=== PATIENT | female | born 1985 | race Caucasian/White ===

== ENCOUNTER 2023-10-01 08:24 | Outpatient (REF) | payer OTHER, SELFPAY ==
[2023-10-07 12:08] LABS: Age Gdln ACOG Testing Note (.); HPV Aptima Negative (Negative); IGP, Aptima HPV, rfx 16/18,45 Note (.)
== END 2023-10-02 07:58 | disposition home or self-care (01) ==
LOC: LAB 08:24
PROVIDERS: Visit Provider Physician Assistant
DX: Z01.419 Encounter for gynecological examination (general) (routine) without abnormal findings (principal)
CPT/HCPCS: 87624; G0145

== ENCOUNTER 2024-10-06 20:49 | Outpatient (REF) | payer OTHER, SELFPAY ==
--- OUTSIDE RECORDS SUMMARY | 2024-10-06 20:52 | XMS_ITS | CCD ---
Author Organization [facility] Care Team Providers Care Induction Coordination Engineer Name Role Phone Tavon Rangel Unavailable Souleymane Bolton Unavailable DR VANDANA LEONARD Admitting Unavailable AISHA, DR ROSS Attending Unavailable AISHA, DR ROSS Primary Care Unavailable AISHA, DR ROSS Consulting Unavailable Unavailable Primary Care Provider UnavailJESSICA Wei Attending Unavailable Unavailable Primary Care Provider UnavailTavon Villarreal Primary Care Unavailable Tavon Rangel Attending Unavailable Tavon Rangel Admitting Unavailable Tavon Rangel Attending Unavailable Kuns, Tavon Admitting Unavailable Kuns, Tavon Primary Care Unavailable KunsTavon Attending Unavailable Kuns, Tavon Admitting Unavailable Kuns, Tavon Primary Care Unavailable Kuns, Tavon Attending Unavailable Kuns, Tavon Admitting Unavailable Kuns, Tavon Primary Care Unavailable Allergies Allergy Classification Reported Allergen(s) Allergy Type Date of Onset Reaction(s) Facility (20 sources) Acetaminophen / HYDROcodone; Translations: [Vicodin] Drug Allergy 02-04-20 15 hives and vomiting [facility] Repository (20 sources) Morphine; Translations: [MORPHINE] Drug Allergy 03-28-20 07 Hives [facility] Work Phone: (20 sources) Penicillin Drug Allergy [employer] Other (20 sources) rosuvastatin Drug Allergy 12-13-19 22 Headache/nause a [facility] Other (20 sources) Sulfacetamide Drug Allergy [facility] [employer] [facility] [employer] Other (1 source) Morphine Drug Allergy 02-04-20 15 [facility] Repository (2 sources) Penicillins; Translations: [PENICILLINS] Drug allergy (disorder) 05-02-20 06 [facility] Repository (1 source) Sulfonamides (Antibiotic) Drug allergy (disorder) 02-04-20 15 [facility] Repository (1 source) Morphine Drug Allergy hives and can't breathe [facility] Other (2 sources) Penicillins Propensity to adverse reactions 05-02-20 06 Rash [facility] (3 sources) Sulfonamides (Antibiotic); Translations: [SULFA (SULFONAMIDE ANTIBIOTICS)] Propensity to adverse reactions 08-31-20 03 Rash, Hives [facility] Work Phone: (1 source) Acetaminophen Drug Allergy 04-08-20 [facility] Repository (1 source) HYDROcodone Drug Allergy 04-08-20 [facility] Repository (1 source) Morphine Drug Allergy 04-08-20 24 [facility] Repository (1 source) Penicillins Drug allergy (disorder) 04-08-20 24 [facility] Repository (1 source) rosuvastatin Drug Allergy 04-08-20 24 [facility] Repository (1 source) Sulfacetamide Drug Allergy 04-08-20 [facility] Repository Medications Current Medications Medication Drug Class(es) Dates Sig (Normalized) Sig (Original) 0.5 ML semaglutide 0.5 MG/ML Auto-Injector [Wegovy] (1 source) Start: 07-17-2022 inject 0.5 mL by subcutaneous injection every week Wegovy 0.25 MG/0.5ML 0.5 ml Subcutaneous Weekly for 30 days Jul, Active 3 ML semaglutide 1.34 MG/ML Pen Injector [Ozempic] (10 sources) inject 1 mg by subcutaneous injection every week Ozempic (1 MG/DOSE) 4 MG/3ML DIAL AND INJECT UNDER THE SKIN 1 MG WEEKLY Subcutaneous weekly Active inject 1 mg by subcu taneous injection every week Ozempic (1 MG/DOSE) 4 MG/3ML DIAL AND INJECT UNDER THE SKIN 1 MG WEEKLY Subcutaneous weekly for 28 days Active inject 1 mg by subcu taneous injection every week Ozempic (1 MG/DOSE) 4 MG/3ML DIAL AND INJECT UNDER THE SKIN 1 MG WEEKLY for 28 Active acetaminophen 500 mg oral tablet (2 sources) Start: 11-11-2009 acetaminophen(TYLENOL EXTRA STRENGTH 500 MG TAB) Take two(2) tablets every four(4) to six(6) hours as needed. 0 11/11/2009 Active Comment on above: Take two(2) tablets every four(4) to six(6) hours as needed. acetaminophen 325 mg / oxyCODONE hydrochloride 5 mg oral tablet (2 sources) Opioid Agonist Start: 04-18-2007 oxycodone-acetaminophen (PERCOCET) 5-325 mg ORAL Tab as needed/ not every day 0 04/18/2007 Active Comment on above: as needed/ not every day ALPRAZolam 1 mg oral tablet (2 sources) Benzodiazepine Start: 12-10-2023 ALPRAZolam 1 MG 1 or 2 tablets Orally every 8 hours as needed for flying Dec, Active atorvastatin 10 mg oral tablet (20 sources) HMG-CoA Reductase Inhibitor Start: 12-13-2021 take 1 tablet by mouth every twenty-fou r hours Atorvastatin Calcium 10 MG 1 tablet Orally Once a day Dec, Active take 1 tablet by mouth once sierra y atorvastatin (LIPITOR) 40 mg tablet Take 40 mg by mouth once daily. 0 Active azithromycin 250 mg oral tablet (6 sources) Macrolide Antimicrobial Start: 11-27-2023 Zithro max Z-Austin 250 MG as directed Orally as directed Nov, Active Start: 02-08-2022 take 2 tablets by [facility] once daily, then take 1 tablet by mouth once daily Azithromycin 250 MG 2 tablet on the first day, then 1 tablet daily for 4 days Orally as directed Jan, Active cefuroxime 500 mg oral tablet (3 sources) Cephalosporin Antibacterial Start: 04-08-2019 take 1 tablet by mouth every twelve hours Cefuroxime Axetil 500 MG 1 tablet Orally Twice a day for 7 days April, Active Chantix Starting Month Austin 0.5 MG X 11 & 1 MG X 42 (3 sources) Chantix Starting Month Austin 0.5 MG X 11 & 1 MG X 42 as directed Orally As directed Active Chantix Starting Month [place] 0.5 MG X 11 & 1 MG X 42 as directed Orally As directed for 30 days Active clarithromycin 500 mg oral tablet (1 source) Macrolide Antimicrobial Start: 03-13-2024 End: 03-20-2024 take 1 tablet by mouth twice daily clarithromycin (BIAXIN) 500 mg Take 1 tablet by mouth two times a day for 7 days. 14 tablet 0 03/13/2024 03/20/2024 Active Comment on above: Take 1 tablet by anton th two times a day for 7 days. cyclobenzaprine hydrochloride 10 mg oral tablet (20 sources) Muscle Relaxant Start: 02-06-2021 take 1 tablet by mouth three times daily as needed Cyclobenzaprine HCl 10 MG 1 tablet Orally tid prn for 30 days Jan, Active 21 day ethinyl estradiol 0.760058 mg/hr / etonogestrel 0.005 mg/hr vaginal system (20 sources) Progestin, Estrogen Start: 03-21-2007 Etonogestrel-Ethinyl Estradiol (NUVARING) 0.12-0.015 mg/24 hr VAGINAL Ring as directed 0 03/21/2007 Active NuvaRing 0.12-0. 015 MG/24HR 1 ring Vaginal Active Comment on above: as directed 1 ml galcanezumab-gnlm 120 mg/ml auto-injector (20 sources) Start: 02-15-2020 inject 1 mL by subcutaneous injection every month Emgality 120 MG/ML 1 ml Subcutaneous monthly Jan, Active inject 120 mg by sub cutaneous injection every month galcanezumab-gnlm (EMGALITY SYRINGE) 120 mg/mL syringe Inject 120 mg subcutaneously once every month. Do not shake. 0 Active ibuprofen 800 mg oral tablet (20 sources) Nonsteroidal Anti-inflammatory Drug Start: 03-17-2020 take 1 tablet by mouth three times daily at mealtime as needed Ibuprofen 800 MG 1 tablet with food or milk as needed Orally Three times a day PRN Mar, Active methylPREDNISolone (1 source) Corticosteroid Start: 03-23-2024 methylPREDNISolone (MEDROL DOSE-PACK) 4 mg Dose-Pack As Instructed per package 21 tablet 0 03/23/2024 Active ozempic (1 mg/dose) 4 mg/3ml solution pen-injector (4 sources) inject 1 mg by subcutaneous injection every week Ozempic (1 MG/DOSE) 4 MG/3ML DIAL AND INJECT UNDER THE SKIN 1 MG WEEKLY Subcutaneous weekly Active 0.25 mg, 0.5 mg dose 1.5 ml semaglutide 1.34 mg/ml pen injector (4 sources) Start: 07-30-2022 Ozempic (0.25 or 0.5 MG/DOSE) 2 MG/1.5ML 0.25 mg for 4 weeks then increase to 0.5 mg Subcutaneous Weekly for 30 day(s) Jul, Active Ozempic (0.25 or 0.5 MG/DOSE) 2 MG/1.5ML 0.5 mg p.o. weekly for 30 Active SUMAtriptan 100 mg oral tablet (20 sources) Serotonin-1b and Serotonin-1d Receptor Agonist Start: 11-20-2017 take 1 tablet by mouth once daily as needed SUMAtriptan Succinate 100 mg 1 tablet Orally once a day as needed PRN Nov, Active varenicline 1 mg oral tablet (5 sources) Partial Cholinergic Nicotinic Agonist Start: 11-05-2023 take 1 tablet by mouth every twelve hours Varenicline Tartrate(Continue ) 1 MG 1 tablet Orally bid for 30 days Chantix Nov, Active zolpidem tartrate 10 mg oral tablet (20 sources) gamma-Aminobutyric Acid-ergic Agonist Start: 02-26-2023 take 1 tablet by mouth at bedtime as needed Zolpidem Tartrate 10 mg 1 tablet at bedtime as needed Orally at bedtime PRN Jan, Active Start: 05-17-2022 take 1 tablet by anton th at bedtime as needed Zolpidem Tartrate 10 mg 1 tablet at bedtime as needed Orally at bedtime PRN May, Active Start: 10-25-2021 take 1 tablet by anton th once daily at bedtime as needed Zolpidem Tartrate 10 mg 1 tablet at bedtime as needed Orally QHS PRN Oct, Active Completed/Discontinued Medications Medication Drug Class(es) Dates Sig (Normalized) Sig (Original) famotidine 26.6 mg / ibuprofen 800 mg oral tablet (9 sources) Nonsteroidal Anti-inflammatory Drug, Histamine-2 Receptor Antagonist Start: 12-27-2020 take 1 tablet by mouth every eight hours Duexis 800-26.6 MG 1 tablet Orally Three times a day PRN Dec, Not-Taking Ketorolac (20 sources) Nonsteroidal Anti-inflammatory Drug, Cyclooxygenase Inhibitor Start: 03-04-2017 Toradol per 15 mg Mar, 2.0 cc metFORMIN hydrochloride 500 mg oral tablet (4 sources) Biguanide Start: 05-17-2022 take 1 tablet by mouth every twelve hours metFORMIN HCl 500 MG 1 tablet with a meal Orally Twice a day for 30 day(s) May, Not-Taking Nalbuphine (20 sources) Opioid Agonist/Antagonist Start: 03-10-2013 Nubain per 10 mg Mar, 1 mL tiZANidine 4 mg oral tablet (11 sources) Central alpha-2 Adrenergic Agonist Start: 01-18-2020 take 1 tablet by mouth twice daily as needed tiZANidine HCl 4 MG 1 tablet as needed Orally BID prn for 30 days Jan, Not-Taking Start: 11-11-2009 tizanidine hcl (ZANAFLEX 4 MG TAB) Take one(1) tablet daily at bedtime 0 11/11/2009 Active Comment on above: Take one(1) tablet d aily at bedtime Problems Active Problems Problem Classification Problem Date Documented Da te Episodic/Chronic Anxiety disorders (20 sources) Fear of flying; 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 Diabetes mellitus without complication (20 sources) Hyperglycemia; Translations: [Hyperglycemia, unspecified] Onset: 2 Resolved: 2 Episodic Diseases of white blood cells (20 sources) Leukocytosis; Translations: [Elevated white blood cell count, unspecified] Onset: 2 Resolved: 2 Chronic Disorders of lipid metabolism (20 sources) Hyperlipidemia; Translations: [Hyperlipidemia, unspecified] Onset: 2 Resolved: 2 Chronic Esophageal disorders (20 sources) Gastroesophageal reflux disease; Translations: [Gastro-esophageal reflux disease without esophagitis] Chronic Headache; including migraine (20 sources) Migraine; Translations: [Migraine, unspecified, not intractable, without status migrainosus] Onset: 2 Resolved: 2 Chronic Headache; including migraine (20 sources) Headache; Translations: [Headache] Episodic Immunizations and screening for infectious disease (2 sources) Encounter for screening for human papillomavirus (HPV); Translations: [Encounter for immunization] Onset: 2 Episodic Malaise and fatigue (8 sources) Fatigue; Translations: [Chronic fatigue, unspecified] Chronic Nausea and vomiting (2 sources) Nausea Episodic Other aftercare (5 sources) Encounter for therapeutic drug level monitoring Episodic Other circulatory disease (1 source) Hypotension, unspecified Episodic Other connective tissue disease (20 sources) Polymyalgia; Translations: [Polymyalgia rheumatica] Chronic Other connective tissue disease (20 sources) Pain in right hand; Translations: [Pain in right hand] Episodic Other connective tissue disease (20 sources) Weakness of right hand; Translations: [Other symptoms and signs involving the musculoskeletal system] Episodic Other gastrointestinal disorders (19 sources) Constipation; Translations: [Constipation, unspecified] Episodic Other gastrointestinal disorders (2 sources) Constipation, unspecified Episodic Other nervous system disorders (20 sources) Carpal tunnel syndrome; Translations: [Carpal tunnel syndrome, unspecified upper limb] Chronic Other non-traumatic joint disorders (20 sources) Shoulder joint pain; Translations: [Pain in right shoulder] Episodic Other non-traumatic joint disorders (20 sources) Knee pain; Translations: [Pain in left knee] Episodic Other nutritional; endocrine; and metabolic disorders (20 sources) Body mass index 30+ - obesity; Translations: [Obesity, unspecified] Chronic Other nutritional; endocrine; and metabolic disorders (20 sources) Obese class I; Translations: [Body mass index (BMI) 34.0-34.9, adult] Chronic Other nutritional; endocrine; and metabolic disorders (20 sources) Obesity; Translations: [Obesity, unspecified] Chronic Other nutritional; endocrine; and metabolic disorders (1 source) Body mass index (BMI) 34.0-34.9, adult Onset: 2 Resolved: 2 Chronic Other nutritional; endocrine; and metabolic disorders (19 sources) Metabolic syndrome X; Translations: [Metabolic syndrome] Chronic Other nutritional; endocrine; and metabolic disorders (4 sources) Obesity, unspecified Chronic Other nutritional; endocrine; and metabolic disorders (5 sources) Metabolic syndrome Chronic Other nutritional; endocrine; and metabolic disorders (2 sources) Overweight Episodic Other upper respiratory infections (20 sources) Sinusitis; Translations: [Chronic sinusitis, unspecified] Onset: 2 Resolved: 2 Chronic Otitis media and related conditions (2 sources) Otitis media, unspecified, bilateral; Translations: [Dysfunction of bilateral eustachian tubes] Episodic Residual codes; unclassified (20 sources) Insomnia; Translations: [Insomnia, unspecified] Episodic Residual codes; unclassified (20 sources) FH: Autoimmune disease; Translations: [Family history of diseases of the blood and blood-forming organs and certain disorders involving the immune mechanism] Episodic Residual codes; unclassified (6 sources) Insomnia, unspecified Onset: 2 Resolved: 2 Episodic Residual codes; unclassified (5 sources) Tobacco use Episodic Spondylosis; intervertebral disc disorders; other back problems (2 sources) Cervicalgia Onset: 2 Resolved: 2 Episodic Substance-related disorders (20 sources) Tobacco user; Translations: [Nicotine dependence, cigarettes, uncomplicated] Chronic Unclassified (1 source) Chronic fatigue, unspecified; Translations: [Chronic fatigue, unspecified] Onset: 3 Past or Other Problems Problem Classification Problem Date Documented Da te Episodic/Chronic Abdominal hernia (2 sources) Inguinal hernia; Translations: [Unilateral inguinal hernia, without obstruction or gangrene, not specified as recurrent] Onset: 04-22-2007 04-22-2007 Episodic Administrative/social admission (20 sources) Dietary management surveillance; Translations: [Dietary counseling and surveillance] Onset: 12-04-2023 Episodic Allergic reactions (2 sources) Contact dermatitis; Translations: [Unspecified contact dermatitis due to other agents] Onset: 05-21-2006 05-21-2006 Episodic Malaise and fatigue (3 sources) Other fatigue; Translations: [Other fatigue] Onset: 02-08-2022 Resolved: 02-08-2022 Episodic Other ear and sense organ disorders (1 source) Otalgia, left ear Onset: 02-08-2022 Resolved: 02-08-2022 Episodic Other screening for suspected conditions (not mental disorders or infectious disease) (4 sources) Encounter for screening for malignant neoplasm of cervix; Translations: [ENC SCREENING MALIG NEOPLASM CERV] Onset: 02-06-2022 Episodic Results Test Name Value Interpretation Reference Range Facil ity A1C with Estimated Average G [place] 04-07-2024 Glucose [Mass/Vol] 108 mg/dL Normal [facility] Comment on above: Order Comment: Reaso n for Exam Prediabetes Result Comment: PERF ORMED BY: [place] [address] [place] [address] PATHOLOGIST BOBBIN INSPECTOR TRU DUNCAN M.D. Performed By: #### A 1C WT eA #### [facility] [address] HbA1c (Bld) [Mass fraction] 5.4 % Normal 4.3-5.6 [facility] Comment on above: Order Comment: Reaso n for Exam Prediabetes Result Comment: Incr eased risk for diabetes: 5.7 - 6.4 diabetes: >6.4 glycemic control for adults with diabetes: <7.0 Performed By: #### A 1C WT eA #### [facility] [address] Comprehensive Metabolic Pane tomi 04-07-2024 Albumin [Mass/Vol] 4.4 g/dL Normal 3.5-5.7 [facility] Comment on above: Order Comment: Reaso n for Exam Hyperlipidemia Performed By: #### C MP, LIPID #### [address] Albumin/Globulin [Mass ratio] 1.8 {ratio} Normal [facility] Comment on above: Order Comment: Reaso n for Exam Hyperlipidemia Performed By: #### C MP, LIPID #### [address] ALP [Catalytic activity/Vol] 38 U/L Normal 34-104 [facility] Comment on above: Order Comment: Reaso n for Exam Hyperlipidemia Performed By: #### C MP, LIPID #### [address] ALT [Catalytic activity/Vol] 11 U/L Normal 7-52 [facility] Comment on above: Order Comment: Reaso n for Exam Hyperlipidemia Performed By: #### C MP, LIPID #### [address] Anion gap [Moles/Vol] 12.0 mmol/L Normal 6.0-15.0 [facility] Comment on above: Order Comment: Reaso n for Exam Hyperlipidemia Performed By: #### C MP, LIPID #### [address] AST [Catalytic activity/Vol] 13 U/L Normal 13-39 [facility] Comment on above: Order Comment: Reaso n for Exam Hyperlipidemia Performed By: #### C MP, LIPID #### [facility] [address] Bilirubin [Mass/Vol] 0.4 mg/dL Normal 0.3-1.0 [facility] Comment on above: Order Comment: Reaso n for Exam Hyperlipidemia Performed By: #### C MP, LIPID #### [facility] [address] Calcium [Mass/Vol] 9.3 mg/dL Normal 8.6-10.3 [facility] Comment on above: Order Comment: Reaso n for Exam Hyperlipidemia Performed By: #### C MP, LIPID #### [facility] [address] [place] [address] Chloride [Moles/Vol] 108 mmol/L High 98-107 [facility] Comment on above: Order Comment: Reaso n for Exam Hyperlipidemia Performed By: #### C MP, LIPID #### [facility] [address] [place] [address] CO2 [Moles/Vol] 25.3 mmol/L Normal 21.0-31.0 [facility] Comment on above: Order Comment: Reaso n for Exam Hyperlipidemia Performed By: #### C MP, LIPID #### [facility] [address] [place] [address] Creatinine [Mass/Vol] 0.66 mg/dL Normal 0.60-1.20 [facility] Comment on above: Order Comment: Reaso n for Exam Hyperlipidemia Performed By: #### C MP, LIPID #### [facility] [address] [place] [address] [place] GFR/1.73 sq M.predicted MDRD (S/P/Bld) [Vol rate/Area] mL/min/{1.73_m2} Normal [facility] Comment on above: Order Comment: Reaso n for Exam Hyperlipidemia Performed By: #### C MP, LIPID #### [facility] [address] [place] [address] [place] Globulin (S) [Mass/Vol] 2.5 g/dL Normal [facility] Comment on above: Order Comment: Reaso n for Exam Hyperlipidemia Performed By: #### C MP, LIPID #### [address] Glucose [Mass/Vol] 97 mg/dL Normal 70-100 [facility] Comment on above: Order Comment: Reaso n for Exam Hyperlipidemia Result Comment: [facility] Glucose Reference Range is dependent on time and content of last meal. Glucose of more than 200 mg/dL in a nonstressed, ambulatory subject supports the diagnosis of Diabetes Mellitus. ADA recommended reference range Performed By: #### C MP, LIPID #### [address] Potassium [Moles/Vol] 4.3 mmol/L Normal 3.5-5.1 [facility] Comment on above: Order Comment: Reaso n for Exam Hyperlipidemia Performed By: #### C MP, LIPID #### [address] Protein [Mass/Vol] 6.9 g/dL Normal 6.4-8.9 [facility] Comment on above: Order Comment: Reaso n for Exam Hyperlipidemia Performed By: #### C MP, LIPID #### [address] Sodium [Moles/Vol] 141 mmol/L Normal 136-145 [facility] Comment on above: Order Comment: Reaso n for Exam Hyperlipidemia Performed By: #### C MP, LIPID #### [address] Urea nitrogen [Mass/Vol] 16 mg/dL Normal 7-25 [facility] Comment on above: Order Comment: Reaso n for Exam Hyperlipidemia Performed By: #### C MP, LIPID #### [address] Lipid Panelon 04-07-2024 Cholesterol [Mass/Vol] 166 mg/dL Normal 140-200 [facility] Comment on above: Order Comment: Reaso n for Exam Hyperlipidemia Result Comment: Chol less than 200 mg/dl low risk Chol 201-239 mg/dl borderline risk Chol 240 mg/dl and greater high risk Performed By: #### C MP, LIPID #### [facility] [address] [place] [id number] [place] Cholesterol in HDL [Mass/Vol] 59 mg/dL Normal 23-92 [facility] Comment on above: Order Comment: Reaso n for Exam Hyperlipidemia Result Comment: HDL CHOL ATP-III CLASSIFICATION Cardiovascular Risk HDL > or equal to 60 mg/dL LOW HDL < 40 mg/dL HIGH Performed By: #### C MP, LIPID #### [facility] [address] [place] [address] [place] Cholesterol.total/C holesterol in HDL [Mass ratio] 2.8 {ratio} Normal <5.0 [facility] Comment on above: Order Comment: Reaso n for Exam Hyperlipidemia Result Comment: PERF ORMED BY: [place] [address] PATHOLOGIST BOBBIN INSPECTOR TRU DUNCAN M.D. Performed By: #### C MP, LIPID #### [facility] [address] LDL Cholesterol,Calcula abdirashid 95 mg/dL Normal 0-100 [facility] Comment on above: Order Comment: Reaso n for Exam Hyperlipidemia Result Comment: LDL ATP III CLASSIFICATION LDL less than 100 mg/dL Optimal LDL 100-129 mg/dL Near or above optimal LDL 130-159 mg/dL Borderline high LDL 160-189 mg/dL High LDL greater than 189 mg/dL Very high Performed By: #### C MP, LIPID #### [facility] [address] [place] [id number] [place] Triglyceride w/Reflex 59 mg/dL Normal 0-149 [facility] Comment on above: Order Comment: Reaso n for Exam Hyperlipidemia Result Comment: TRIG ATP III CLASSIFICATION TRIG less than 150 mg/dL Normal TRIG 150-199 mg/dL Borderline high TRIG 200-500 mg/dL High TRIG greater than 500 mg/dL Very high Standard traceable to the Center for Disease Conrtrol and Prevention (CDC) test method. Performed By: #### C MP, LIPID #### [facility] [address] [place] [id number] [place] VLDL CHOLESTEROL 11 mg/dL Normal [facility] Comment on above: Order Comment: Kaleb benoit for Exam Hyperlipidemia Performed By: #### C MP, LIPID #### [facility] [address] [place] [id number] [facility] CNOVon 03-23-2024 CNOV Office Visit (OTOLCR ) JUSTINO KELLER ([id number]) 1985 F Date Time Provider Department 03/23/24 9:45 AM JESSICA CEDILLO OTOLCR During your visit today, we recorded the following information about you: Jessica Cedillo PA-C 03/23/2024 10:05 AM Signed History of Present Illness Ms. JUSTINO KELLER is a 38 year old year old female presenting for: referred by No referring provider defined for this encounter. And is a patient of No primary care provider on file. To use this Smartlink, specify the provider ID whose address you want to display, e.g., .[email or web address][1 (where 1 is the provider ID). Communication will be via the electronic record and letter. States that both ears have reduced hearing for around one month, sudden onset after an upper respiratory infection. She will experience a throbbing sensation in both ears at night, and some ringing during the day. She states that she has felt this sensation of muffled hearing and pressure gradually improving in both ears, and this morning she was able to pop her ears with valsalva for the first itme with further improvement. This has happened before in the past, but has never lasted this long. She was evaluated by PCP and Dr. Skinner in the past month, both noted bilateral middle ear effusion per patient. Otalgia: denies Otorrhea: denies Dizziness/Imbalance: denies Facial Numbness, Weakness or Tingling: denies Ear Surgery or Tube Placement: Reports a tube in the Left ear ~4-5 years ago from an outside ENT. Also two rounds in childhood. Medical History: ACTIVE PROBLEM LIST DERMATITIS , CONTACT Inguinal Hernia Without Mention of Obstruction Or Gangrene, Unilateral Or Unspecified, (Not Specified As Recurrent) Surgical History: No past surgical history on file. Allergies: ALLERGIES Allergen Reactions Morphine Hives Penicillins Rash Sulfa (Sulfonamide * Rash, Hives Medications: Current Outpatient Medications on File Prior to Visit Medication Sig tizanidine hcl(ZANAFLEX 4 MG TAB) Take one(1) tablet daily at bedtime acetaminophen(TYLENOL EXTRA STRENGTH 500 MG TAB) Take two(2) tablets every four(4) to six(6) hours as needed. oxycodone-acetaminophe n (PERCOCET) 5-325 mg ORAL Tab as needed/ not every day Etonogestrel-Ethinyl Estradiol (NUVARING) 0.12-0.015 mg/24 hr VAGINAL Ring as directed No current facility-administered medications on file prior to visit. Social History: No family history on file. Review of Systems: Positive: As above Negative: Fever, shortness of breath Objective: Last menstrual period 03/11/2007. Appearance: Well appearing, alert, in no acute distress, well-hydrated, well nourished. Communication: Able to speak and communicates clearly Head/Face: normocephalic, no masses, lesions, tenderness or abnormalities Facial nerve: Normal 1/6 bilaterally Skin: no skin lesions or scarring on face Ophthalmic: Full ocular motility intact; pupils symmetric Ears: AD EAC clear. TM intact, slightly retracted. Middle ear aerated. EAC clear. TM intact, slightly retracted with dimeric area anteroinferior consistent with previous PE tube placement. Middle ear aerated. Jeremías Angela AD [phone] Center AC>BC AC>BC 1024 Nose: external exam with straight profile Oropharynx: Uvula hangs midline; mucosa is pink and moist; tonsils present Neck: No cervical or supraclavicular lymphadenopathy Neuro/Psych.: Alert and oriented - no nystagmus Cranial nervesIII, IV, : EOM normal VII: Normal strength in all divisions IX, X: Normal voice, platal elevation and sensation XII: Tongue mobility normal Gait: normal for age Eye movements: full in all gaze positions, no nystagmus Assessment: H69.93 Dysfunction of both eustachian tubes (primary encounter diagnosis) Plan: Prescribed medrol dose pack, and instructed patient to continue flonase BID until symptoms resolve Instructed patient to reach out to me in 1 month if she continues to experience ear pressure/muffling, we will obtain an audiogram at that time. Jessica Cedillo PA-C Otology Medical Decision Making: Problems: Moderate: New problem with uncertain prognosis Risk: Low: Low risk from testing/treatment Moderate: Drug management Medical Decision Making Level: 4 - Moderate Jessica Cedillo PA-C 03/23/2024 9:56 AM Addendum Take the medrol dose pack, stay on the flonase until you feel back to your baseline. If you get to 8 week aleah and you still feel symptoms then reach out, we will schedule a hearing test and then follow-up after Allergies As of Date: 03/23/2024 Noted Allergy Reaction MORPHINE 03/28/2007 4 - Hives PENICILLINS 05/02/2006 2 - Rash SULFA (SULFONAMIDE ANTIBIOTICS) 08/31/2003 2 - Rash 4 - Hives Date Reviewed: 03/23/2024 Reviewed by: Kayla Dill RN - Fully Assessed Reason for Visit: Ear Infection [816] Cmt: Bilateral ear infec (more content not included)... Normal [facility] Dung 03-11-2024 CNPN Telephone (OTOLMN) JUSTINO MONTGOMERY ([id number]) 1985 F Date Time Provider Department 03/11/24 SHUN SKINNER OTOLMN During your visit today, we recorded the following information about you: April Alvarez 03/11/2024 3:32 PM Signed Person Calling: Patient Reason for Call: Patient calked and stated that she seen Dr. Skinner with her mom yesterday, and a prescription was supposed to be put in for an antibiotic and another medication for infected ears. Pt Phone #: [phone] Pharmacy Name and # : [facility] [phone] Pt last seen: Visit date not found Candida Topete RN 03/11/2024 3:57 PM Signed Called patient and she said that Dr. Skinner saw her yesterday when she came for an appointment with her mom. She states that Dr. Skinner was going to send in antibiotic ear drops until she could see Jessica the IRENE later in the month. Would you be able to assist in filling the ear drops? Candida Foote RN 03/11/2024 4:24 PM Signed Called and updated provider April Alvarez 03/12/2024 3:28 PM Signed Patient called back and said the pharmacy has yet received the prescription for the medication. She would like a call back with an update. April Alvarez Allergies As of Date: 03/11/2024 Noted Allergy Reaction MORPHINE 03/28/2007 4 - Hives PENICILLINS 05/02/2006 2 - Rash SULFA (SULFONAMIDE ANTIBIOTICS) 08/31/2003 2 - Rash 4 - Hives Date Reviewed: 11/11/2009 Reviewed by: Chadwick Lyle - Reviewed Reason for Visit: Medication Problem [65] Order(s):clarithromyci n (BIAXIN) 500 mgTake 1 tablet by mouth two times a day for 7 days.Disp: 14 tabletRfl: 0 Prescriptions as of 03/13/2024 - clarithromycin (BIAXIN) 500 mg Take 1 tablet by mouth two times a day for 7 days. - tizanidine hcl(ZANAFLEX 4 MG TAB) Take one(1) tablet daily at bedtime - acetaminophen(TYLENOL EXTRA STRENGTH 500 MG TAB) Take two(2) tablets every four(4) to six(6) hours as needed. - oxycodone-acetaminophe n (PERCOCET) 5-325 mg ORAL Tab as needed/ not every day - Etonogestrel-Ethinyl Estradiol (NUVARING) 0.12-0.015 mg/24 hr VAGINAL Ring as directed Problem List As Of Date 03/11/2024 Noted Resolved DERMATITIS , CONTACT [L25.8] 05/21/2006 UNILAT INGUINAL HERNIA [K40.90] 04/22/2007 Prescriptions ordered this encounter Disp Refills Start End CLARITHROMYCIN 500 MG TABLET 14 t* 0 03/13/2024 03/20/2024 Route: ORAL Sig: Take 1 tablet by mouth two times a day for 7 days. Encounter Status:Closed by BRUCE RAMIREZ on 03/13/24 Normal [facility] CMV IgG Antibodyon 3 CMV IgG Antibody <0.60 Normal 0.00-0.59 [facility] Comment on above: Order Comment: Reaso n for Exam Hyperlipidemia Result Comment: Nega tive <0.60 Equivocal 0.60 - 0.69 Positive >0.69 Performed By: #### C MP, LIPID #### [address] CMV IgM Antibodyon 3 CMV IgM Antibody <30.0 Normal 0.0-29.9 [facility] Comment on above: Order Comment: Reaso n for Exam Hyperlipidemia Result Comment: Nega tive <30.0 Equivocal 30.0 - 34.9 Positive >34.9 A positive result is generally indicative of acute infection, reactivation or persistent IgM production. Performed at: [facility] [address] [id number] Online Marketing Analyst: Gavin Allan PhD, Phone: [phone] PERFORMED BY: [place] [address] PATHOLOGIST BOBBIN INSPECTOR TRU DUNCAN M.D. Performed By: #### C MP, LIPID #### [address] EBV Acute Infection Ab Profi elmira 10-23-2023 EBV Ab VCA, IgG 525.0 High 0.0-17.9 [facility] Comment on above: Order Comment: Reaso n for Exam Hyperlipidemia Result Comment: Nega tive <18.0 Equivocal 18.0 - 21.9 Positive >21.9 Performed By: #### C MP, LIPID #### [address] EBV Ab VCA, IgM <36.0 Normal 0.0-35.9 [facility] Comment on above: Order Comment: Reaso n for Exam Hyperlipidemia Result Comment: Nega tive <36.0 Equivocal 36.0 - 43.9 Positive >43.9 Performed By: #### C MP, LIPID #### [address] EBV Interp Normal . [facility] Comment on above: Order Comment: Reaso n for Exam Hyperlipidemia Result Comment: EBV Interpretation Chart Solis: Antibody Present + Antibody Absent - Interpretation VCA-IgM VCA-IgG EBNA-IgG No previous infection/ - - - Susceptible Primary infection (new + + - or recent) Past Infection +or- + + See comment below* + - - *Results indicate infection with EBV at some time however cannot predict the timing of the infection since antibodies to EBNA usually develop after primary infection or, alternatively, approximately 5-10% of patients with EBV never develop antibodies to EBNA. Performed at: [facility] [address] [id number] Online Marketing Analyst: Gavin Allan PhD, Phone: [phone] Performed By: #### C MP, LIPID #### [address] EBV Nuclear Antigen Abs, IgG >600.0 High 0.0-17.9 [facility] Comment on above: Order Comment: Reaso n for Exam Hyperlipidemia Result Comment: Nega tive <18.0 Equivocal 18.0 - 21.9 Positive >21.9 Performed By: #### C MP, LIPID #### [address] [place] 10-23-2023 [place] Negative Normal Negative [facility] Comment on above: Order Comment: Reaso n for Exam Chronic fatigue Result Comment: PERF ORMED BY: [place] [address] PATHOLOGIST BOBBIN INSPECTOR TRU DUNCAN M.D. Performed By: #### M ONOTEST #### [address] #### CMVIGG, CMVIGM, EBV ACUTE PROF #### [facility] , A1C with Estimated Average G luon 10-03-2023 Glucose [Mass/Vol] 117 mg/dL Normal [facility] Comment on above: Order Comment: Reaso n for Exam Pre-diabetes Result Comment: PERF ORMED BY: [place] [address] PATHOLOGIST BOBBIN INSPECTOR TRU DUNCAN M.D. Performed By: #### T 4F, TSH3, CBC, CMP, A1C WTH eA, LIPID #### [address] HbA1c (Bld) [Mass fraction] 5.7 % High 4.3-5.6 [facility] Comment on above: Order Comment: Reaso n for Exam Pre-diabetes Result Comment: Incr eased risk for diabetes: 5.7 - 6.4 diabetes: >6.4 glycemic control for adults with diabetes: <7.0 Performed By: #### T 4F, TSH3, CBC, CMP, A1C WTH eA, LIPID #### [address] Complete Blood Count Auto Di ffon 10-03-2023 Basophils (Bld) [#/Vol] 0.1 10*3/uL Normal 0.0-0.2 [facility] Comment on above: Order Comment: Reaso n for Exam Hyperlipidemia Result Comment: PERF ORMED BY: [place] [address] PATHOLOGIST BOBBIN INSPECTOR TRU DUNCAN M.D. Performed By: #### T 4F, TSH3, CBC, CMP, A1C WTH eA, LIPID #### [place] [address] [place] Basophils/100 WBC (Bld) 0.8 % Normal . [facility] Comment on above: Order Comment: Reaso n for Exam Hyperlipidemia Performed By: #### T 4F, TSH3, CBC, CMP, A1C WTH eA, LIPID #### [place] [address] [place] Eosinophils (Bld) [#/Vol] 0.2 10*3/uL Normal 0.0-0.45 [facility] Comment on above: Order Comment: Reaso n for Exam Hyperlipidemia Performed By: #### T 4F, TSH3, CBC, CMP, A1C WTH eA, LIPID #### [facility] [address] [place] [address] [place] Eosinophils/100 WBC (Bld) 2.4 % Normal . [facility] Comment on above: Order Comment: Reaso n for Exam Hyperlipidemia Performed By: #### T 4F, TSH3, CBC, CMP, A1C WTH eA, LIPID #### [facility] [address] Erythrocyte distribution width (RBC) [Ratio] 13.5 % Normal 11.9-15.3 [facility] Comment on above: Order Comment: Reaso n for Exam Hyperlipidemia Performed By: #### T 4F, TSH3, CBC, CMP, A1C WTH eA, LIPID #### [facility] [address] [place] [address] Hematocrit (Bld) [Volume fraction] 41.3 % Normal 34.0-46.4 [facility] Comment on above: Order Comment: Reaso n for Exam Hyperlipidemia Performed By: #### T 4F, TSH3, CBC, CMP, A1C WTH eA, LIPID #### [facility] [address] [place] [address] [place] Hemoglobin (Bld) [Mass/Vol] 14.0 g/dL Normal 11.8-15.4 [facility] Comment on above: Order Comment: Reaso n for Exam Hyperlipidemia Performed By: #### T 4F, TSH3, CBC, CMP, A1C WTH eA, LIPID #### [facility] [address] [place] [address] [place] Lymphocytes (Bld) [#/Vol] 2.0 10*3/uL Normal 1.00-4.8 [facility] Comment on above: Order Comment: Reaso n for Exam Hyperlipidemia Performed By: #### T 4F, TSH3, CBC, CMP, A1C WTH eA, LIPID #### [facility] [address] [place] [address] [place] Lymphocytes/100 WBC (Bld) 19.4 % Normal . [facility] Comment on above: Order Comment: Reaso n for Exam Hyperlipidemia Performed By: #### T 4F, TSH3, CBC, CMP, A1C WTH eA, LIPID #### [address] MCH (RBC) [Entitic mass] 31.2 pg Normal 24.7-34.3 [facility] Comment on above: Order Comment: Reaso n for Exam Hyperlipidemia Performed By: #### T 4F, TSH3, CBC, CMP, A1C WTH eA, LIPID #### [address] MCV (RBC) [Entitic vol] 92.2 fL Normal 80-100 [facility] Comment on above: Order Comment: Reaso n for Exam Hyperlipidemia Performed By: #### T 4F, TSH3, CBC, CMP, A1C WTH eA, LIPID #### [address] Mean Corpuscular HGB Conc 33.8 g/dL Normal 32.0-35.0 [facility] Comment on above: Order Comment: Reaso n for Exam Hyperlipidemia Performed By: #### T 4F, TSH3, CBC, CMP, A1C WTH eA, LIPID #### [address] Monocytes (Bld) [#/Vol] 0.5 10*3/uL Normal 0.0-0.8 [facility] Comment on above: Order Comment: Reaso n for Exam Hyperlipidemia Performed By: #### T 4F, TSH3, CBC, CMP, A1C WTH eA, LIPID #### [address] Monocytes/100 WBC (Bld) 4.4 % Normal . [facility] Comment on above: Order Comment: Reaso n for Exam Hyperlipidemia Performed By: #### T 4F, TSH3, CBC, CMP, A1C WTH eA, LIPID #### [place] [address] [place] Neutrophils (Bld) [#/Vol] 7.7 10*3/uL Normal 1.8-7.7 [facility] Comment on above: Order Comment: Reaso n for Exam Hyperlipidemia Performed By: #### T 4F, TSH3, CBC, CMP, A1C WTH eA, LIPID #### [address] [place] [address] [place] Neutrophils/100 WBC (Bld) 73.0 % Normal . [facility] Comment on above: Order Comment: Reaso n for Exam Hyperlipidemia Performed By: #### T 4F, TSH3, CBC, CMP, A1C WTH eA, LIPID #### [facility] [address] [place] [id number] [place] NRBC% 0.1 /100{WBC} Normal 0-0.5 [facility] Comment on above: Order Comment: Reaso n for Exam Hyperlipidemia Performed By: #### T 4F, TSH3, CBC, CMP, A1C WTH eA, LIPID #### [facility] [address] [place] [address] [place] Platelet mean volume (Bld) [Entitic vol] 9.3 fL Normal 6.3-10.7 [facility] Comment on above: Order Comment: Reaso n for Exam Hyperlipidemia Performed By: #### T 4F, TSH3, CBC, CMP, A1C WTH eA, LIPID #### [facility] [address] [place] [id number] [place] Platelets (Bld) [#/Vol] 239 10*3/uL Normal 150-450 [facility] Comment on above: Order Comment: Reaso n for Exam Hyperlipidemia Performed By: #### T 4F, TSH3, CBC, CMP, A1C WTH eA, LIPID #### [facility] [address] [place] [id number] [place] RBC (Bld) [#/Vol] 4.48 10*6/uL Normal 3.60-5.00 [facility] Comment on above: Order Comment: Reaso n for Exam Hyperlipidemia Performed By: #### T 4F, TSH3, CBC, CMP, A1C WTH eA, LIPID #### [facility] [address] [place] [id number] [place] WBC (Bld) [#/Vol] 10.5 10*3/uL Normal 3.8-11.6 [facility] Comment on above: Order Comment: Reaso n for Exam Hyperlipidemia Performed By: #### T 4F, TSH3, CBC, CMP, A1C WTH eA, LIPID #### [facility] [address] [place] [id number] [facility] Comprehensive Metabolic Pane tomi 10-03-2023 Albumin [Mass/Vol] 4.3 g/dL Normal 3.5-5.7 [facility] Comment on above: Order Comment: Reaso n for Exam Hyperlipidemia;Pre-diabetes Reason for Exam Hyperlipidemia Reason for Exam Other fatigue Reason for Exam Hyperlipidemia;Other fatigue Performed By: #### T 4F, TSH3, CBC, CMP, A1C WTH eA, LIPID #### [facility] [address] [place] [id number] [facility] Albumin/Globulin [Mass ratio] 1.7 {ratio} Normal [facility] Comment on above: Order Comment: Reaso n for Exam Hyperlipidemia;Pre-diabetes Reason for Exam Hyperlipidemia Reason for Exam Other fatigue Reason for Exam Hyperlipidemia;Other fatigue Performed By: #### T 4F, TSH3, CBC, CMP, A1C WTH eA, LIPID #### [facility] [address] ALP [Catalytic activity/Vol] 36 U/L Normal 34-104 [facility] Comment on above: Order Comment: Reaso n for Exam Hyperlipidemia;Pre-diabetes Reason for Exam Hyperlipidemia Reason for Exam Other fatigue Reason for Exam Hyperlipidemia;Other fatigue Performed By: #### T 4F, TSH3, CBC, CMP, A1C WTH eA, LIPID #### [facility] [address] [place] [id number] [facility] ALT [Catalytic activity/Vol] 9 U/L Normal 7-52 [facility] Comment on above: Order Comment: Reaso n for Exam Hyperlipidemia;Pre-diabetes Reason for Exam Hyperlipidemia Reason for Exam Other fatigue Reason for Exam Hyperlipidemia;Other fatigue Performed By: #### T 4F, TSH3, CBC, CMP, A1C WTH eA, LIPID #### [facility] [address] [place] [id number] [facility] Anion gap [Moles/Vol] 10.7 mmol/L Normal 6.0-15.0 [facility] Comment on above: Order Comment: Reaso n for Exam Hyperlipidemia;Pre-diabetes Reason for Exam Hyperlipidemia Reason for Exam Other fatigue Reason for Exam Hyperlipidemia;Other fatigue Performed By: #### T 4F, TSH3, CBC, CMP, A1C WTH eA, LIPID #### [facility] [address] [place] [id number] [facility] AST [Catalytic activity/Vol] 10 U/L Low 13-39 [facility] Comment on above: Order Comment: Reaso n for Exam Hyperlipidemia;Pre-diabetes Reason for Exam Hyperlipidemia Reason for Exam Other fatigue Reason for Exam Hyperlipidemia;Other fatigue Performed By: #### T 4F, TSH3, CBC, CMP, A1C WTH eA, LIPID #### [facility] [address] [place] [id number] [facility] Bilirubin [Mass/Vol] 0.4 mg/dL Normal 0.3-1.0 [facility] Comment on above: Order Comment: Reaso n for Exam Hyperlipidemia;Pre-diabetes Reason for Exam Hyperlipidemia Reason for Exam Other fatigue Reason for Exam Hyperlipidemia;Other fatigue Performed By: #### T 4F, TSH3, CBC, CMP, A1C WTH eA, LIPID #### [facility] [address] [place] [address] [place] Calcium [Mass/Vol] 9.6 mg/dL Normal 8.6-10.3 [facility] Comment on above: Order Comment: Reaso n for Exam Hyperlipidemia;Pre-diabetes Reason for Exam Hyperlipidemia Reason for Exam Other fatigue Reason for Exam Hyperlipidemia;Other fatigue Performed By: #### T 4F, TSH3, CBC, CMP, A1C WTH eA, LIPID #### [facility] [address] [place] [id number] [place] Chloride [Moles/Vol] 107 mmol/L Normal 98-107 [facility] Comment on above: Order Comment: Reaso n for Exam Hyperlipidemia;Pre-diabetes Reason for Exam Hyperlipidemia Reason for Exam Other fatigue Reason for Exam Hyperlipidemia;Other fatigue Performed By: #### T 4F, TSH3, CBC, CMP, A1C WTH eA, LIPID #### [facility] [address] [place] [id number] [place] CO2 [Moles/Vol] 26.4 mmol/L Normal 21.0-31.0 [facility] Comment on above: Order Comment: Reaso n for Exam Hyperlipidemia;Pre-diabetes Reason for Exam Hyperlipidemia Reason for Exam Other fatigue Reason for Exam Hyperlipidemia;Other fatigue Performed By: #### T 4F, TSH3, CBC, CMP, A1C WTH eA, LIPID #### [facility] [address] [place] [id number] [facility] Creatinine [Mass/Vol] 0.62 mg/dL Normal 0.60-1.20 [facility] Comment on above: Order Comment: Reaso n for Exam Hyperlipidemia;Pre-diabetes Reason for Exam Hyperlipidemia Reason for Exam Other fatigue Reason for Exam Hyperlipidemia;Other fatigue Performed By: #### T 4F, TSH3, CBC, CMP, A1C WTH eA, LIPID #### [facility] [address] [place] [id number] [place] GFR/1.73 sq M.predicted MDRD (S/P/Bld) [Vol rate/Area] mL/min/{1.73_m2} Normal [facility] Comment on above: Order Comment: Reaso n for Exam Hyperlipidemia;Pre-diabetes Reason for Exam Hyperlipidemia Reason for Exam Other fatigue Reason for Exam Hyperlipidemia;Other fatigue Performed By: #### T 4F, TSH3, CBC, CMP, A1C WTH eA, LIPID #### [facility] [address] Globulin (S) [Mass/Vol] 2.6 g/dL Normal [facility] Comment on above: Order Comment: Reaso n for Exam Hyperlipidemia;Pre-diabetes Reason for Exam Hyperlipidemia Reason for Exam Other fatigue Reason for Exam Hyperlipidemia;Other fatigue Performed By: #### T 4F, TSH3, CBC, CMP, A1C WTH eA, LIPID #### [facility] [address] [place] [address] [place] Glucose [Mass/Vol] 84 mg/dL Normal 70-100 [facility] Comment on above: Order Comment: Reaso n for Exam Hyperlipidemia;Pre-diabetes Reason for Exam Hyperlipidemia Reason for Exam Other fatigue Reason for Exam Hyperlipidemia;Other fatigue Result Comment: [place] Glucose Reference Range is dependent on time and content of last meal. Glucose of more than 200 mg/dL in a nonstressed, ambulatory subject supports the diagnosis of Diabetes Mellitus. ADA recommended reference range Performed By: #### T 4F, TSH3, CBC, CMP, A1C WTH eA, LIPID #### [facility] [address] [place] [address] [place] Potassium [Moles/Vol] 4.1 mmol/L Normal 3.5-5.1 [facility] Comment on above: Order Comment: Reaso n for Exam Hyperlipidemia;Pre-diabetes Reason for Exam Hyperlipidemia Reason for Exam Other fatigue Reason for Exam Hyperlipidemia;Other fatigue Performed By: #### T 4F, TSH3, CBC, CMP, A1C WTH eA, LIPID #### [facility] [address] Protein [Mass/Vol] 6.9 g/dL Normal 6.4-8.9 [facility] Comment on above: Order Comment: Reaso n for Exam Hyperlipidemia;Pre-diabetes Reason for Exam Hyperlipidemia Reason for Exam Other fatigue Reason for Exam Hyperlipidemia;Other fatigue Performed By: #### T 4F, TSH3, CBC, CMP, A1C WTH eA, LIPID #### [facility] [address] Sodium [Moles/Vol] 140 mmol/L Normal 136-145 [facility] Comment on above: Order Comment: Reaso n for Exam Hyperlipidemia;Pre-diabetes Reason for Exam Hyperlipidemia Reason for Exam Other fatigue Reason for Exam Hyperlipidemia;Other fatigue Performed By: #### T 4F, TSH3, CBC, CMP, A1C WTH eA, LIPID #### [facility] [address] Urea nitrogen [Mass/Vol] 8 mg/dL Normal 7-25 The [facility] Comment on above: Order Comment: Reaso n for Exam Hyperlipidemia;Pre-diabetes Reason for Exam Hyperlipidemia Reason for Exam Other fatigue Reason for Exam Hyperlipidemia;Other fatigue Performed By: #### T 4F, TSH3, CBC, CMP, A1C WTH eA, LIPID #### [facility] [address] [place] [id number] [facility] Free T4 (Free Thyroxine)on 12-03-2022 Free T4 [Mass/Vol] 0.90 ng/dL Normal 0.61-1.12 The [facility] Comment on above: Order Comment: Reaso n for Exam Hyperlipidemia;Pre-diabetes Reason for Exam Hyperlipidemia Reason for Exam Other fatigue Reason for Exam Hyperlipidemia;Other fatigue Performed By: #### T 4F, TSH3, CBC, CMP, A1C WTH eA, LIPID #### [facility] [address] [place] [address] [place] Lipid Panelon 10-03-2023 Cholesterol [Mass/Vol] 238 mg/dL High 140-200 The [facility] Comment on above: Order Comment: Reaso n for Exam Hyperlipidemia;Pre-diabetes Reason for Exam Hyperlipidemia Reason for Exam Other fatigue Reason for Exam Hyperlipidemia;Other fatigue Result Comment: Chol less than 200 mg/dl low risk Chol 201-239 mg/dl borderline risk Chol 240 mg/dl and greater high risk Performed By: #### T 4F, TSH3, CBC, CMP, A1C WTH eA, LIPID #### [facility] [address] [place] [address] [facility] Cholesterol in HDL [Mass/Vol] 44 mg/dL Normal 23-92 The [facility] Comment on above: Order Comment: Reaso n for Exam Hyperlipidemia;Pre-diabetes Reason for Exam Hyperlipidemia Reason for Exam Other fatigue Reason for Exam Hyperlipidemia;Other fatigue Result Comment: HDL CHOL ATP-III CLASSIFICATION Cardiovascular Risk HDL > or equal to 60 mg/dL LOW HDL < 40 mg/dL HIGH Performed By: #### T 4F, TSH3, CBC, CMP, A1C WTH eA, LIPID #### [facility] [address] [place] [address] [facility] Cholesterol.total/C holesterol in HDL [Mass ratio] 5.4 {ratio} Normal <5.0 The [facility] Comment on above: Order Comment: Reaso n for Exam Hyperlipidemia;Pre-diabetes Reason for Exam Hyperlipidemia Reason for Exam Other fatigue Reason for Exam Hyperlipidemia;Other fatigue Performed By: #### T 4F, TSH3, CBC, CMP, A1C WTH eA, LIPID #### [facility] [address] [place] [address] [place] LDL Cholesterol,Calcula abdirashid 170 mg/dL High 0-100 The [facility] Comment on above: Order Comment: Reaso n for Exam Hyperlipidemia;Pre-diabetes Reason for Exam Hyperlipidemia Reason for Exam Other fatigue Reason for Exam Hyperlipidemia;Other fatigue Result Comment: LDL ATP III CLASSIFICATION LDL less than 100 mg/dL Optimal LDL 100-129 mg/dL Near or above optimal LDL 130-159 mg/dL Borderline high LDL 160-189 mg/dL High LDL greater than 189 mg/dL Very high Performed By: #### T 4F, TSH3, CBC, CMP, A1C WTH eA, LIPID #### [facility] [address] Triglyceride w/Reflex 122 mg/dL Normal 0-149 The [facility] Comment on above: Order Comment: Reaso n for Exam Hyperlipidemia;Pre-diabetes Reason for Exam Hyperlipidemia Reason for Exam Other fatigue Reason for Exam Hyperlipidemia;Other fatigue Result Comment: TRIG ATP III CLASSIFICATION TRIG less than 150 mg/dL Normal TRIG 150-199 mg/dL Borderline high TRIG 200-500 mg/dL High TRIG greater than 500 mg/dL Very high Standard traceable to the Center for Disease Conrtrol and Prevention (CDC) test method. Performed By: #### T 4F, TSH3, CBC, CMP, A1C WTH eA, LIPID #### [address] VLDL CHOLESTEROL 24 mg/dL Normal The [facility] Comment on above: Order Comment: Reaso n for Exam Hyperlipidemia;Pre-diabetes Reason for Exam Hyperlipidemia Reason for Exam Other fatigue Reason for Exam Hyperlipidemia;Other fatigue Performed By: #### T 4F, TSH3, CBC, CMP, A1C WTH eA, LIPID #### [address] Thyroid Stimulating Hormoneo n 10-03-2023 TSH Qn 1.79 m[IU]/L Normal 0.45-5.33 The [facility] Comment on above: Order Comment: Reaso n for Exam Hyperlipidemia;Pre-diabetes Reason for Exam Hyperlipidemia Reason for Exam Other fatigue Reason for Exam Hyperlipidemia;Other fatigue Result Comment: PERF ORMED BY: [place] [address] PATHOLOGIST BOBBIN INSPECTOR TRU DUNCAN M.D. Performed By: #### T 4F, TSH3, CBC, CMP, A1C WTH eA, LIPID #### [address] PAP ACOG PANEL 2: 30 to 65on 02-13-2022 . . Normal The [facility] Comment on above: Result Comment: Perf ormed at: WB Performed By: #### [id number] #### [facility] [address] [address] [address] Lakshmi Ha Age Gdln ACOG Testing 30-65 Normal [facility] Comment on above: Performed By: #### [id number] #### [facility] [address] [place] [address] Dr. Lakshmi Ha DIAGNOSIS: Comment Normal [facility] Comment on above: Result Comment: NEGA TIVE FOR INTRAEPITHELIAL LESION OR MALIGNANCY. Performed at: WB Performed By: #### [id number] #### [facility] [address] [address] [address] Lakshmi Ha HPV Aptima Negative Normal Negative [facility] Comment on above: Result Comment: This nucleic acid amplification test detects fourteen high-risk HPV types (16,18,31,33,35,39,45,51,52,56,58,59,66,68) without differentiation. Performed at: =G Performed By: #### [id number] #### [facility] [address] [place] [address] Dr. Lakshmi Ha Methodology: Comment Normal [facility] Comment on above: Result Comment: This liquid based ThinPrep(R) pap test was screened with the use of an image guided system. Performed at: WB Performed By: #### [id number] #### [facility] [address] [place] [address] Dr. Lakshmi Ha Note: Comment [facility] Comment on above: Result Comment: The Pap smear is a screening test designed to aid in the detection of premalignant and malignant conditions of the uterine cervix. It is not a diagnostic procedure and should not be used as the sole means of detecting cervical cancer. Both false-positive and false-negative reports do occur. . Performed at: WB Performed By: #### [id number] #### [facility] [address] [address] [address] Lakshmi Ha Performed by: Comment Normal [facility] Comment on above: Result Comment: Courtney Jacques, Toe Stapler (ASCP) Performed at: WB Performed By: #### [id number] #### [facility] [address] [place] [address] Dr. Lakshmi Ha Specimen adequacy: Comment Normal [facility] Comment on above: Result Comment: Sati sfactory for evaluation. Endocervical and/or squamous metaplastic cells (endocervical component) are present. Performed at: WB Performed By: #### [id number] #### [facility] [address] [place] [address] Dr. Lakshmi Ha Vital Signs Date Time Vital Sign Value Performing Clinician Facility 12-04-2023 14:30-0500 Body height 172.72 cm Souleymanesophia [facility] Other [facility] Other 12-04-2023 14:30-0500 Body mass index (BMI) [Ratio] 27.61 kg/m2 Souleymane [facility] Other [facility] Other 12-04-2023 14:30-0500 Body weight 82.37 kg Souleymanesophia [facility] Other [facility] Other 12-04-2023 14:30-0500 Diastolic blood pressure 54 mm[Hg] Souleymanesophia [facility] Other [facility] Other 12-04-2023 14:30-0500 Respiratory rate 18 /min Souleymane [facility] Other [facility] Other 12-04-2023 14:30-0500 SaO2% (BldA) [Mass fraction] 96 % Souleymane Hoang Other [facility] Other 12-04-2023 14:30-0500 Systolic blood pressure 91 mm[Hg] Souleymane Bolton Other [facility] Other 10-10-2023 14:15-0500 Body height 172.72 cm Tavon Rangel Other [facility] Other 10-10-2023 14:15-0500 Body mass index (BMI) [Ratio] 26.45 kg/m2 Tavon Rangel Other [facility] Other 10-10-2023 14:15-0500 Body weight 78.93 kg Tavon Rangel Other [facility] Other 10-10-2023 14:15-0500 Diastolic blood pressure 62 mm[Hg] Tavon Rangel Other [facility] Other 10-10-2023 14:15-0500 Respiratory rate 18 /min Tavon Rangel Other [facility] Other 10-10-2023 14:15-0500 SaO2% (BldA) [Mass fraction] 97 % Tavon Rangel Other [facility] Other 10-10-2023 14:15-0500 Systolic blood pressure 92 mm[Hg] Tavon Rangel Other [facility] Other 09-26-2023 14:45-0400 Body height 172.72 cm Souleymane [facility] Other [facility] Other 09-26-2023 14:45-0400 Body mass index (BMI) [Ratio] 26.91 kg/m2 Souleymane Hoang Other [facility] Other 09-26-2023 14:45-0400 Body weight 80.29 kg Souleymane Hoang Other [facility] Other 09-26-2023 14:45-0400 Diastolic blood pressure 59 mm[Hg] Souleymane Bolton Other [facility] Other 09-26-2023 14:45-0400 Respiratory rate 18 /min Souleymane Quiñonesff Other [facility] Other 09-26-2023 14:45-0400 SaO2% (BldA) [Mass fraction] 100 % Souleymanesophia [facility] Other [facility] Other 09-26-2023 14:45-0400 Systolic blood pressure 93 mm[Hg] Souleymanesophia [facility] Other [facility] Other 01-30-2023 16:30-0500 Body height 172.72 cm Souleymane Bolton Other [facility] Other 01-30-2023 16:30-0500 Body mass index (BMI) [Ratio] 31.18 kg/m2 Souleymane Bolton Other [facility] Other 01-30-2023 16:30-0500 Body weight 93.03 kg Souleymane [facility] Other [facility] Other 01-30-2023 16:30-0500 Diastolic blood pressure 66 mm[Hg] Souleymane [facility] Other [facility] Other 01-30-2023 16:30-0500 Respiratory rate 18 /min Souleymane [facility] Other [facility] Other 01-30-2023 16:30-0500 SaO2% (BldA) [Mass fraction] 96 % Souleymanesophia [facility] Other [facility] Other 01-30-2023 16:30-0500 Systolic blood pressure 95 mm[Hg] Souleymane Hoang Other [facility] Other 10-19-2022 10:45-0500 Body height 172.72 cm Souleymane Bolton Other [facility] Other 10-19-2022 10:45-0500 Body mass index (BMI) [Ratio] 31.93 kg/m2 Souleymane Bolton Other [facility] Other 10-19-2022 10:45-0500 Body weight 95.26 kg Souleymane Bolton Other [facility] Other 10-19-2022 10:45-0500 Diastolic blood pressure 67 mm[Hg] Souleymane Bolton Other [facility] Other 10-19-2022 10:45-0500 Respiratory rate 18 /min Souleymane Bolton Other [facility] Other 10-19-2022 10:45-0500 SaO2% (BldA) [Mass fraction] 99 % Souleymane Bolton Other [facility] Other 10-19-2022 10:45-0500 Systolic blood pressure 110 mm[Hg] Souleymane Bolton Other [facility] Other 09-07-2022 10:45-0400 Body height 172.72 cm Souleymane Bolton Other [facility] Other 09-07-2022 10:45-0400 Body mass index (BMI) [Ratio] 33.26 kg/m2 Souleymane [facility] Other [facility] Other 09-07-2022 10:45-0400 Body weight 99.25 kg Souleymane Bolton Other [facility] Other 09-07-2022 10:45-0400 Diastolic blood pressure 69 mm[Hg] Souleymane Bolton Other [facility] Other 09-07-2022 10:45-0400 Respiratory rate 18 /min Souleymane [facility] Other [facility] Other 09-07-2022 10:45-0400 SaO2% (BldA) [Mass fraction] 98 % Souleymane [facility] Other [facility] Other 09-07-2022 10:45-0400 Systolic blood pressure 109 mm[Hg] Souleymane [facility] Other [facility] Other 05-17-2022 13:30-0400 Body height 172.72 cm Tavon Rangel Other [facility] Other 05-17-2022 13:30-0400 Body mass index (BMI) [Ratio] 34.82 kg/m2 Tavon Rangel Other [facility] Other 05-17-2022 13:30-0400 Body weight 103.87 kg Tavon Rangel Other [facility] Other 05-17-2022 13:30-0400 Diastolic blood pressure 60 mm[Hg] Tavon Rangel Other [facility] Other 05-17-2022 13:30-0400 Respiratory rate 16 /min Tavon Rangel Other [facility] Other 05-17-2022 13:30-0400 SaO2% (BldA) [Mass fraction] 97 % Tavon Rangel Other [facility] Other 05-17-2022 13:30-0400 Systolic blood pressure 102 mm[Hg] Tavon Rangel Other [facility] Other 02-08-2022 12:30-0500 Body height 172.72 cm Tavon Rangel Other [facility] Other 02-08-2022 12:30-0500 Body mass index (BMI) [Ratio] 34.66 kg/m2 Tavon Rangel Other [facility] Other 02-08-2022 12:30-0500 Body weight 103.42 kg Tavon Rangel Other [facility] Other 02-08-2022 12:30-0500 Diastolic blood pressure 66 mm[Hg] Tavon Rangel Other [facility] Other 02-08-2022 12:30-0500 Respiratory rate 16 /min Tavon Rangel Other [facility] Other 02-08-2022 12:30-0500 SaO2% (BldA) [Mass fraction] 98 % Tavon Rangel Other [facility] Other 02-08-2022 12:30-0500 Systolic blood pressure 120 mm[Hg] Tavon Rangel Other [facility] Other Encounters Encounter Date Encounter Type Care Provider Facility Start: 04-07-2024 End: 04-07-2024 ambulatory Tavon Rangel Facility:[facility] Start: 03-23-2024 End: 03-23-2024 ambulatory JESSICA CEDILLO Facility:[facility] Start: 03-23-2024 End: 03-23-2024 Patient encounter procedure Jessica Cedillo PAChar Work Phone: Otolaryngology Comment on above: Dysfunction of both eustachian tubes (Primary Dx) Start: 03-11-2024 Telephone encounter Shun Skinner MD Work Phone: Otolaryngology Comment on above: Medication Problem Start: 12-17-2023 End: 12-17-2023 ambulatory Tavon Rangel Other [facility] Other Start: 12-17-2023 Telephone encounter Tavon Rangel [facility] Start: 12-10-2023 End: 12-10-2023 ambulatory Tavon Rangel Other [facility] Other Start: 12-10-2023 Telephone encounter Tavon Rangel [facility] Start: 12-04-2023 End: 12-04-2023 ambulatory Tavon Rangel [facility] [employer] Other Start: 12-04-2023 Follow-up encounter Souleymane [facility]rinivasan [facility] Start: 11-27-2023 End: 11-27-2023 ambulatory Tavon Rangel Other [facility] Other Start: 11-27-2023 [address]phone encounter [address]avon Rangel [facility] Start: 11-05-2023 End: 11-05-2023 ambulatory Souleymane Botlon Other [facility] Other Start: 11-05-2023 Telephone encounter Souleymane srinivasan [facility] Start: 10-31-2023 End: 10-31-2023 ambulatory Tavon Rangel Other [facility] Other Start: 10-31-2023 Telephone encounter Tavon Rangel [facility] [place] Start: 10-23-2023 End: 10-23-2023 ambulatory Tavoncharity Rangel Facility:[facility] Start: 10-10-2023 End: 10-10-2023 ambulatory Tavon Rangel Other [facility] Other Start: 10-10-2023 Encounter for genera l adult medical examination without abnormal findings Tavon [facility] Start: 10-10-2023 Periodic preventive med est patient 18-39 yrs Tavon Rangel [facility] Start: 10-03-2023 End: 10-03-2023 ambulatory Tavon Garrickjose l Facility:[facility] Start: 09-26-2023 End: 09-26-2023 ambulatory Souleymane Bolton Other [facility] Other Start: 09-26-2023 Follow-up encounter Souleymane srinivasan [facility] Start: 09-19-2023 End: 09-19-2023 ambulatory Tavon Mccauleyjose l Other [facility] Other Start: 09-19-2023 Telephone encounter Tavon Rangel [facility] Start: 08-29-2023 End: 08-29-2023 ambulatory Tavon Garrickjose l Other [facility] Other Start: 08-29-2023 Telephone encounter Tavoncharity Rangel [facility] [place] Start: 08-21-2023 End: 08-21-2023 ambulatory Tavon Garrickjose l Other [facility] Other Start: 08-21-2023 Telephone encounter Tavoncharity Rangel [facility] [place] Start: 07-04-2023 End: 07-04-2023 ambulatory Tavon Mccauleyjose l Other [facility] Other Start: 07-04-2023 Telephone encounter Tavon Rangel [facility] [place] Start: 02-26-2023 End: 02-26-2023 ambulatory Tavon Rangel Other [facility] Other Start: 02-26-2023 Telephone encounter Tavon Rangel [facility] [place] Start: 01-30-2023 End: 01-30-2023 ambulatory Souleymane Montenegrodiff Other [facility] Other Start: 01-30-2023 Follow-up encounter Souleymane srinivasan [facility] Start: 10-19-2022 End: 10-19-2022 ambulatory Souleymane Bolton Other [facility] Other Start: 10-19-2022 Follow-up encounter Souleymane srinivasan [facility] Start: 09-17-2022 End: 09-17-2022 ambulatory Tavon Rangel Other [facility] Other Start: 09-17-2022 Telephone encounter Tavon Rangel [facility] [place] Start: 09-07-2022 End: 09-07-2022 ambulatory Souleymane Montenegrodiff Other [facility] Other Start: 09-07-2022 Follow-up encounter Souleymane Bolton Diana craig [facility] Start: 07-26-2022 End: 07-26-2022 ambulatory Souleymane Bolton Other [facility] Other Start: 07-26-2022 Telephone encounter Souleymane srinivasan [facility] Start: 07-18-2022 End: 07-18-2022 ambulatory Souleymane Bolton Other [facility] Other Start: 07-18-2022 Telephone encounter Souleymane Ortiz [facility] Start: 07-12-2022 End: 07-12-2022 ambulatory Tavon Rangel Other [facility] Other Start: 07-12-2022 Telephone encounter Tavon Rangel [facility] [place] Start: 05-17-2022 End: 05-17-2022 ambulatory Tavon Rangel Other [facility] Other Start: 05-17-2022 Office outpatient vi sit 25 minutes Tavon Rangel [facility] Start: 03-13-2022 End: 03-13-2022 ambulatory Tavon Rangel Other [facility] Other Start: 03-13-2022 Telephone encounter Tavon Rangel [facility] Start: 02-08-2022 End: 02-08-2022 ambulatory Tavon Rangel Other [facility] Other Start: 02-08-2022 Office outpatient vi sit 25 minutes Tavon Rangel [facility] Start: 02-06-2022 End: 02-06-[address] VANDANA LEONARD Facility: Start: 01-29-2022 End: 01-29-2022 ambulatory Tavon Rangel Other [facility] Other Start: 01-29-2022 Telephone encounter Tavon Rangel [facility] Start: 12-13-2021 End: 12-13-2021 ambulatory Tavon Rangel Other [facility] Other Start: 12-13-2021 Telephone encounter Tavon Rangel [facility] Primary Care Plan of Treatment Date Care Activity Detail Author Start: 08-02-2024 Influenza vaccination Influenz a Vaccine (Season Ended) [facility] Start: 12-02-2023 Behavioral Health Screening Behavioral Health Screening [facility] Start: 08-02-2023 Covid-19 Vaccine ( season) Covid-19 Vaccine ( season) [facility] Start: 08-02-2023 Covid-19 Vaccine ( season) Covid-19 Vaccine ( season) [facility] Start: 2017 Screening for malign ant neoplasm of cervix HPV Testing [facility] Start: 2008 Screening for malign ant neoplasm of cervix Pap Testing [facility] Start: 2006 Hepatitis B Vaccine (1 of 3 - 19+ 3-dose series) Hepatitis B Vaccine (1 of 3 - 19+ 3-dose series) [facility] Start: 2006 Urine microalbumin profile DTa P,Tdap,Td Vaccine (1 - Tdap) [facility] Start: 2005 Hepatitis C screening Hepatitis C Sc reening [facility] Start: 2005 HIV screening HIV Screening [facility] Immunizations Immunization Date Immunization Notes Care Provider Brenden melendez 10-10-2023 influenza, injectable, quadrivalent, contains preservative Tavon Rangel Other [facility] Other 10-12-2021 influenza, seasonal, injectable Tavon Rangel Other [facility] Other 09-29-2021 COVID-19 Vaccine Moderna - Documentation Purposes Only Tavon Rangel Other [facility] Other 08-31-2021 COVID-19 Vaccine Moderna - Documentation Purposes Only Tavon Rangel Other [facility] Other 10-20-2015 influenza, injectable, quadrivalent, contains preservative Tavon Rangel Other [facility] Other NEGATED: Highlighted row has not occurred!02-09-2020 influenza, seasonal, injectable Patient Objection Tavon Rangel Other [facility] Other Payers Date Payer Category Payer Unknown MERE ROSENBERG PPO [id number] 2023-Present [phone] [address] [place] [address] PPO [id number] 2022 Self-pay 1987 Unknown [id number] 1959 Unknown [id number] Unknown [id number] Unknown [id number] Unknown [id number] Unknown [id number] Social History Date Type Detail Facility Unknown if ever smoked [facility] [employer] Other Start: 03-23-2024 Sex Assigned At N [facility] [employer] Other Tobacco smoking status [facility] Tobacco smoking consumption unknown [facility] Start: 1987 Sex Assigned At Not on file C [facility] Start: 03-23-2024 History of Social function [facility] National Score (1-100), lower number is lower risk 41 [facility] Clinical Notes 07-10-2019 to 03-23-2024 Patient InstructionsJessica Cedillo PA-C - 03/23/2024 9:42 AM EDTTelephone Encounter - April Alvarez - 03/12/2024 3:27 PM EDTTelephone Encounter - Candida Foote RN - 03/11/2024 4:24 PM EDT Note Date & Type Note Facility 03-23-2024 Note HNO ID: [id number] Author: JESSICA CEDILLO PA-C Service: ? Author Type: Physician [employer] Type: Progress Notes Filed: 03/23/2024 10:05 Note Text: History of Present Illness Ms. JUSTINO KELLER is a 38 year old year old female presenting for: referred by No referring provider defined for this encounter. And is a patient of No primary care provider on file. To use this Smartlink, specify the provider ID whose address you want to display, e.g., .PROVADDR[1 (where 1 is the provider ID). Communication will be via the electronic record and letter. States that both ears have reduced hearing for around one month, sudden onset after an upper respiratory infection. She will experience a throbbing sensation in both ears at night, and some ringing during the day. She states that she has felt this sensation of muffled hearing and pressure gradually improving in both ears, and this morning she was able to pop her ears with valsalva for the first itme with further improvement. This has happened before in the past, but has never lasted this long. She was evaluated by PCP and Dr. Skinner in the past month, both noted bilateral middle ear effusion per patient. Otalgia: denies Otorrhea: denies Dizziness/Imbalance: denies Facial Numbness, Weakness or Tingling: denies Ear Surgery or Tube Placement: Reports a tube in the Left ear ~4-5 years ago from an outside ENT. Also two rounds in childhood. Medical History: ACTIVE PROBLEM LIST DERMATITIS , CONTACT Inguinal Hernia Without Mention of Obstruction Or Gangrene, Unilateral Or Unspecified, (Not Specified As Recurrent) Surgical History: No past surgical history on file. Allergies: ALLERGIES Allergen Reactions Morphine Hives Penicillins Rash Sulfa (Sulfonamide * Rash, Hives Medications: Current Outpatient Medications on File Prior to Visit Medication Sig tizanidine hcl(ZANAFLEX 4 MG TAB) Take one(1) tablet daily at bedtime acetaminophen(TYLENOL EXTRA STRENGTH 500 MG TAB) Take two(2) tablets every four(4) to six(6) hours as needed. oxycodone-acetaminophen (PERCOCET) 5-325 mg ORAL Tab as needed/ not every day Etonogestrel-Ethinyl Estradiol (NUVARING) 0.12-0.015 mg/24 hr VAGINAL Ring as directed No current facility-administered medications on file prior to visit. Social History: No family history on file. Review of Systems: Positive: As above Negative: Fever, shortness of breath Objective: Last menstrual period 03/11/2007. Appearance: Well appearing, alert, in no acute distress, well-hydrated, well nourished. Communication: Able to speak and communicates clearly Head/Face: normocephalic, no masses, lesions, tenderness or abnormalities Facial nerve: Normal 1/6 bilaterally Skin: no skin lesions or scarring on face Ophthalmic: Full ocular motility intact; pupils symmetric Ears: AD EAC clear. TM intact, slightly retracted. Middle ear aerated. EAC clear. TM intact, slightly retracted with dimeric area anteroinferior consistent with previous PE tube placement. Middle ear aerated. Jeremías Angela AD [phone] Center AC>BC AC>BC 1024 Nose: external exam with straight profile Oropharynx: Uvula hangs midline; mucosa is pink and moist; tonsils present Neck: No cervical or supraclavicular lymphadenopathy Neuro/Psych.: Alert and oriented - no nystagmus Cranial nervesIII, IV, : EOM normal VII: Normal strength in all divisions IX, X: Normal voice, platal elevation and sensation XII: Tongue mobility normal Gait: normal for age Eye movements: full in all gaze positions, no nystagmus Assessment: H69.93 Dysfunction of both eustachian tubes (primary encounter diagnosis) Plan: Prescribed medrol dose pack, and instructed patient to continue flonase BID until symptoms resolve Instructed patient to reach out to me in 1 month if she continues to experience ear pressure/muffling, we will obtain an audiogram at that time. Jessica Cedillo PA-C Otology Medical Decision Making: Problems: Moderate: New problem with uncertain prognosis Risk: Low: Low risk from testing/treatment Moderate: Drug management Medical Decision Making Level: 4 - Moderate [facility] 03-23-2024 Instructions Jessica Cedillo PA-C - 03/23/2024 9:55 AM EDT Take the medrol dose pack, stay on the flonase until you feel back to your baseline. If you get to 8 week aleah and you still feel symptoms then reach out, we will schedule a hearing test and then follow-up after documented in this encounter [facility] 03-23-2024 History of Presen t illness Narrative History of Present Illness Ms. JUSTINO KELLER is a 38 year old year old female presenting for: referred by No referring provider defined for this encounter. And is a patient of No primary care provider on file. To use this Smartlink, specify the provider ID whose address you want to display, e.g., .[email or web address][1 (where 1 is the provider ID). Communication will be via the electronic record and letter. States that both ears have reduced hearing for around one month, sudden onset after an upper respiratory infection. She will experience a throbbing sensation in both ears at night, and some ringing during the day. She states that she has felt this sensation of muffled hearing and pressure gradually improving in both ears, and this morning she was able to pop her ears with valsalva for the first itme with further improvement. This has happened before in the past, but has never lasted this long. She was evaluated by PCP and Dr. Skinner in the past month, both noted bilateral middle ear effusion per patient. Otalgia: denies Otorrhea: denies Dizziness/Imbalance: denies Facial Numbness, Weakness or Tingling: denies Ear Surgery or Tube Placement: Reports a tube in the Left ear ~4-5 years ago from an outside ENT. Also two rounds in childhood. Medical History: ACTIVE PROBLEM LIST DERMATITIS , CONTACT Inguinal Hernia Without Mention of Obstruction Or Gangrene, Unilateral Or Unspecified, (Not Specified As Recurrent) Surgical History: No past surgical history on file. Allergies: ALLERGIES Allergen Reactions Morphine Hives Penicillins Rash Sulfa (Sulfonamide * Rash, Hives Medications: Current Outpatient Medications on File Prior to Visit Medication Sig tizanidine hcl(ZANAFLEX 4 MG TAB) Take one(1) tablet daily at bedtime acetaminophen(TYLENOL EXTRA STRENGTH 500 MG TAB) Take two(2) tablets every four(4) to six(6) hours as needed. oxycodone-acetaminophen (PERCOCET) 5-325 mg ORAL Tab as needed/ not every day Etonogestrel-Ethinyl Estradiol (NUVARING) 0.12-0.015 mg/24 hr VAGINAL Ring as directed No current facility-administered medications on file prior to visit. Social History: No family history on file. Review of Systems: Positive: As above Negative: Fever, shortness of breath Objective: Last menstrual period 03/11/2007. Appearance: Well appearing, alert, in no acute distress, well-hydrated, well nourished. Communication: Able to speak and communicates clearly Head/Face: normocephalic, no masses, lesions, tenderness or abnormalities Facial nerve: Normal 1/6 bilaterally Skin: no skin lesions or scarring on face Ophthalmic: Full ocular motility intact; pupils symmetric Ears: AD EAC clear. TM intact, slightly retracted. Middle ear aerated. EAC clear. TM intact, slightly retracted with dimeric area anteroinferior consistent with previous PE tube placement. Middle ear aerated. Rinne Angela AD [phone] Center AC>BC AC>BC 1024 Nose: external exam with straight profile Oropharynx: Uvula hangs midline; mucosa is pink and moist; tonsils present Neck: No cervical or supraclavicular lymphadenopathy Neuro/Psych.: Alert and oriented - no nystagmus Cranial nervesIII, IV, : EOM normal VII: Normal strength in all divisions IX, X: Normal voice, platal elevation and sensation XII: Tongue mobility normal Gait: normal for age Eye movements: full in all gaze positions, no nystagmus Assessment: H69.93 Dysfunction of both eustachian tubes (primary encounter diagnosis) Plan: Prescribed medrol dose pack, and instructed patient to continue flonase BID until symptoms resolve Instructed patient to reach out to me in 1 month if she continues to experience ear pressure/muffling, we will obtain an audiogram at that time. Jessica Cedillo PA-C Otology Medical Decision Making: Problems: Moderate: New problem with uncertain prognosis Risk: Low: Low risk from testing/treatment Moderate: Drug management Medical Decision Making Level: 4 - Moderate documented in this encounter [facility] 03-12-2024 Miscellaneous Notes Patient called back and said the pharmacy has yet received the prescription for the medication. She would like a call back with an update. April Alvarez Called and updated provider Called patient and she said that Dr. Skinner saw her yesterday when she came for an appointment with her mom. She states that Dr. Skinner was going to send in antibiotic ear drops until she could see Jessica the PA later in the month. Would you be able to assist in filling the ear drops? Person Calling: Patient Reason for Call: Patient calked and stated that she seen Dr. Skinner with her mom yesterday, and a prescription was supposed to be put in for an antibiotic and another medication for infected ears. Pt Phone #: [phone] Pharmacy Name and # : [facility]/ [phone] Pt last seen: Visit date not found April Alvarez documented in this encounter [facility] 12-04-2023 Evaluation note Encounter Date Diagnosis Assessment Notes Dec, Prediabetes (ICD-10 - R73.03) Dec, Overweight (BMI 25.0-29.9) (ICD-10 - E66.3) Dec, Mixed hyperlipidemia (ICD-10 - E78.2) Dec, Tobacco abuse (ICD-10 - Z72.0) Dec, GERD (gastroesophageal reflux disease) (ICD-10 - K21.9) Dec, Migraine (ICD-10 - G43.909) Dec, Medication monitoring encounter (ICD-10 - Z51.81) Dec, Metabolic syndrome X (ICD-10 - E88.81) [facility] Other 12-05-2023 Evaluation note* Encounter Date Diagnosis Assessment Notes Treatment Notes Treatment Clinical Notes Nov, Encounter for smoking cessation counseling (ICD-10 - Z71.6) [facility] Other 11-09-2023 Evaluation note* Encounter Date Diagnosis Assessment Notes Treatment Notes Treatment Clinical Notes Oct, Hyperlipidemia (ICD-10 - E78.5) Review of blood work which revealed no signs of anemia, leukemia, or infection. Liver, kidney, and thyroid function is normal, as well as electrolytes and blood sugar. Her cholesterol has increased somewhat, and pt admits to stopping the atorvastatin because she was losing weight and thought she didn't need this anymore. She did resume this once she saw her elevated cholesterol. I encouraged her to continue with this, and to monitor her diet and increase exercise as tolerated. Oct, Migraine (ICD-10 - G43.909) Pt states her migraines and headaches have been horrible. I did recommend she try Aleve and sumatriptan when she feels a headache coming on. She voices understanding. We will continue to monitor. Oct, Hypotension, unspecified hypotension type (ICD-10 - I95.9) Pt encouraged to increase fluids. Monitor BP and call if she continues to have symptoms. Oct, Wellness examination (ICD-10 - Z00.00) Personalized health advice was given to the beneficiary to health education of preventative counseling services or programs aimed at reducing identified risk factors and improving self-management or community-based lifestyle interventions to reduce health risks and promote self-management and wellness, including physical activity and nutrition. A written plan for screenings was discussed, flu vaccination, routine lab studies, eye exams, as well as risk factors for other medical problems. Oct, Prediabetes (ICD-10 - R73.03) Pt reports she is doing well on the above medication and is happy with her current weight. Her A1C has improved and is only slightly elevated currently. Pt is to continue with the above medication and continue watching their diet and increase their exercise regimen. Oct, Encounter for smoking cessation counseling (ICD-10 - Z71.6) Pt is to continue the above medication. Oct, Chronic fatigue (ICD-10 - R53.82) Labs ordered, encouraged her to have these done and she can call for results. Oct, Flu vaccine need (ICD-10 - Z23) [facility] Other 10-26-2023 Evaluation note* Encounter Date Diagnosis Assessment Notes Treatment Notes Treatment Clinical Notes Sep, Prediabetes (ICD-10 - R73.03) Sep, Obesity (BMI 30.0-34.9) (ICD-10 - E66.9) Sep, Mixed hyperlipidemia (ICD-10 - E78.2) Sep, Tobacco abuse (ICD-1 0 - Z72.0) Sep, GERD (gastroesophageal reflux disease) (ICD-10 - K21.9) Sep, Migraine (ICD-10 - G43.909) Sep, Medication monitorin g encounter (ICD-10 - Z51.81) Sep, Insomnia (ICD-10 - G47.00) Sep, Metabolic syndrome X (ICD-10 - E88.81) Sep, Overweight (BMI 25.0-29.9) (ICD-10 - E66.3) [facility] Other 10-19-2023 Evaluation note* Encounter Date Diagnosis Assessment Notes Treatment Notes Treatment Clinical Notes Sep, Migraine (ICD-10 - G43.909) [facility] Other 09-28-2023 Evaluation note* Encounter Date Diagnosis Assessment Notes Treatment Notes Treatment Clinical Notes Aug, Bilateral acute otitis media (ICD-10 - H66.93) [facility] Other 09-20-2023 Evaluation note* Encounter Date Diagnosis Assessment Notes Treatment Notes Treatment Clinical Notes Aug, Hyperlipidemia (ICD-10 - E78.5) Aug, Pre-diabetes (ICD-10 - R73.09) Aug, Other fatigue (ICD-1 0 - R53.83) [facility] Other 08-03-2023 Evaluation note* Encounter Date Diagnosis Assessment Notes Treatment Notes Treatment Clinical Notes Jul, Cervical pain (neck) (ICD-10 - M54.2) Jul, Migraine (ICD-10 - G43.909) [facility] Other 03-28-2023 Evaluation note* Encounter Date Diagnosis Assessment Notes Treatment Notes Treatment Clinical Notes Jan, Migraine (ICD-10 - G43.909) Jan, Insomnia (ICD-10 - G47.00) [facility] Other 03-01-2023 Evaluation note* Encounter Date Diagnosis Assessment Notes Treatment Notes Treatment Clinical Notes Jan, Prediabetes (ICD-10 - R73.03) Jan, Obesity (BMI 30.0-34.9) (ICD-10 - E66.9) Jan, GERD (gastroesophageal reflux disease) (ICD-10 - K21.9) Jan, Mixed hyperlipidemia (ICD-10 - E78.2) Jan, Nausea (ICD-10 - R11.0) Jan, Migraine (ICD-10 - G43.909) Jan, Medication monitorin g encounter (ICD-10 - Z51.81) Jan, Insomnia (ICD-10 - G47.00) Jan, Metabolic syndrome X (ICD-10 - E88.81) Jan, Tobacco abuse (ICD-1 0 - Z72.0) [facility] Other 11-18-2022 Evaluation note* Encounter Date Diagnosis Assessment Notes Treatment Notes Treatment Clinical Notes Oct, Prediabetes (ICD-10 - R73.03) Oct, Obesity (BMI 30.0-34.9) (ICD-10 - E66.9) Oct, GERD (gastroesophageal reflux disease) (ICD-10 - K21.9) Oct, Constipation (ICD-10 - K59.00) Oct, Mixed hyperlipidemia (ICD-10 - E78.2) Oct, Nausea (ICD-10 - R11.0) Oct, Migraine (ICD-10 - G43.909) Oct, Medication monitorin g encounter (ICD-10 - Z51.81) Oct, Insomnia (ICD-10 - G47.00) Oct, Metabolic syndrome X (ICD-10 - E88.81) Oct, Tobacco abuse (ICD-1 0 - Z72.0) [facility] Other 10-17-2022 Evaluation note* Encounter Date Diagnosis Assessment Notes Treatment Notes Treatment Clinical Notes Sep, Migraine (ICD-10 - G43.909) [facility] Other 10-07-2022 Evaluation note* Encounter Date Diagnosis Assessment Notes Treatment Notes Treatment Clinical Notes Sep, Prediabetes (ICD-10 - R73.03) Sep, Obesity (BMI 30.0-34.9) (ICD-10 - E66.9) Sep, Mixed hyperlipidemia (ICD-10 - E78.2) Sep, Constipation (ICD-10 - K59.00) Sep, GERD (gastroesophageal reflux disease) (ICD-10 - K21.9) Sep, Migraine (ICD-10 - G43.909) Sep, Medication monitorin g encounter (ICD-10 - Z51.81) Sep, Insomnia (ICD-10 - G47.00) Sep, Metabolic syndrome X (ICD-10 - E88.81) Sep, Tobacco abuse (ICD-1 0 - Z72.0) [facility] Other 08-11-2022 Evaluation note* Encounter Date Diagnosis Assessment Notes Treatment Notes Treatment Clinical Notes Jul, Hyperlipidemia (ICD-10 - E78.5) Jul, Cervical pain (neck) (ICD-10 - M54.2) [facility] Other 06-16-2022 Evaluation note* Encounter Date Diagnosis Assessment Notes Treatment Notes Treatment Clinical Notes May, Hyperlipidemia (ICD-10 - E78.5) Review of blood work with the patient, cholesterol is May, Hyperglycemia (ICD-10 - R73.9) Review of blood work with the patient, A1C has remained unchanged at 5.9% when compared to 01/2022 readings. She has been borderline elevated for quite some time. Discussion was had that starting metformin may be beneficial which she is in agreement as she tolerated this very well when taking this for family planning years ago. Patient is agreeable. All questions, concerns, positive, and negative effects reviewed. Medication e-scribed. We will continue to monitor. May, Insomnia (ICD-10 - G47.00) The above medication works well to manage her sleep habits. Refill e-scribed. May, Migraine (ICD-10 - G43.909) Patient admits the above medication works well to manage her migraines therefore she is to continue on this as directed. Refill e-scribed. May, BMI 34.0-34.9,adult (ICD-10 - Z68.34) Patient does voice interest in assitance with weight loss, I did offer a referral to Dr. Bolton who can help with dietary or medication recommendations to help her. Patient is agreeable. Referral initiated. [facility] Other 04-12-2022 Evaluation note* Encounter Date Diagnosis Assessment Notes Treatment Notes Treatment Clinical Notes Mar, Migraine (ICD-10 - G43.909) [facility] Other 03-10-2022 Evaluation note* Encounter Date Diagnosis Assessment Notes Treatment Notes Treatment Clinical Notes Jan, Hyperlipidemia (ICD-10 - E78.5) Reviewed lab work with patient, cholesterol has improved since started the Lipitor. Patient was initially put on Crestor for treatment but unable to take this due to severe headaches. Patient is to continue on the above medication as prescribed. Patient is to monitor diet and increase exercise. We will recheck labs in 3 months, if results continue to be consistent, we will increase the lipitor. Jan, Hyperglycemia (ICD-1 0 - R73.9) Reviewed lab work with patient, fasting glucose elevated. A1C resulted at 5.9. Patient is to monitor diet and increase exercise as tolerated. Jan, Migraine (ICD-10 - G43.909) Discussion had regarding patients migraine treatment. Patient states that she has not experienced a full blown migraine since starting the Em[employer]. Patient is to continue as prescribed. Jan, Ear pain, left (ICD-10 - H92.02) Patients left ear feels full along with a popping sensation. Upon examination, ear is clear. Jan, Sinusitis (ICD-10 - J32.9) Patient complains of sinus drainage with ear fullness. Patients labs do indicate some type of infection. Above medication prescribed. Jan, Elevated white blood cell count (ICD-10 - D72.829) 10 Jan, 2022 Fatigue (ICD-10 - R53.83) [facility] Other 02-28-2022 Evaluation note* Encounter Date Diagnosis Assessment Notes Treatment Notes Treatment Clinical Notes Jan, Hyperlipidemia (ICD-10 - E78.5) [facility] Other 01-12-2022 Evaluation note* Encounter Date Diagnosis Assessment Notes Treatment Notes Treatment Clinical Notes Dec, Hyperlipidemia (ICD-10 - E78.5) [facility] Other 08-09-2019 History general Narrative - Reported* Type Description Date Medical History migraine Medical History 07/10/2019 EKG Surgical History Thoracic Outlet Surgery 2006 Surgical History Hernia surgery rt groin 2006 Hospitalization History see surgical hx Hospitalization History child 2018 [facility] Other Evaluation noteNo InformationNort [employer] Other Evaluation note* Diagnosis Dysfunction of both eustachian tubes- Primary Dysfunction of Eustachian tube documented in this encounter [facility] Reason for Referral Reason 07/17/22 @ 2:30pm consult and treat Diagnosis 1 BMI 34.0-34.9,adult (Z68.34) Referral Organization [facility] [place] Referring Provider First Name Tavon Referring Provider Last Name Juan Carlos Referring Provider Specialty Family Prac mady Referred Organization [facility] Referred Provider Souleymane Bolton Referred Address [address] [place] [address],[facility],[place], [place],[address] Referred Provider Specialty Internal Med icine Referral Priority Routine Referral Appointment Date 2022-07-17 General Notes Gilda Miriam Lilly 022 02:28:37 PM >Received today and sent P2P Gilda Miriam 05/23/2022 12:35:02 PM >Patient has been scheduled Summary Purpose Family History No Family History Records FoundNo Family History Records FoundNo Family History Records Found Advance Directives No Advanced Directives Records FoundNo Advanced Directives Records FoundNo Advanced Directives Records Found Additional Source Comments REASON FOR VISIT (unrecogniz ed section and content) Reason Comments Medication Problem Reason Comments Ear Infection Bilateral ear infect ions x 1 month, bilateral ear fullness, throbbing Has taken 2 Z-Packs INFORMATION SOURCE (unrecogn ized section and content) DATE CREATED AUTHOR 12/12/2022 [facility] DATE CREATED AUTHOR AUTHOR'S ORGANIZ ATION 03/23/2024 [facility] DATE CREATED AUTHOR AUTHOR'S ORGANIZ ATION 05/02/2024 [facility] Source Comments (unrecognize d section and content) In the event this informatio n is protected by the Federal Confidentiality of Alcohol and Drug Abuse Patient Records regulations: The Federal rules restrict any use of the information to criminally investigate or prosecute any alcohol or drug abuse patient.[facility] the event this information is protected by the Federal Confidentiality of Alcohol and Drug Abuse Patient Records regulations: The Federal rules restrict any use of the information to criminally investigate or prosecute any alcohol or drug abuse patient.[facility] FOR RECORDS PERTAINING TO PATIENTS WHO ARE OR HAVE BEEN ENROLLED IN A CHEMICAL DEPENDENCY/SUBSTANCEABUSE PROGRAM, SOME INFORMATION MAY BE OMITTED. This clinical summary was aggregated from multiple sources. Caution should be exercised in using it in the provision of clinical care. This summary normalizes information from multiple sources, and as a consequence, information in this document may materially change the coding, format and clinical context of patient data. In addition, data may be omitted in some cases. CLINICAL DECISIONS SHOULD BE BASED ON THE PRIMARY CLINICAL RECORDS. [facility] [employer] [facility]. provides no warranty or guarantee of the accuracy or completeness of information in this document.
[2024-10-15 09:09] LABS: Age Gdln ACOG Testing Note (.); HPV Aptima Negative (Negative); IGP, Aptima HPV, rfx 16/18,45 Note (.)
== END 2024-10-06 20:50 | disposition home or self-care (01) ==
LOC: LAB 20:49
PROVIDERS: Visit Provider Obstetrics & Gynecology
DX: Z01.419 Encounter for gynecological examination (general) (routine) without abnormal findings (principal)
CPT/HCPCS: 87624; 88175

== ENCOUNTER 2024-12-08 08:36 | Outpatient (OUT) | payer OTHER, SELFPAY ==
[2024-12-08 08:50] LABS: Basophils Absolute Auto 0.1 10^3/uL (0.0-0.1); Basophils Percent Auto 0.8 % (0.2-2.0); Eosinophils Absolute Auto 0.3 10^3/uL (0.0-0.7); Eosinophils Percent Auto 3.5 % (0.9-7.0); Hematocrit 43.4 % (36.0-48.0); Hemoglobin 14.3 g/dL (12.0-16.0); Immature Granulocytes Abs Auto 0.02 10^3/uL (0.00-0.03); Immature Granulocytes Pct Auto 0.3 % (0.0-0.5); Lymphocytes Absolute Auto 1.8 10^3/uL (1.2-3.8); Mean Corpuscular HGB Conc 32.9 g/dL (29.9-35.2); Mean Corpuscular Hemoglobin 30.6 pg (26.7-34.0); Mean Corpuscular Volume 92.7 fL (81.0-99.0); Mean Platelet Volume 9.7 fL (9.5-13.5); Monocytes Absolute Auto 0.4 10^3/uL (0.3-0.8); Monocytes Percent Auto 6.2 % (1.7-12.0); Neutrophils Absolute Auto 4.5 10^3/uL (1.4-6.5); Neutrophils Percent Auto 63.2 % (43.0-75.0); Platelet Count 230 10^3/uL (150-450); Red Blood Count 4.68 10^6/uL (4.20-5.40); White Blood Count 7.1 10^3/uL (4.0-11.0)
[2024-12-08 09:17] LABS: INR 0.98; Partial Thromboplastin Time 26.2 sec (22.3-36.2); Prothrombin Time 10.4 sec (9.0-11.6)
[2024-12-08 09:23] LABS: Estimated Average Glucose 103 mg/dL; Glycohemoglobin A1C 5.2 % (4.5-6.2)
[2024-12-08 09:32] LABS: Thyroid Stimulating Hormone 0.566 uIU/mL (0.358-3.740)
[2024-12-08 09:34] LABS: HCG Quantitative <1 mIU/mL
[2024-12-08 09:46] LABS: Free T4 0.87 ng/dL (0.76-1.46)
== END 2024-12-08 08:37 | disposition home or self-care (01) ==
LOC: LAB 08:36
PROVIDERS: PCP Family Medicine; Visit Provider Obstetrics & Gynecology
DX: N92.0 Excessive and frequent menstruation with regular cycle (principal)
CPT/HCPCS: 36415; 83036; 84439; 84443; 84702; 85025; 85610; 85730

== ENCOUNTER 2024-12-23 15:39 | Outpatient (REF) | payer OTHER, SELFPAY ==
--- OUTSIDE RECORDS SUMMARY | 2025-01-04 16:02 | XMS_ITS | CCD ---
Author Organization [facility] Care Team Providers Care Senior Medical Director Name Role Phone Tavon Rangel Unavailable Souleymane Bolton Unavailable DR VANDANA ALCARAZ Admitting Unavailable KIERAN, DR ROSS Attending Unavailable DR VANDANA ALCARAZ Primary Care Unavailable KIERAN, DR ROSS Consulting Unavailable Unavailable Primary Care Provider UnavailJESSICA Wei Attending Unavailable Unavailable Primary Care Provider UnavailTavon Villarreal MD Primary Care Provider Vandana Alcaraz Attending Unavailable Vandana Alcaraz Admitting Unavailable Tavon Rangel Attending Unavailable Tavon Rangel Primary Care Unavailable Tavon Rangel Admitting Unavailable VANDANA ALCARAZ Attending Unavailable VANDANA ALCARAZ Referring Unavailable VANDANA ALCARAZ Attending Unavailable VANDANA ALCARAZ Attending Unavailable Allergies Allergy Classification Reported Allergen(s) Allergy Type Date of Onset Reaction(s) Facility (20 sources) Acetaminophen / HYDROcodone; Translations: [Vicodin] Drug Allergy 02-04-20 15 hives and vomiting [facility] Repository (20 sources) Morphine; Translations: [MORPHINE] Drug Allergy 03-28-20 07 Hives, Shortness of breath, Itching, Rash [facility] Work Phone: (20 sources) Penicillin Drug Allergy hives [facility] Other (20 sources) rosuvastatin Drug Allergy 12-13-19 22 Headache/nause a [facility] Other (20 sources) Sulfacetamide Drug Allergy hives [facility] Other (1 source) Morphine Drug Allergy 02-04-20 15 [facility] Repository (2 sources) Penicillins; Translations: [PENICILLINS] Drug allergy (disorder) 05-02-20 06 [facility] Repository (1 source) Sulfonamides (Antibiotic) Drug allergy (disorder) 02-04-20 15 [facility] Repository (1 source) Morphine Drug Allergy hives and can't breathe [facility] Other (2 sources) Penicillins Propensity to adverse reactions 05-02-20 06 Rash [facility] (13 sources) Sulfonamides (Antibiotic); Translations: [SULFA (SULFONAMIDE ANTIBIOTICS)] Propensity to adverse reactions 08-31-20 03 Rash, Hives, Itching [facility] Work Phone: (10 sources) HYDROcodone Drug Allergy 10-01-20 23 Rash [facility] Work Phone: (10 sources) Penicillin G Drug Allergy 10-01-20 23 Rash [facility] (9 sources) Acetaminophen / HYDROcodone Drug Allergy 10-06-20 [facility] (9 sources) Penicillins Drug Intolerance 05-02-20 06 Hives, Itching, Rash [facility] (1 source) Acetaminophen Drug Allergy 10-12-20 [facility] Repository (1 source) HYDROcodone Drug Allergy 10-12-20 [facility] Repository (1 source) Morphine Drug Allergy 10-12-20 [facility] Repository (1 source) Penicillins Drug allergy (disorder) 10-12-20 [facility] Repository (1 source) rosuvastatin Drug Allergy 10-12-20 [facility] Repository (1 source) Sulfacetamide Drug Allergy 10-12-20 [facility] Repository Medications Current Medications Medication Drug Class(es) [...] every day ALPRAZolam 1 mg oral tablet (9 sources) Benzodiazepine Start: 12-10-2023 End: 12-07-2024 ALPRAZolam (Xanax) 1 MG tablet 12/10/2023 12/07/2024 Discontinued atorvastatin 10 mg oral tablet (20 sources) HMG-CoA Reductase Inhibitor Start: 12-13-2021 take 1 tablet by mouth every twenty-fou r hours Atorvastatin Calcium 10 MG 1 tablet Orally Once a day Dec, Active take 1 tablet by mouth in the mo rning atorvastatin (Lipitor) 40 MG tablet Take 40 mg by mouth in the morning. Active azithromycin 250 mg oral tablet (6 sources) Macrolide Antimicrobial Start: 11-27-2023 Zithro max Z-Austin 250 MG as directed Orally as directed Nov, Active Start: 02-08-2022 take 2 tablets by mo [facility] once daily, then take 1 tablet by [...] a day for 7 days April, Active cephalexin 500 mg oral capsule (10 sources) Cephalosporin Antibacterial Start: 10-06-2024 End: 02-05-2025 take 1 capsule by mouth once daily cephalexin (Keflex) 500 MG capsule Indications: Boils Take 1 capsule (500 mg) by mouth Daily 60 capsule 1 12/07/2024 02/05/2025 Active cetirizine hydrochloride 10 mg oral tablet (9 sources) Histamine-1 Receptor Antagonist cetirizine (ZyrTEC) 10 MG tablet 1 (one) time each day at the same time Active Chantix Starting Month [place] 0.5 MG X 11 & 1 MG X 42 (3 sources) Chantix Starting Month [place] 0.5 MG X 11 & 1 MG X 42 as directed Orally As directed Active Chantix Starting Month [place] 0.5 MG X 11 & 1 MG X 42 as directed Orally As directed for 30 days Active clarithromycin 500 mg oral tablet (8 sources) Macrolide Antimicrobial Start: 03-13-2024 End: 12-07-2024 clarithromycin (Biaxin) 500 MG tablet 03/13/2024 12/07/2024 Discontinued Comment on above: Take 1 tablet by anton th two times a day for 7 days. cyclobenzaprine hydrochloride 10 mg oral tablet (20 sources) Muscle Relaxant Start: 02-19-2024 cyclobenzaprin e (Flexeril) 10 MG tablet 02/19/2024 Active Start: 02-06-2021 take 1 tablet by anton th three times daily as needed Cyclobenzaprine HCl 10 MG 1 tablet Orally tid prn for 30 days Jan, Active esomeprazole 40 mg delayed release oral capsule (7 sources) Proton Pump Inhibitor End: 12-07-2024 esomeprazole (NexIUM) [address] capsule 1 capsule 1 (one) time each day at the same time 12/07/2024 Discontinued 21 day ethinyl estradiol 0.323019 mg/hr / etonogestrel 0.005 mg/hr vaginal system (20 sources) Progestin, Estrogen Start: 11-27-2024 End: 12-07-2024 etonogestrel-ethinyl estradiol (Nuvaring) 0.12-0.015 MG/24HR vaginal ring Indications: Encounter for surveillance of vaginal ring hormonal contraceptive device INSERT 1 RING VAGINALLY FOR 21 DAYS, THEN REMOVE FOR 7 DAYS 3 each 3 11/27/2024 12/07/2024 Discontinued Start: 10-01-2023 End: 07-05-2026 etonogestrel-ethinyl estradi ol (Nuvaring) 0.12-0.015 MG/24HR vaginal ring Indications: Encounter for surveillance of vaginal ring hormonal contraceptive device Insert 1 Ring into the vagina every 28 (twenty-eight) days. Insert vaginally and leave in place for 21 consecutive days (3 weeks), then remove. Wait for 7 days before inserting new ring. 3 each 11 10/01/2023 07/05/2026 Active Start: 03-21-2007 Etonogestrel-E thinyl Estradiol (NUVARING) 0.12-0.015 mg/24 hr VAGINAL Ring as directed 0 03/21/2007 Active NuvaRing 0.12-0. 015 MG/24HR 1 ring Vaginal Active Comment on above: as directed Ethinyl Estradiol / Ferrous fumarate / Norethindrone (9 sources) Estrogen Start: 11-23-2024 End: 11-23-2025 norethindrone-ethinyl estradiol (12/21) 1-20 MG-MCG tablet Indications: Irregular periods/menstrual cycles Take 1 tablet by mouth Daily 28 tablet 11 11/23/2024 11/23/2025 Active Start: 10-06-2024 End: 10-06-2025 norethindrone-ethinyl estrad iol (12/21) 1-20 MG-MCG tablet Indications: Irregular periods/menstrual cycles Take 1 tablet by mouth Daily 28 tablet 11 10/06/2024 10/06/2025 Active 1 ml galcanezumab-gnlm 120 mg/ml auto-injector (20 sources) Start: 02-15-2020 inject 1 mL by subcutaneous injection every month Emgality 120 MG/ML 1 ml Subcutaneous monthly Jan, Active inject 120 mg by sub cutaneous injection once Emgality 120 MG/ML auto-injector Inject 120 mg under the skin 1 (one) time. Active inject 120 mg by sub cutaneous injection every month galcanezumab-gnlm (EMGALITY SYRINGE) 120 mg/mL syringe Inject 120 mg subcutaneously once every month. Do not shake. 0 Active ibuprofen 800 mg oral tablet (20 sources) Nonsteroidal Anti-inflammatory Drug Start: 07-28-2024 ibuprofen 800 MG tablet 07/28/2024 Active Start: 03-17-2020 take 1 tablet by anton th three times daily at mealtime as needed Ibuprofen 800 MG 1 tablet with food or milk as needed Orally Three times a day PRN Mar, Active levocetirizine dihydrochloride 5 mg oral tablet (9 sources) Histamine-1 Receptor Antagonist levocetirizine (Xyzal) 5 MG tablet 1 (one) time each day at the same time Active loratadine 10 mg oral tablet (9 sources) loratadine (Clar itin) 10 MG tablet 1 (one) time each day at the same time Active 24 hr metFORMIN hydrochloride 500 mg extended release oral tablet (13 sources) Biguanide Start: End: take 1 tablet by mouth every twenty-four hours at mealtime metFORMIN XR (Glucophage-XR) 500 MG 24 hr tablet Indications: Urinary tract infection without hematuria, site unspecified , Yeast infection Take 1 tablet (500 mg) by mouth in the evening. Take with meals Do not crush, chew, or split. 30 tablet 11 10/06/2024 10/06/2025 Active Start: 05-17-2022 take 1 tablet by anton every twelve hours metFORMIN HCl 500 MG 1 tablet with a meal Orally Twice a day for 30 day(s) May, Not-Taking methylPREDNISolone (1 source) Corticosteroid Start: 03-23-2024 methylPREDNISolone [...] 0.5 mg p.o. weekly for 30 Active Semaglutide (OZEMPIC, 0.25 OR 0.5 MG/DOSE, SC) (8 sources) End: 12-07-2024 inject 0.5 mg by subcutaneous injection every week Semaglutide (OZEMPIC, 0.25 OR 0.5 MG/DOSE, SC) Inject 1 mL under the skin 1 (one) time per week. 12/07/2024 Discontinued inject 0.5 mg by sub cutaneous injection every week Semaglutide (OZEMPIC, 0.25 OR 0.5 MG/DOSE, SC) Inject 1 mL under the skin 1 (one) time per week. Active SUMAtriptan 100 mg oral tablet (20 sources) Serotonin-1b and Serotonin-1d Receptor Agonist Start: 11-20-2017 take 1 tablet by mouth once daily as needed SUMAtriptan Succinate 100 mg 1 tablet Orally once a day as needed PRN Nov, Active varenicline 1 mg oral tablet (8 sources) Partial Cholinergic Nicotinic Agonist Start: 11-05-2023 End: 10-06-2024 take 1 tablet by mouth every twelve hours Varenicline Tartrate(Continue ) 1 MG 1 tablet Orally bid for 30 days Chantix Nov, Active zolpidem tartrate 10 mg oral tablet (20 sources) gamma-Aminobutyric Acid-ergic Agonist Start: 10-25-2021 take 1 tablet by mouth at bedtime as needed Zolpidem Tartrate 10 mg 1 tablet at bedtime as needed Orally at bedtime PRN Jan, Active zolpidem CR (Amb ien CR) 6.25 MG ER tablet Take 6.25 mg by mouth as needed at bedtime for sleep. Do not crush, chew, or split. Active Completed/Discontinued Medications Medication Drug Class(es) Dates Sig (Normalized) Sig (Original) famotidine 26.6 mg / ibuprofen 800 mg oral tablet (9 sources) Nonsteroidal Anti-inflammatory Drug, Histamine-2 Receptor Antagonist Start: 12-27-2020 take 1 tablet by mouth every eight hours Duexis 800-26.6 MG 1 tablet Orally Three times a day PRN Dec, Not-Taking fluconazole 150 mg oral tablet (2 sources) Azole Antifungal Start: 10-06-2024 End: 10-06-2024 fluconazole (Diflucan) 150 MG tablet Indications: Yeast infection Take 1 tablet (150 mg) by mouth 1 (one) time for 1 dose Repeat in 7 days if symptoms persist. 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 Contraceptive and procreative management (13 sources) Contraception ; Translations: [Encounter for surveillance of other contraceptives] Onset: 5 12-07-2024 Episodic Diseases of white blood cells (20 [...] sources) Fatigue; Translations: [Chronic fatigue, unspecified] Chronic Malaise and fatigue (2 sources) Other fatigue Onset: 2 Resolved: 2 Episodic Menstrual disorders (5 sources) Irregular periods; Translations: [Irregular menstruation, unspecified] 10-06-2024 Chronic Mycoses (2 sources) Mycosis; Translations: [Candidiasis, unspecified] 10-06-2024 Episodic Nausea and vomiting (2 sources) Nausea Episodic [...] signs involving the musculoskeletal system] Episodic Other female genital disorders (1 source) Abnormal uterine bleeding; Translations: [Abnormal uterine and vaginal bleeding, unspecified] 12-23-2024 Chronic Other female genital disorders (2 sources) Vaginal discharge; Translations: [Other specified noninflammatory disorders of vagina] 10-06-2024 Episodic Other gastrointestinal disorders (19 sources) Constipation; [...] codes; unclassified (5 sources) Tobacco use Episodic Skin and subcutaneous tissue infections (6 sources) Furuncle; Translations: [Furuncle, unspecified] Onset: 5 12-07-2024 Episodic Spondylosis; intervertebral disc disorders; other back problems (2 sources) Cervicalgia Onset: 2 Resolved: 2 Episodic Substance-related disorders (20 sources) Tobacco user; Translations: [Nicotine dependence, cigarettes, uncomplicated] Chronic Urinary tract infections (4 sources) Urinary tract infectious disease; Translations: [Urinary tract infection, site not specified] 10-06-2024 Episodic Past or Other Problems Problem Classification Problem Date Documented Da te Episodic/Chronic Abdominal hernia (2 sources) Inguinal hernia; Translations: [Unilateral inguinal hernia, without obstruction or gangrene, not specified as recurrent] Onset: 04-22-2007 04-22-2007 Episodic Allergic reactions (2 sources) Contact dermatitis; Translations: [Unspecified contact dermatitis due to other agents] Onset: 05-21-2006 05-21-2006 Episodic Diabetes mellitus without complication (20 sources) Hyperglycemia; Translations: [Hyperglycemia, unspecified] Onset: 02-08-2022 Resolved: 05-17-2022 Episodic Other ear and sense organ disorders (1 source) Otalgia, left ear Onset: 02-08-2022 Resolved: 02-08-2022 Episodic Other screening for suspected conditions (not mental disorders or infectious disease) (4 sources) Encounter for screening for malignant neoplasm of cervix; Translations: [ENC SCREENING MALIG NEOPLASM CERV] Onset: 02-06-2022 Episodic Results Test Name Value Interpretation Reference Range Facility HCG ( test) Ql (U)o n 12-23-2024 Interpretation and review of laboratory results Abnormal [facility] Preg Test, Ur Negative Negative [facility] ALL CBC WITH AUTO DIFFon BASOPHILS ABSOLUTE AUTO 0.1 [facility] Basophils/100 WBC (Bld) 0.8 % 0.2 - 2.0 % [facility] Eosinophils/100 WBC (Bld) 3.5 % 0.9 - 7.0 % [facility] Erythrocyte distribution width (RBC) [Ratio] 12 % 11.0 - 15.0 % [facility] Hematocrit (Bld) [Volume fraction] 43.4 % 36.0 - 48.0 % [facility] Hem[facility] (Bld) [Mass/Vol] 14.3 g/dL 12.0 - 16.0 g/dL [facility] IMMATURE GRANULOCYTES ABS AUTO 0.02 [facility] Immature granulocytes/100 WBC (Bld) 0.3 % 0.0 - 0.5 % [facility] LYMPHOCYTES ABSOLUTE AUTO 1.8 [facility] Lymphocytes/100 WBC (Bld) 26 % 20.5 - 60.0 % [facility] MCH (RBC) [Entitic mass] 30.6 pg 26.7 - 34.0 pg [facility] MCHC (RBC) [Mass/Vol] 32.9 g/dL 29.9 - 35.2 g/dL [facility] MCV (RBC) [Entitic vol] 92.7 fL 81.0 - 99.0 fL [facility] MONOCYTES ABSOLUTE AUTO 0.4 [facility] Monocytes/100 WBC (Bld) 6.2 % 1.7 - 12.0 % [facility] NEUTROPHILS ABSOLUTE AUTO 4.5 [facility] Neutrophils/100 WBC (Bld) 63.2 % 43.0 - 75.0 % [facility] Platelet mean volume (Bld) [Entitic vol] 9.7 fL 9.5 - 13.5 fL [facility] # [facility].3 [facility] PLT 230 [facility] TB RBC 4.68 [facility] WBC 7.1 [facility] US PELVIC COMPLETE W/ TVon 0 12-07-2024 US PELVIC COMPLETE W/ TV EXAM: US PELVIC COMPLETE W/ TV HISTORY: Menorrhagia, cramping. COMPARISON: None available. TECHNIQUE: Two-dimensional transabdominal grayscale ultrasound imaging of the pelvis was performed. Color flow Doppler imaging of the ovaries was also performed. Transvaginal was performed. FINDINGS: UTERUS 9.4 x 3.9 x 5.7 cm The uterus is anteverted in position and demonstrates a normal, homogeneous echotexture. Multiple nabothian cysts are visualized within the cervix. ENDOMETRIUM 0.4 cm The endometrium demonstrates a normal, homogeneous echotexture. RIGHT OVARY 3.5 x 1.7 x 1.8 cm The right ovary demonstrates a normal echotexture. There is normal color Doppler flow. There is a 1.5 cm follicle visualized. LEFT OVARY 4.2 x 2.3 x 3.0 cm The left ovary demonstrates a normal echotexture. There is normal color Doppler flow. There is a 2.8 cm dominant follicle visualized. No fluid is present within the cul-de-sac. IMPRESSION: 1. Unremarkable ultrasound of the pelvis. 2. Normal color Doppler flow within the bilateral ovaries. Electronically Signed:Electronically signed by ABDON FERMIN II, MD, PHD at 31-Dec-2024 08:44:02 AM [facility] Normal Not Available Comment on above: Order Comment: US PE LVIS-TRANSVAG IF INDICATED Patient's last menstrual period was 11/11/2024. IGP,APTIMA HPV,AGE GDLNon AGE GDLN ACOG TESTING Note . [facility] Comment on above: TESTS RESULT FLAG UN [facility] REF RANGE LAB Clinician Provided Cytology Information Source.............Cervix;Endocervix No. of containers..01 ThinPrep Vial Age Algo ACOG Mariely... FLAG LEGEND: L-Low Normal,H-High Normal,LL-Alert Low,HH-Alert High <-Panic Low,>-Panic High,A-Abnormal,AA-Critical Abnormal Performed at: 01 =[facility] [id number] Meg Slade MD, HPV APTIMA Negative Negative [facility] Comment on above: This nucleic acid am plification test detects fourteen high- risk HPV types (16,18,31,33,35,39,45,51,52,56,58,59,66,68) without differentiation. Performed at: =[facility] [id number] [place] Operator: Meg Slade MD, Phone: [phone] Performed at: - [facility] [id number] [place] Operator: Meg Slade MD, Phone: [phone] IGP, APTIMA HPV, RFX 16/18,45 Note . [facility] Comment on above: TESTS RESULT FLAG UN [facility] REF RANGE LAB DIAGNOSIS: 02 NEGATIVE FOR INTRAEPITHELIAL LESION OR MALIGNANCY. Specimen adequacy: 02 Satisfactory for evaluation. Endocervical and/or squamous metaplastic cells (endocervical component) are present. Performed by: 02 Mila Ferguson, Machine Overhauler ([facility]) . 02 Note: Note 02 The Pap smear is a screening test designed to aid in the detection of premalignant and malignant conditions of the uterine cervix. It is not a diagnostic procedure and should not be used as the sole means of detecting cervical cancer. Both false-positive and false-negative reports do occur. Test Methodology: Note 02 This liquid based ThinPrep(R) pap test was screened with the use of an image guided system. HPV Genotype Reflex Note 02 Criteria not met, HPV Genotype not performed. FLAG LEGEND: L-Low Normal,H-High Normal,LL-Alert Low,HH-Alert High <-Panic Low,>-Panic High,A-Abnormal,AA-Critical Abnormal Performed at: [address] [facility] [place] [address] Meg Slade MD, BRUSH-SPATULA CERVIX ENDOCERVIX [facility] RECURRENT VAGINITIS (HTRX)on 10-07-2024 ATOPOBIUM [facility]AGINAE 0 [facility] ATOP[facility]BI[facility] VAGINAE Not detected [facility] BVAB 2,3 (BACTERIAL VAGINOSIS ASSOCIATED BACTERIA 2, 3); MOBILUNCUS SPP 0 [facility] BVAB 2,3 (BACTERIAL VAGINOSIS ASSOCIATED BACTERIA 2, 3); MOBILUNCUS SPP Not detected [facility] MONTY ALBICANS, PARAPSILOSIS, TROPICALIS 0 [facility] Healthcare MONTY ALBICANS, PARAPSILOSIS, TROPICALIS Not detected [facility] Healthcare MONTY GLABRATA 0 [facility] MONTY GLABRATA Not detected [facility] MONTY KRUSEI 0 [facility] Healt hcare MONTY KRUSEI Not detected [facility] CHLAMYDIA TRACHOMATIS 0 [facility] CHLAMYDIA TRACHOMATIS Not detected [facility] GARDNERELLA VAGINALIS 24.749 Abnormal [facility] GARDNERELLA VAGINALIS Detected Abnormal [facility] Interpretation and review of laboratory results Abnormal [facility] MEGASPHAERA (TYPES 1, 2) 18.836 Abnormal [facility] MEGASPHAERA (TYPES 1, 2) Detected Abnormal [facility] MYCOPLASMA GENITALIUM 0 [facility] MYCOPLASMA GENITALIUM Not detected [facility] NEISSERIA GONORRHOEAE 0 [facility] NEISSERIA GONORRHOEAE Not detected [facility] TRICHOMONAS VAGINALIS 0 [facility] TRICHOMONAS VAGINALIS Not detected [facility] Urinalysis macro (dipstick) panel (U)on 10-06-2024 Bilirubin, UA Negative Negative - 4(70) +++ mg/dL [facility] Blood, UA Negative Negative - 50 Thomas/mcL [facility] Clarity, UA Clear [facility] re Color, UA Yellow [facility] Glucose, UA Negative Negative - 1999(110) ++++ mg/dL [facility] Interpretation and review of laboratory results Abnormal [facility] Ketones, UA Negative Negative - 160(16) ++++ mg/dL [facility] Leukocytes, UA Trace Negative - 500+++ Robert/mcL [facility] Nitrite, UA Negative Negative - Positive [facility] pH, UA 7 5 - 9 [facility] Protein, UA Negative Negative - 1999(20) ++++ mg/dL [facility] Spec Grav, UA 1.015 1 - 1.03 [facility] Urobilinogen, UA 0.2 0.2 - 12 mg/dL [facility] A1C with Estimated Average G shonda 04-07-2024 Glucose [Mass/Vol] 108 mg/dL Normal [facility] Comment on above: Order Comment: Reaso n for Exam Prediabetes Result Comment: PERF ORMED BY: [place] [id number] PATHOLOGIST OPTOMETRIST OWNER TRU DUNCAN M.D. Performed By: #### A 1C [facility] eA #### [address] HbA1c (Bld) [Mass fraction] 5.4 % Normal 4.3-5.6 [facility] Comment on above: Order Comment: Reaso n for Exam Prediabetes Result Comment: Incr eased risk for diabetes: 5.7 - 6.4 diabetes: >6.4 glycemic control for adults with diabetes: <7.0 Performed By: #### A 1C [facility] eA #### [address] Comprehensive Metabolic Pane tomi 04-07-2024 Albumin [Mass/Vol] 4.4 g/dL Normal 3.5-5.7 [facility] Comment on above: Order Comment: Reaso n for Exam Hyperlipidemia Performed By: #### C MP, LIPID #### [address] Albumin/Globulin [Mass ratio] 1.8 {ratio} Normal [facility] Comment on above: Order Comment: Reaso n for Exam Hyperlipidemia Performed By: #### C MP, LIPID #### [address] ALP [Catalytic activity/Vol] 38 U/L Normal 34-104 [facility] Comment on above: Order Comment: Reaso n for Exam Hyperlipidemia Performed By: #### C MP, LIPID #### [address] ALT [Catalytic activity/Vol] 11 U/L Normal 7-52 [facility] Comment on above: Order Comment: Reaso n for Exam Hyperlipidemia Performed By: #### C MP, LIPID #### [address] Anion gap [Moles/Vol] 12.0 mmol/L Normal 6.0-15.0 [facility] Comment on above: Order Comment: Reaso n for Exam Hyperlipidemia Performed By: #### C MP, LIPID #### [facility] [address] [place] [address] AST [Catalytic activity/Vol] 13 U/L Normal 13-39 [facility] Comment on above: Order Comment: Reaso n for Exam Hyperlipidemia Performed By: #### C MP, LIPID #### [facility] [address] Bilirubin [Mass/Vol] 0.4 mg/dL Normal 0.3-1.0 [facility] Comment on above: Order Comment: Reaso n for Exam Hyperlipidemia Performed By: #### C MP, LIPID #### [facility] [address] [place] [address] [place] Calcium [Mass/Vol] 9.3 mg/dL Normal 8.6-10.3 [facility] Comment on above: Order Comment: Reaso n for Exam Hyperlipidemia Performed By: #### C MP, LIPID #### [facility] [address] [place] [address] [place] Chloride [Moles/Vol] 108 mmol/L High 98-107 [facility] Comment on above: Order Comment: Reaso n for Exam Hyperlipidemia Performed By: #### C MP, LIPID #### [place] [address] [place] CO2 [Moles/Vol] 25.3 mmol/L Normal 21.0-31.0 [facility] Comment on above: Order Comment: Reaso n for Exam Hyperlipidemia Performed By: #### C MP, LIPID #### [facility] [address] [place] [address] [place] Creatinine [Mass/Vol] 0.66 mg/dL Normal 0.60-1.20 [facility] Comment on above: Order Comment: Reaso n for Exam Hyperlipidemia Performed By: #### C MP, LIPID #### [facility] [address] [place] [address] [place] GFR/1.73 sq M.predicted MDRD (S/P/Bld) [Vol rate/Area] mL/min/{1.73_m2} Normal [facility] Comment on above: Order Comment: Reaso n for Exam Hyperlipidemia Performed By: #### C MP, LIPID #### [facility] [address] [place] [address] [place] Globulin (S) [Mass/Vol] 2.5 g/dL Normal [facility] Comment on above: Order Comment: Reaso n for Exam Hyperlipidemia Performed By: #### C MP, LIPID #### [facility] [address] [id number] [place] Glucose [Mass/Vol] 97 mg/dL Normal 70-100 [facility] Comment on above: Order Comment: Reaso n for Exam Hyperlipidemia Result Comment: [facility] Glucose Reference Range is dependent on time and content of last meal. Glucose of more than 200 mg/dL in a nonstressed, ambulatory subject supports the diagnosis of Diabetes Mellitus. ADA recommended reference range Performed By: #### C MP, LIPID #### [facility] [address] [place] [address] [place] Potassium [Moles/Vol] 4.3 mmol/L Normal 3.5-5.1 [facility] Comment on above: Order Comment: Reaso n for Exam Hyperlipidemia Performed By: #### C MP, LIPID #### [facility] [address] [id number] [place] Protein [Mass/Vol] 6.9 g/dL Normal 6.4-8.9 [facility] Comment on above: Order Comment: Reaso n for Exam Hyperlipidemia Performed By: #### C MP, LIPID #### [facility] [address] [id number] [place] Sodium [Moles/Vol] 141 mmol/L Normal 136-145 [facility] Comment on above: Order Comment: Reaso n for Exam Hyperlipidemia Performed By: #### C MP, LIPID #### [facility] [address] [id number] [place] Urea nitrogen [Mass/Vol] 16 mg/dL Normal 7-25 [facility] Comment on above: Order Comment: Reaso n for Exam Hyperlipidemia Performed By: #### C MP, LIPID #### [facility] [address] [id number] [facility] Lipid Panelon 04-07-2024 Cholesterol [Mass/Vol] 166 mg/dL Normal 140-200 [facility] Comment on above: Order Comment: Reaso n for Exam Hyperlipidemia Result Comment: Chol less than 200 mg/dl low risk Chol 201-239 mg/dl borderline risk Chol 240 mg/dl and greater high risk Performed By: #### C MP, LIPID #### [facility] [address] Cholesterol in HDL [Mass/Vol] 59 mg/dL Normal 23-92 [facility] Comment on above: Order Comment: Reaso n for Exam Hyperlipidemia Result Comment: HDL CHOL ATP-III CLASSIFICATION Cardiovascular Risk HDL > or equal to 60 mg/dL LOW HDL < 40 mg/dL HIGH Performed By: #### C MP, LIPID #### [facility] [address] Cholesterol.total/Ch olesterol in HDL [Mass ratio] 2.8 {ratio} Normal <5.0 [facility] Comment on above: Order Comment: Reaso n for Exam Hyperlipidemia Result Comment: PERF ORMED BY: [place] [address] PATHOLOGIST [employer] OWNER TRU DUNCAN M.D. Performed By: #### C MP, LIPID #### [facility] [address] LDL Cholesterol,Calculat ed 95 mg/dL Normal 0-100 [facility] Comment on above: Order Comment: Reaso n for Exam Hyperlipidemia Result Comment: LDL ATP III CLASSIFICATION LDL less than 100 mg/dL Optimal LDL 100-129 mg/dL Near or above optimal LDL 130-159 mg/dL Borderline high LDL 160-189 mg/dL High LDL greater than 189 mg/dL Very high Performed By: #### C MP, LIPID #### [facility] [address] [id number] [place] Triglyceride w/Reflex 59 mg/dL Normal 0-149 [facility] Comment on above: Order Comment: Reaso n for Exam Hyperlipidemia Result Comment: TRIG ATP III CLASSIFICATION TRIG less than 150 mg/dL Normal TRIG 150-199 mg/dL Borderline high TRIG 200-500 mg/dL High TRIG greater than 500 mg/dL Very high Standard traceable to the Center for Disease Conrtrol and Prevention (CDC) test method. Performed By: #### C MP, LIPID #### [facility] [address] [id number] [facility] VLDL CHOLESTEROL 11 mg/dL Normal [facility] Comment on above: Order Comment: Kaleb benoit for Exam Hyperlipidemia Performed By: #### C MP, LIPID #### [facility] [address] [place] [address] [facility] CNOVon 03-23-2024 CNOV Office Visit (OTOLCR ) JUSTINO KELLER ([id number]) 1985 F Date Time Provider Department 03/23/24 [...] whose address you want to display, e.g., .VoltaireADDR[1 (where 1 is the provider ID). Communication [...] every four(4) to six(6) hours as needed. oxycodone-acetaminoph en (PERCOCET) 5-325 mg ORAL Tab as needed/ [...] ear infec (more content not included)... [facility] JUST[facility] MONTGOMERY ([id number]) 1985 F Date Time Provider Department 03/11/24 [...] medication for infected ears. Pt Phone #: [phone] Pharmacy Name and # : [facility] [phone] Pt last seen: Visit date not found [...] Reviewed Reason for Visit: Medication Problem [65] Order(s):clarithromyc in (BIAXIN) 500 mgTake 1 tablet by mouth [...] four(4) to six(6) hours as needed. - oxycodone-acetaminoph en (PERCOCET) 5-325 mg ORAL Tab as needed/ [...] day for 7 days. Encounter Status:Closed by ASHLEY, BRUCE on 03/13/[address] [facility] Cytology Cervical or vaginal smear or scraping [facility]on [facility]-01[facility]2023 [facility] A[facility]G PANEL 2: 30 to 65on 02-13-2022 . . Normal [facility] Comment on above: Result Comment: Perf ormed at: WB Performed By: #### [id number] #### [facility] [address] [address] [address] Lakshmi Ha Age Gdln ACOG Testing 30-65 [facility] Comment on above: Performed By: #### [id number] #### [facility] [address] [address] [address] Lakshmi Ha DIAGNOSIS: Comment Normal [facility] Comment on above: Result Comment: NEGA TIVE FOR INTRAEPITHELIAL LESION OR MALIGNANCY. Performed at: WB Performed By: #### [id number] #### [facility] [address] [address] [address] Lakshmi Ha HPV Aptima Negative Normal Negative [facility] Comment on above: Result Comment: This nucleic acid amplification test detects fourteen high-risk HPV types (16,18,31,33,35,39,45,51,52,56,58,59,66,68) without differentiation. Performed at: =G Performed By: #### [id number] #### [facility] [address] [address] [address] Lakshmi Ha Methodology: Comment Normal [facility] Comment on above: Result Comment: This liquid based ThinPrep(R) pap test was screened with the use of an image guided system. Performed at: WB Performed By: #### [id number] #### [facility] [address] [address] [address] Lakshmi Ha Note: Comment Normal [facility] Comment on above: Result Comment: The Pap smear is a screening test designed to aid in the detection of premalignant and malignant conditions of the uterine cervix. It is not a diagnostic procedure and should not be used as the sole means of detecting cervical cancer. Both false-positive and false-negative reports do occur. . Performed at: WB Performed By: #### [id number] #### [facility] [address] [address] [address] Lakshmi Ha Performed by: Comment Normal [facility] Comment on above: Result Comment: Courtney Jacques, Machine Overhauler (ASCP) Performed at: WB Performed By: #### [id number] #### [facility] [address] [address] [address] Lakshmi Ha Specimen adequacy: Comment Normal [facility] Comment on above: Result Comment: Sati sfactory for evaluation. Endocervical and/or squamous metaplastic cells (endocervical component) are present. Performed at: WB Performed By: #### [id number] #### [facility] [address] [address] [address] Lakshmi Ha Vital Signs Date Time Vital Sign Value Performing Clinician Facility 12-23-2024 15:21-0500 Body mass index (BMI) [Ratio] 29.19 kg/m2 [employer] Work Phone: [facility] 12-23-2024 15:21-0500 Body weight 87.09 kg [employer] DO Work Phone: [facility] 12-23-2024 15:21-0500 Diastolic blood pressure 72 mm[Hg] Vandana Kieran DO Work Phone: [facility] 12-23-2024 15:21-0500 Systolic blood pressure 120 mm[Hg] [employer] Kieran DO Work Phone: [facility] 12-07-2024 10:26-0500 Body mass index (BMI) [Ratio] 30.23 kg/m2 Vandana Kieran DO Work Phone: [facility] 12-07-2024 10:26-0500 Body weight 90.17 kg [employer] DO Work Phone: [facility] 12-07-2024 10:26-0500 Diastolic blood pressure 60 mm[Hg] Vandana Kieran DO Work Phone: [facility] 12-07-2024 10:26-0500 Systolic blood pressure 118 mm[Hg] Vandana Kieran DO Work Phone: [facility] 10-06-2024 10:14-0500 Body mass index (BMI) [Ratio] 28.89 kg/m2 Vandana Kieran DO Work Phone: [facility] 10-06-2024 10:14-0500 Body weight 86.18 kg Vandana Kieran DO Work Phone: [facility] 10-06-2024 10:14-0500 Diastolic blood pressure 72 mm[Hg] Vandana Kieran DO Work Phone: [facility] 10-06-2024 10:14-0500 Systolic blood pressure 112 mm[Hg] Vandana Kieran DO Work Phone: [facility] 12-04-2023 14:30-0500 Body height 172.72 cm Souleymane Bolton Other [facility] 12-04-2023 14:30-0500 Body mass index (BMI) [Ratio] 27.61 kg/m2 Souleymane Bolton Other [facility] 12-04-2023 14:30-0500 Body weight 82.37 kg Souleymane Bolton Other [facility] 12-04-2023 14:30-0500 Diastolic blood pressure 54 mm[Hg] Souleymane Bolton Other [facility] 12-04-2023 14:30-0500 Respiratory rate 18 /min Souleymane Bolton Other [facility] 12-04-2023 14:30-0500 SaO2% (BldA) [Mass fraction] 96 % Souleymane Bolton Other [facility] 12-04-2023 14:30-0500 Systolic blood pressure 91 mm[Hg] Souleymane Bolton Other [facility] 10-10-2023 14:15-0500 Body height 172.72 cm Tavon Rangel Other [facility] 10-10-2023 14:15-0500 Body mass index (BMI) [Ratio] 26.45 kg/m2 Tavon Rangel Other [facility] 10-10-2023 14:15-0500 Body weight 78.93 kg Tavon Rangel Other [facility] 10-10-2023 14:15-0500 Diastolic blood pressure 62 mm[Hg] Tavon Rangel Other [facility] 10-10-2023 14:15-0500 Respiratory rate 18 /min Tavon Rangel Other [facility] 10-10-2023 14:15-0500 SaO2% (BldA) [Mass fraction] 97 % Tavon Rangel Other [facility] 10-10-2023 14:15-0500 Systolic blood pressure 92 mm[Hg] Tavon Rangel Other [facility] 09-26-2023 14:45-0400 Body height 172.72 cm Souleymane Bolton Other [facility] 09-26-2023 14:45-0400 Body mass index (BMI) [Ratio] 26.91 kg/m2 Souleymane [employer] Other [facility] 09-26-2023 14:45-0400 Body weight 80.29 kg Souleymane [employer] Other [facility] Other 09-26-2023 14:45-0400 Diastolic blood pressure 59 mm[Hg] Souleymane [employer] Other [facility] 09-26-2023 14:45-0400 Respiratory rate 18 /min Souleymane [employer] Other [facility] 09-26-2023 14:45-0400 SaO2% (BldA) [Mass fraction] 100 % Souleymane [employer] Other [facility] 09-26-2023 14:45-0400 Systolic blood pressure 93 mm[Hg] Souleymane [employer] Other [facility] Other 01-30-2023 16:30-0500 Body height 172.72 cm Souleymane [employer] Other [facility] Other 01-30-2023 16:30-0500 Body mass index (BMI) [Ratio] 31.18 kg/m2 Souleymane [employer] Other [facility] Other 01-30-2023 16:30-0500 Body weight 93.03 kg Souleymane [employer] Other [facility] Other 01-30-2023 16:30-0500 Diastolic blood pressure 66 mm[Hg] Souleymane Bolton Other [facility] 01-30-2023 16:30-0500 Respiratory rate 18 /min Souleymane Bolton Other [facility] 01-30-2023 16:30-0500 SaO2% (BldA) [Mass fraction] 96 % Souleymane Bolton Other [facility] 01-30-2023 16:30-0500 Systolic blood pressure 95 mm[Hg] Souleymane Bolton Other [facility] Other 10-19-2022 10:45-0500 Body height 172.72 cm Souleymane Bolton Other [facility] 10-19-2022 10:45-0500 Body mass index (BMI) [Ratio] 31.93 kg/m2 Souleymane Bolton Other [facility] Other 10-19-2022 10:45-0500 Body weight 95.26 kg Souleymane Bolton Other [facility] Other 10-19-2022 10:45-0500 Diastolic blood pressure 67 mm[Hg] Souleymane Bolton Other [facility] Other 10-19-2022 10:45-0500 Respiratory rate 18 /min Souleymane Bolton Other [facility] Other 10-19-2022 10:45-0500 SaO2% (BldA) [Mass fraction] 99 % Souleymane [employer] Other [facility] Other 10-19-2022 10:45-0500 Systolic blood pressure 110 mm[Hg] Souleymane Bolton Other [facility] Other 09-07-2022 10:45-0400 Body height 172.72 cm Souleymane Bolton Other [facility] 09-07-2022 10:45-0400 Body mass index (BMI) [Ratio] 33.26 kg/m2 Souleymane [employer] Other [facility] Other 09-07-2022 10:45-0400 Body weight 99.25 kg Souleymane Bolton Other [facility] 09-07-2022 10:45-0400 Diastolic blood pressure 69 mm[Hg] Souleymane [employer] Other [facility] Other 09-07-2022 10:45-0400 Respiratory rate 18 /min Souleymane Bolton Other [facility] 09-07-2022 10:45-0400 SaO2% (BldA) [Mass fraction] 98 % Souleymane [employer] Other [facility] 09-07-2022 10:45-0400 Systolic blood pressure 109 mm[Hg] Souleymane [employer] Other [facility] Other 05-17-2022 13:30-0400 Body height 172.72 cm Tavon Rangel Other [facility] Other 05-17-2022 13:30-0400 Body mass index (BMI) [Ratio] 34.82 kg/m2 Tavon Rangel Other [facility] 05-17-2022 13:30-0400 Body weight 103.87 kg Tavoncharity Mccauleyjose l Other [facility] Other 05-17-2022 13:30-0400 Diastolic blood pressure 60 mm[Hg] Tavon Rangel Other [facility] Other 05-17-2022 13:30-0400 Respiratory rate 16 /min Tavon Rangel Other [facility] Other 05-17-2022 13:30-0400 SaO2% (BldA) [Mass fraction] 97 % Tavon Rangel Other [facility] 05-17-2022 13:30-0400 Systolic blood pressure 102 mm[Hg] Tavon Rangel Other [facility] Other 02-08-2022 12:30-0500 Body height 172.72 cm Tavon Rangel Other [facility] 02-08-2022 12:30-0500 Body mass index (BMI) [Ratio] 34.66 kg/m2 Tavon Rangel Other [facility] Other 02-08-2022 12:30-0500 Body weight 103.42 kg Tavon Rangel Other [facility] Other 02-08-2022 12:30-0500 Diastolic blood pressure 66 mm[Hg] Tavon Rangel Other [facility] Other 02-08-2022 12:30-0500 Respiratory rate 16 /min Tavon Rangel Other [facility] Other 02-08-2022 12:30-0500 SaO2% (BldA) [Mass fraction] 98 % Tavon Rangel Other [facility] Other 02-08-2022 12:30-0500 Systolic blood pressure 120 mm[Hg] Tavon Mccauleyjose l Other [facility] Other Encounters Encounter Date Encounter Type Care Provider Facility Start: 12-30-2024 End: 12-30-2024 ambulatory VANDANA KIERAN Not Available Start: 12-23-2024 End: 12-23-2024 Patient encounter procedure Vandana Kieran DO Work Phone: [facility] Comment on above: Pre-op evaluation; Request for sterilization; Menorrhagia with regular cycle; Abnormal uterine bleeding (AUB); Pelvic pain in female Start: 12-23-2024 End: 12-23-2024 Preprocedural examination done Vandana Kieran DO Work Phone: [facility] Start: 12-23-2024 End: 12-23-2024 ambulatory Vnadana Kieran Facility:[facility] Start: 12-08-2024 End: 12-08-2024 Clinisync Result Encounter Vandana Kieran DO Work Phone: [facility] Unsolicited Start: 12-08-2024 End: 12-08-2024 Clinisync Result Encounter Vandana Kieran DO Work Phone: [facility] Unsolicited Start: 12-07-2024 End: 12-07-2024 Bamboo flowsheet Vandana Kieran DO Work Phone: [facility] Start: 12-07-2024 End: 12-07-2024 Bamboo flowsheet Vandana Kieran DO Work Phone: [facility] Start: 12-07-2024 End: 12-07-2024 Office outpatient visit 15 minutes Vandana Kieran DO Work Phone: [facility] Comment on above: Boils; Encounter for surveillance of other contraceptive; Consultation for sterilization; Urinary tract infection without hematuria, site unspecified; Menorrhagia with regular cycle Start: 12-07-2024 End: 12-07-2024 ambulatory VANDANA KIERAN Not Available Start: 10-06-2024 End: 10-06-2024 Bamboo flowsheet Vandana Kieran DO Work Phone: [facility] Start: 10-06-2024 End: 10-15-2024 Bamboo flowsheet Vandana Kieran DO Work Phone: [facility] Start: 10-06-2024 End: 10-15-2024 Clinisync Result Encounter Vandana Kieran DO Work Phone: [facility] External Department Unsolicited Start: 10-06-2024 End: 10-07-2024 External Result Encounter Vandana Kieran DO Work Phone: [facility] External Department Unsolicited Start: 10-06-2024 End: 10-06-2024 Patient encounter procedure Vandana Kieran DO Work Phone: [facility] Start: 10-06-2024 End: 10-06-2024 Periodic preventive med est patient 18-39 yrs Vandana Kieran DO Work Phone: [facility] Comment on above: Well woman exam with routine gynecological exam; Urinary tract infection without hematuria, site unspecified; Yeast infection; Vaginal discharge; Irregular periods/menstrual cycles Start: 10-06-2024 End: 10-06-2024 ambulatory VANDANA KIERAN Not Available Start: 04-07-2024 End: 04-07-2024 ambulatory Tavon Rangel Facility:[facility] Start: 03-23-2024 End: 03-23-2024 ambulatory JESSICA CEDILLO Facility:[facility] Start: 03-23-2024 End: 03-23-2024 Patient encounter procedure Jessica Cedillo PA-C Work Phone: Otolaryngology Comment on above: Dysfunction of both eustachian tubes (Primary Dx) Start: 03-11-2024 Telephone encounter Shun Skinner MD Work Phone: Otolaryngology Comment on above: Medication Problem Start: 12-17-2023 End: 12-17-2023 ambulatory Tavon Rangel Other [facility] Other Start: 12-17-2023 Telephone encounter Tavon Juan Carlos [facility] Start: 12-10-2023 End: 12-10-2023 ambulatory Tavon Garrickjose l Other [facility] Other Start: 12-10-2023 Telephone encounter Tavon Rangel [facility] Start: 12-04-2023 End: 12-04-2023 ambulatory Souleymane Bolton Other [facility] Other Start: 12-04-2023 Follow-up encounter Souleymane srinivasan [facility] Start: 11-27-2023 End: 11-27-2023 ambulatory Tavon Rangel Other [facility] Other Start: 11-27-2023 Telephone encounter Tavon Juan Carlos [facility] Start: 11-05-2023 End: 11-05-2023 ambulatory Souleymane Bolton Other [facility] Other Start: 11-05-2023 Telephone encounter Souleymane srinivasan [facility] Start: 10-31-2023 End: 10-31-2023 ambulatory Tavon Rangel Other [facility] Other Start: 10-31-2023 Telephone encounter Tavon Juan Carlos [facility] Start: 10-10-2023 End: 10-10-2023 ambulatory Tavon Mccauleyjose l Other [facility] Other Start: 10-10-2023 Encounter for genera l adult medical examination without abnormal findings Tavon Rangel [facility] [place] Start: 10-10-2023 Periodic preventive med est patient 18-39 yrs Tavon Rangel [facility] [place] Start: 09-26-2023 End: 09-26-2023 ambulatory Souleymane Bolton Other [facility] Other Start: 09-26-2023 Follow-up encounter Souleymane srinivasan [facility] Start: 09-19-2023 End: 09-19-2023 ambulatory Tavon Rangel Other [facility] Other Start: 09-19-2023 Telephone encounter Tavon Rangel [facility] [place] Start: 08-29-2023 End: 08-29-2023 ambulatory Tavon Garrickjose l Other [facility] Other Start: 08-29-2023 Telephone encounter Tavon Rangel [facility] [place] Start: 08-21-2023 End: 08-21-2023 ambulatory Tavon Garrickjose l Other [facility] Other Start: 08-21-2023 Telephone encounter Tavon Rangel [facility] [place] Start: 07-04-2023 End: 07-04-2023 ambulatory Tavon Garrickjose l Other [facility] Other Start: 07-04-2023 Telephone encounter Tavon Rangel [facility] [place] Start: 02-26-2023 End: 02-26-2023 ambulatory Tavoncharity Rangel Other [facility] Other Start: 02-26-2023 Telephone encounter Tavon Rangel [facility] [place] Start: 01-30-2023 End: 01-30-2023 ambulatory Souleymane Bolton Other [facility] Other Start: 01-30-2023 Follow-up encounter oSuleymane srinivasan [facility] Start: 10-19-2022 End: 10-19-2022 ambulatory Souleymane Bolton Other [facility] Other Start: 10-19-2022 Follow-up encounter Souleymane srinivasan [facility] Start: 09-17-2022 End: 09-17-2022 ambulatory Tavon Rangel Other [facility] Other Start: 09-17-2022 Telephone encounter Tavon Rangel [facility] [place] Start: 09-07-2022 End: 09-07-2022 ambulatory Souleymane Bolton Other [facility] Other Start: 09-07-2022 Follow-up encounter Souleymane srinivasan [facility] Start: 07-26-2022 End: 07-26-2022 ambulatory Souleymane Bolton Other [facility] Other Start: 07-26-2022 Telephone encounter Souleymane srinivasan [facility] Start: 07-18-2022 End: 07-18-2022 ambulatory Souleymane Bolton Other [facility] Other Start: 07-18-2022 Telephone encounter Souleymane Ortiz [facility] Start: 07-12-2022 End: 07-12-2022 ambulatory Tavon Rangel Other [facility] Other Start: 07-12-2022 Telephone encounter Tavon Rangel [facility] [place] Start: 05-17-2022 End: 05-17-2022 ambulatory Tavon Rangel Other [facility] Other Start: 05-17-2022 Office outpatient vi sit 25 minutes Tavon Rangel [facility] Start: 03-13-2022 End: 03-13-2022 ambulatory Tavon Rangel Other [facility] Other Start: 03-13-2022 Telephone encounter Tavon DIA [facility] Start: 02-08-2022 End: 02-08-2022 ambulatory Tavon Rangel Other [facility] Other Start: 02-08-2022 Office outpatient vi sit 25 minutes Tvaon Rangel [facility] Start: 02-06-2022 End: 02-06-[address] VANDANA ALCARAZ Facility: Start: 01-29-2022 End: 01-29-2022 ambulatory Tavon Rangel Other [facility] Other Start: 01-29-2022 Telephone encounter Tavon Rangel [facility] Start: 12-13-2021 End: 12-13-2021 ambulatory Tavon Rangel Other [facility] Other Start: 12-13-2021 Telephone encounter Tavon Rangel [facility] [place] [facility] Procedures Date Procedure Procedure Detail Performing Clinician Start: 12-23-2024 Urine test visual color cmprsn meths Vandana Kieran DO Work Phone: Start: 12-08-2024 ALL CBC WITH AUTO DIFF Vandana Kieran DO Work Phone: Start: 10-06-2024 RECURRENT VAGINITIS (HTRX) Vandana Kieran DO Work Phone: Start: 10-06-2024 Urnls dip stick/tabl et rgnt non-auto w/o micrscp Vandana Kieran DO Work Phone: Start: 10-06-2024 IGP,APTIMA HPV,AGE GDLN Vandana Kieran DO Work Phone: Start: 10-06-2024 Microscopic observat ion [Identifier] in Cervix by Cyto stain Vandana Kieran DO Work Phone: Start: 10-01-2023 Microscopic observat ion [Identifier] in Cervix by Cyto stain Vandana Kieran DO Work Phone: Start: 10-01-2023 Cytp cerv/vag auto t hin layer prep mnl screen [employer] DO Work Phone: Plan of Treatment Date Care Activity Detail Author Start: 10-06-2029 Screening for malign ant neoplasm of cervix [facility] Start: 10-01-2028 Screening for malign ant neoplasm of cervix [facility] Start: 10-14-2025 End: 10-14-2025 Patient encounter procedure 10/14/2025 10:00 AM EST Office Visit [facility] [address] [place] [phone] Vandana Alcaraz, DO [address] [place] [address] [facility] Start: 12-30-2024 End: 12-30-2024 Professional / ancillary services management 12/30/2024 1:00 PM EST Ancillary Procedure [facility] [address] [place] [phone] [facility] Start: 12-23-2024 End: 12-23-2024 Patient encounter procedure 12/23/2024 2:30 PM EST Procedure Visit [facility] [address] [place] [phone] Vandana Alcaraz, DO [address] [place] [address] [facility] Start: 12-07-2024 End: 12-07-2025 aPTT in Blood by Coagulation assay APTT Lab Routine Menorrhagia with regular cycle Expected: 12/07/2024 (Approximate), Expires: 12/07/2025 [facility] Comment on above: Expected: 12/07/2024 (Approximate), Expires: 12/07/2025 Start: 12-07-2024 End: 12-07-2025 US Pelvis US Pelvis w/ TV Imaging Routine Menorrhagia with regular cycle Expected: 12/07/2024, Expires: 12/07/2025 [facility] Comment on above: Expected: 12/07/2024 , Expires: 12/07/2025 Start: 12-07-2024 End: 12-07-2024 Patient encounter procedure [facility] Comment on above: Arrived Start: 10-06-2024 End: 10-06-2024 Patient encounter procedure 10/06/2024 10:00 AM EST Office Visit [facility] [address] [place] [phone] Vandana Alcaraz DO [address] [place] [address] Arrived [facility] Comment on above: Arrived Start: 08-02-2024 Influenza vaccination [facility] Start: 12-02-2023 Behavioral Health Screening Behavioral Health Screening [facility] Start: 08-02-2023 Covid-19 Vaccine ( season) Covid-19 Vaccine ( season) [facility] Start: 08-02-2023 Covid-19 Vaccine ( season) Covid-19 Vaccine ( season) [facility] Start: 2017 Screening for malign ant neoplasm of cervix [facility] Start: 2008 Screening for malign ant neoplasm of cervix [facility] Start: 2006 Hepatitis B Vaccine (1 of 3 - 19+ 3-dose series) Hepatitis B Vaccine (1 of 3 - 19+ 3-dose series) [facility] Start: 2006 Urine microalbumin profile DTaP,Tdap,Td Vaccine (1 - Tdap) [facility] Start: 2005 Hepatitis C screening Hepatitis C Sc reening [facility] Start: 2005 HIV screening HIV Screening [facility] CBC W Auto Different ial panel - Blood CBC and differential Lab Routine Menorrhagia with regular cycle Ordered: 12/07/2024 [facility] Work Phone: Comment on above: Ordered: 12/07/2024 CHLAMYDIA TRACHOMATI S (GENITO/STI) CHLAMYDIA TRACHOMATIS (GENITO/STI) Lab Routine Vaginal discharge Ordered: 10/06/2024 [facility] Comment on above: Ordered: 10/06/2024 Cytology Cervical or vaginal smear or scraping study Pap Smear Pathology and Cytology Routine Well woman exam with routine gynecological exam Ordered: 10/06/2024 [facility] Work Phone: Comment on above: Ordered: 10/06/2024 Endometrial biopsy Endometrial b iopsy Procedures Routine Menorrhagia with regular cycle Abnormal uterine bleeding (AUB) Pelvic pain in female Ordered: 12/23/2024 [facility] Work Phone: Comment on above: Ordered: 12/23/2024 hCG, quantitative, hCG, quantitative, Lab Routine Menorrhagia with regular cycle Ordered: 12/07/2024 [facility] Comment on above: Ordered: 12/07/2024 Hemoglobin A1c/Hemoglobin.total in Blood Hemoglobin A1c Lab Routine Menorrhagia with regular cycle Ordered: 12/07/2024 [facility] Comment on above: Ordered: 12/07/2024 Human papilloma viru s DNA [Presence] in Unspecified specimen by Probe with amplification HPV DNA probe, amplified Microbiology Routine Well woman exam with routine gynecological exam Ordered: 10/06/2024 [facility] Comment on above: Ordered: 10/06/2024 Neisseria gonorrhoea e DNA [Presence] in Unspecified specimen by PAMELA with probe detection Neisseria gonorrhea DNA probe, direct Lab Routine Vaginal discharge Ordered: 10/06/2024 [facility] Comment on above: Ordered: 10/06/2024 Prothrombin time (PT ) in Blood by Coagulation assay Protime-INR Lab Routine Menorrhagia with regular cycle Ordered: 12/07/2024 [facility] Comment on above: Ordered: 12/07/2024 SURESWAB(R) ADVANCED VAGINITIS PLUS, TMA SURESWAB(R) ADVANCED VAGINITIS PLUS, TMA Pathology and Cytology Routine Yeast infection Ordered: 10/06/2024 [facility] Comment on above: Ordered: 10/06/2024 Thyrotropin [Units/volume] in Serum or Plasma TSH Lab Routine Menorrhagia with regular cycle Ordered: 12/07/2024 [facility] Comment on above: Ordered: 12/07/2024 Thyroxine (T4) free [Mass/volume] in Serum or Plasma T4, free Lab Routine Menorrhagia with regular cycle Ordered: 12/07/2024 [facility] Comment on above: Ordered: 12/07/2024 Antonio Fuentes tarun Immunizations Immunization Date Immunization Notes Care Provider Brenden melendez 11-10-2024 influenza virus vaccine, unspecified formulation Vandana Alcaraz DO Work Phone: [facility] 10-10-2023 influenza, injectable, quadrivalent, contains preservative Tavon Juan Carlos Other [facility] 10-10-2023 influenza virus vaccine, unspecified formulation Vandana Alcaraz DO Work Phone: [facility] 10-12-2021 influenza, seasonal, injectable Tavon Rangel Other [facility] 09-29-2021 COVID-19 Vaccine Moderna - Documentation Purposes Only Tavon Juan Carlos Other [facility] 08-31-2021 COVID-19 Vaccine Moderna - Documentation Purposes Only Tavon Juan Carlos Other [facility] 10-20-2015 influenza, injectable, quadrivalent, contains preservative Tavon Rangel Other [facility] Other NEGATED: Highlighted row has not occurred!02-09-2020 influenza, seasonal, injectable Patient Objection Tavon Rangel Other [facility] Other Payers Date Payer Category Payer Self-pay 2023 Unknown MERE ROSENBERG PPO [id number] 2023-Present [phone] [address] [place] [address] PPO [id number] 2020 Private Health Insurance [id number] 2020 Unknown [id number] 1987 Unknown [id number] 1987 Unknown [id number] [id number] 1987 Unknown [id number] [id number] 1987 Unknown [id number] 1259 1987 Unknown [id number] 1259 1959 Unknown [id number] Unknown [id number] Unknown [id number] Social History Date Type Detail Facility Unknown if ever smoked [facility] Start: 03-23-2024 End: 10-06-2024 Sex Assigned At [facility] Other Tobacco smoking status MSIS Tobacco smoking consumption unknown [facility] Start: 1987 Sex Assigned At Not on file [facility] Start: 03-23-2024 End: 10-06-2024 History of Social function [facility] National Score (1-100), lower number is lower risk 41 [facility] Start: 09-30-2023 Tobacco smoking status MSIS Smokes tobacco daily [facility] History of tobacco use Cigarette Smoker [facility] Start: 10-01-2023 End: 12-07-2024 Alcoholic beverage intake Lifetime non-drinker (finding) [facility] Start: 09-30-2023 Alcohol Comment Caffeine intak e: 1-2 cups per day soda, coffee [facility] Start: 1987 Sex assigned at Female [facility] Start: 09-24-2023 Gender identity Identifies as female gender (finding) [facility] Clinical Notes 07-10-2019 to 12-23-2024 Caterina Floyd - 12/23/2024 2:30 PM Suni Glover, ELEVATOR CONSTRUCTOR HELPER - 12/07/2024 10:20 AM Norma Lundberg LPN - 10/06/2024 10:00 AM ESTJessica Felton PA-C - 03/23/2024 9:42 AM EDT Note Date & Type Note Facility 12-23-2024 History of Presen t illness Narrative Reason for Appointment: Patient ID: Justino Keller is a 39 y.o. female who presents for Pre-op Visit and Endometrial Biopsy Patient presents today for Pre Op/Endometrial Biopsy appointment. Patient is scheduled to undergo Da Madi assisted Bilateral Laparoscopic Salpingectomy and Endometrial Ablation with Deysi on 01/22/[address] Alcaraz at [facility]. MEDICATIONS Current Outpatient Medications Medication Instructions atorvastatin (LIPITOR) 40 mg, Daily RT cephalexin (KEFLEX) 500 mg, Oral, Daily cetirizine (ZyrTEC) 10 MG tablet Every 24 hours cyclobenzaprine (Flexeril) 10 MG tablet Emgality 120 mg, Once ibuprofen 800 MG tablet levocetirizine (Xyzal) 5 MG tablet Every 24 hours loratadine (Claritin) 10 MG tablet Every 24 hours metFORMIN XR (GLUCOPHAGE-XR) 500 mg, Oral, Daily with evening meal, Do not crush, chew, or split. norethindrone-ethinyl estradiol (June12/21) 1-20 MG-MCG tablet 1 tablet, Oral, Daily zolpidem CR (AMBIEN CR) 6.25 mg, Nightly PRN ALLERGIES Allergies Allergen Reactions Morphine Shortness of breath, Hives, Itching and Rash Other Reaction(s): Unknown Hydrocodone-Acetaminophen Other Reaction(s): Unknown Hydrocodone Rash Penicillin G Rash Penicillins Hives, Itching and Rash Other Reaction(s): Unknown Sulfa Antibiotics Rash, Hives and Itching Other Reaction(s): Unknown PROBLEMS Active Ambulatory Problems Diagnosis Date Noted Boils 12/07/2024 Contraceptive surveillance 12/07/2024 Consultation for sterilization 12/07/2024 Resolved Ambulatory Problems Diagnosis Date Noted No Resolved Ambulatory Problems Past Medical History: Diagnosis Date Allergies Left breast lump Migraine headache (CMS/HCC) HISTORY PAST MEDICAL HISTORY SOCIAL HISTORY Past Medical History: Diagnosis Date Allergies Left breast lump side 2oclock Migraine headache (CMS/HCC) Social History Tobacco Use Smoking status: Every Day Current packs/day: 1.00 Types: Cigarettes Smokeless tobacco: Not on file Substance Use Topics Alcohol use: Never Comment: Caffeine intake: 1-2 cups per day soda, coffee Drug use: Not on file FAMILY HISTORY Family History Problem Relation Name Age of Onset Multiple sclerosis Mother Lupus Mother Diabetes Father SURGICAL HISTORY Past Surgical History: Procedure Laterality Date HERNIA REPAIR 2007 THORACIC OUTLET SURGERY 2005 REVIEW OF SYSTEMS Review of Systems: Review of Systems Constitutional: Negative. HENT: Negative. Eyes: Negative. Respiratory: Negative. Cardiovascular: Negative. Gastrointestinal: Negative. Genitourinary: Positive for menstrual problem and pelvic pain. Musculoskeletal: Negative. Skin: Negative. Neurological: Negative. All other systems reviewed and are negative. Hematological: Negative. Endocrine: Negative. Allergic/Immunologic: Negative. OBJECTIVE Objective: Physical Exam Constitutional: Appearance: Normal appearance. She is well-developed. Genitourinary: Vulva normal. Cardiovascular: Rate and Rhythm: Normal rate and regular rhythm. Pulmonary: Effort: Pulmonary effort is normal. Breath sounds: Normal breath sounds. Abdominal: General: Bowel sounds are normal. There is no distension. Palpations: Abdomen is soft. Tenderness: There is no abdominal tenderness. There is no guarding or rebound. Musculoskeletal: General: No swelling. Normal range of motion. Right lower leg: No edema. Left lower leg: No edema. Neurological: Mental Status: She is alert and oriented to person, place, and time. Skin: General: Skin is warm and dry. Psychiatric: Mood and Affect: Mood normal. Behavior: Behavior normal. Vitals and nursing note reviewed. Exam conducted with a stripping shovel oiler present. Vitals: Estimated body mass index is 30.23 kg/m as calculated from the following: Height as of 10/01/23: 5' 8 . Weight as of 12/07/24: 198 lb 12.8 oz. BP: Patient's last menstrual period was 11/11/2024. ASSESSMENT & PLAN ICD-10-CM 1. Pre-op evaluation Z01.818 2. Request for sterilization Z30.2 POCT , urine manually resulted 3. Menorrhagia with regular cycle N92.0 Endometrial biopsy 4. Abnormal uterine bleeding (AUB) N93.9 Endometrial biopsy 5. Pelvic pain in female R10.2 Endometrial biopsy EMBX: Patient was placed in dorsal lithotomy position with feet in stirrups. A sterile speculum was placed into the vagina and the cervix was visualized. The cervix was grasped with a single tooth tenaculum. The endometrial pipette was placed through the cervix into the uterus, endometrial curettage was performed and sampling was obtained, endometrial curettings were placed in formalin, and single tooth tenaculum was removed. Excellent hemostasis was assured. All instruments were removed from vagina. Pre Op: Patient is doing well but has desire for sterilization and has complaints of bleeding and pelvic pain. Patient has tried hormone therapy in the past but all attempts to subside patients issues of bleeding have failed. I have discussed conservative management vs. surgical management with the patient in detail and patient desires surgical management at this time. Patient has voiced understanding that a Bilateral Salpingectomy is considered to be permanent and patient will undergo Da Madi assisted Bilateral Laparoscopic Salpingectomy & Endometrial Ablation with Deysi on 01/22/2025. Surgical consents were signed, mmc was reviewed, and patient is to proceed to [facility] OR. Follow Up: Patient is to follow up between 1-2 weeks post op to assess proper healing and recovery from procedure. Documented by Milagro Lundberg LPN on behalf of: Vandana Alcaraz DO documented in this encounter [facility] 12-07-2024 History of Presen t illness Narrative Reason for Appointment: Patient ID: Justino Keller is a 39 y.o. female who presents for Cyst and Contraception Patient presents today for Follow up appointment to discuss results. MEDICATIONS Current Outpatient Medications Medication Instructions atorvastatin (LIPITOR) 40 mg, Daily RT cetirizine (ZyrTEC) 10 MG tablet Every 24 hours cyclobenzaprine (Flexeril) 10 MG tablet Emgality 120 mg, Once ibuprofen 800 MG tablet levocetirizine (Xyzal) 5 MG tablet Every 24 hours loratadine (Claritin) 10 MG tablet Every 24 hours metFORMIN XR (GLUCOPHAGE-XR) 500 mg, Oral, Daily with evening meal, Do not crush, chew, or split. norethindrone-ethinyl estradiol (12/21) 1-20 MG-MCG tablet 1 tablet, Oral, Daily zolpidem CR (AMBIEN CR) 6.25 mg, Nightly PRN ALLERGIES Allergies Allergen Reactions Morphine Shortness of breath, Hives, Itching and Rash Other Reaction(s): Unknown Hydrocodone-Acetaminophen Other Reaction(s): Unknown Hydrocodone Rash Penicillin G Rash Penicillins Hives, Itching and Rash Other Reaction(s): Unknown Sulfa Antibiotics Rash, Hives and Itching Other Reaction(s): Unknown PROBLEMS Active Ambulatory Problems Diagnosis Date Noted No Active Ambulatory Problems Resolved Ambulatory Problems Diagnosis Date Noted No Resolved Ambulatory Problems Past Medical History: Diagnosis Date Allergies Left breast lump Migraine headache (CMS/HCC) HISTORY PAST MEDICAL HISTORY SOCIAL HISTORY Past Medical History: Diagnosis Date Allergies Left breast lump side 2oclock Migraine headache (CMS/HCC) Social History Tobacco Use Smoking status: Every Day Current packs/day: 1.00 Types: Cigarettes Smokeless tobacco: Not on file Substance Use Topics Alcohol use: Never Comment: Caffeine intake: 1-2 cups per day soda, coffee Drug use: Not on file FAMILY HISTORY Family History Problem Relation Name Age of Onset Multiple sclerosis Mother Lupus Mother Diabetes Father SURGICAL HISTORY Past Surgical History: Procedure Laterality Date HERNIA REPAIR 2007 THORACIC OUTLET SURGERY 2005 REVIEW OF SYSTEMS Review of Systems: Review of Systems Genitourinary: Positive for menstrual problem, vaginal bleeding and vaginal discharge. Neurological: Positive for headaches. All other systems reviewed and are negative. Answers submitted by the patient for this visit: Female Genital Questionnaire (Submitted on 11/30/2024) Chief Complaint: Female genitourinary complaint Chronicity: chronic Onset: more than 1 month ago Frequency: intermittently Progression since onset: waxing and waning Pain severity: no pain Affected side: both now?: No Aggravated by: nothing Sexual activity: sexually active Partner with STD symptoms: no control: condoms, oral contraceptives Menstrual history: irregular Discharge characteristics: mucoid Passing clots?: No Passing tissue?: No OBJECTIVE Objective: Physical Exam Constitutional: Appearance: Normal appearance. She is well-developed. Cardiovascular: Rate and Rhythm: Normal rate and regular rhythm. Pulmonary: Effort: Pulmonary effort is normal. Breath sounds: Normal breath sounds. Abdominal: General: Bowel sounds are normal. There is no distension. Palpations: Abdomen is soft. Tenderness: There is no abdominal tenderness. There is no guarding or rebound. Musculoskeletal: General: No swelling. Normal range of motion. Right lower leg: No edema. Left lower leg: No edema. Neurological: Mental Status: She is alert and oriented to person, place, and time. Skin: General: Skin is warm and dry. Psychiatric: Mood and Affect: Mood normal. Behavior: Behavior normal. Vitals and nursing note reviewed. Exam conducted with a stripping shovel oiler present. Vitals: Estimated body mass index is 30.23 kg/m as calculated from the following: Height as of 10/01/23: 5' 8 . Weight as of this encounter: 198 lb 12.8 oz. BP: 118/60 Patient's last menstrual period was 11/11/2024. ASSESSMENT & PLAN ICD-10-CM 1. Boils L02.92 2. Encounter for surveillance of other contraceptive Z30.49 Patient presents for follow up today and is doing well on low dose OCP, but would prefer surgical management for sterilization and Ablation. Patient voiced that she has completed childbearing. Patient will discuss surgery with clerk of superior court and placed on the books. Patient to return to clinic for pre-op appointment. Documented by Alisha Glover LPN on behalf of: Vandana Alcaraz DO documented in this encounter [facility] 10-06-2024 History of Presen t illness Narrative Reason for Appointment: Patient ID: Justino Keller is a 38 y.o. female who presents for Gynecologic Exam Patient presents today for Annual Exam. and STD Check. MEDICATIONS Current Outpatient Medications Medication Instructions ALPRAZolam (Xanax) 1 MG tablet atorvastatin (LIPITOR) 40 mg, Oral, Daily RT cetirizine (ZyrTEC) 10 MG tablet Every 24 hours clarithromycin (Biaxin) 500 MG tablet cyclobenzaprine (Flexeril) 10 MG tablet Emgality 120 mg, Subcutaneous, Once esomeprazole (NexIUM) [address] capsule 1 capsule, Every 24 hours etonogestrel-ethinyl estradiol (Nuvaring) 0.12-0.015 MG/24HR vaginal ring 1 Ring, Vaginal, Every 28 days, Insert vaginally and leave in place for 21 consecutive days (3 weeks), then remove. Wait for 7 days before inserting new ring. ibuprofen 800 MG tablet levocetirizine (Xyzal) 5 MG tablet Every 24 hours loratadine (Claritin) 10 MG tablet Every 24 hours Semaglutide (OZEMPIC, 0.25 OR 0.5 MG/DOSE, SC) 1 mL, Subcutaneous, Weekly zolpidem CR (AMBIEN CR) 6.25 mg, Oral, Nightly PRN, Do not crush, chew, or split. ALLERGIES Allergies Allergen Reactions Morphine Shortness of breath, Hives, Itching and Rash Other Reaction(s): Unknown Hydrocodone-Acetaminophen Other Reaction(s): Unknown Hydrocodone Rash Penicillin G Rash Penicillins Hives, Itching and Rash Other Reaction(s): Unknown Sulfa Antibiotics Rash, Hives and Itching Other Reaction(s): Unknown PROBLEMS Active Ambulatory Problems Diagnosis Date Noted No Active Ambulatory Problems Resolved Ambulatory Problems Diagnosis Date Noted No Resolved Ambulatory Problems Past Medical History: Diagnosis Date Allergies Left breast lump Migraine headache (CMS/HCC) HISTORY PAST MEDICAL HISTORY SOCIAL HISTORY Past Medical History: Diagnosis Date Allergies Left breast lump side 2oclock Migraine headache (CMS/HCC) Social History Tobacco Use Smoking status: Every Day Current packs/day: 1.00 Types: Cigarettes Smokeless tobacco: Not on file Substance Use Topics Alcohol use: Never Comment: Caffeine intake: 1-2 cups per day soda, coffee Drug use: Not on file FAMILY HISTORY Family History Problem Relation Name Age of Onset Multiple sclerosis Mother Lupus Mother Diabetes Father SURGICAL HISTORY Past Surgical History: Procedure Laterality Date HERNIA REPAIR 2007 THORACIC OUTLET SURGERY 2006 REVIEW OF SYSTEMS Review of Systems: Review of Systems Constitutional: Negative. HENT: Negative. Eyes: Negative. Respiratory: Negative. Cardiovascular: Negative. Gastrointestinal: Negative. Genitourinary: Positive for vaginal discharge. Musculoskeletal: Negative. Skin: Negative. Neurological: Negative. All other systems reviewed and are negative. Hematological: Negative. Endocrine: Negative. Allergic/Immunologic: Negative. OBJECTIVE Objective: Physical Exam Constitutional: Appearance: Normal appearance. She is well-developed. Genitourinary: Vulva normal. Breasts: Breasts are soft. Right: Normal. Left: Normal. Cardiovascular: Rate and Rhythm: Normal rate and regular rhythm. Pulmonary: Effort: Pulmonary effort is normal. Breath sounds: Normal breath sounds. Abdominal: General: Bowel sounds are normal. There is no distension. Palpations: Abdomen is soft. Tenderness: There is no abdominal tenderness. There is no guarding or rebound. Musculoskeletal: General: No swelling. Normal range of motion. Right lower leg: No edema. Left lower leg: No edema. Neurological: Mental Status: She is alert and oriented to person, place, and time. Skin: General: Skin is warm and dry. Psychiatric: Mood and Affect: Mood normal. Behavior: Behavior normal. Vitals and nursing note reviewed. Exam conducted with a stripping shovel oiler present. Vitals: Estimated body mass index is 28.89 kg/m as calculated from the following: Height as of 10/01/23: 5' 8 . Weight as of this encounter: 190 lb. BP: 112/72 Patient's last menstrual period was 10/01/2024 (exact date). ASSESSMENT & PLAN ICD-10-CM 1. Well woman exam with routine gynecological exam Z01.419 Pap Smear HPV DNA probe, amplified 2. Urinary tract infection without hematuria, site unspecified N39.0 POCT urinalysis dipstick manually resulted 3. Yeast infection B37.9 SURESWAB(R) ADVANCED VAGINITIS PLUS, TMA 4. Vaginal discharge N89.8 CHLAMYDIA TRACHOMATIS (GENITO/STI) Neisseria gonorrhea DNA probe, direct Annual Exam: Patient presents today for an annual exam. Patient states she is doing well and has complaints cysts in vagina- cyst popped 2 days ago- cultures obtained rx for keflex, diflucan. Pt to switch control from nuva ring to Junel for three months to see if cysts and discharge subside. Pt is using control for bleeding control as well as control. Discussed doing ablation and tubal ligation - pt considering. Pap and cultures were obtained without difficulty. Orders Placed This Encounter Procedures HPV DNA probe, amplified CHLAMYDIA TRACHOMATIS (GENITO/STI) Neisseria gonorrhea DNA probe, direct POCT urinalysis dipstick manually resulted Follow Up: Pt to return in 2 months for follow up on cysts, control and vaginal discharge. Patient is to return in one year for annual unless needed otherwise. Documented by Milagro Lundberg LPN on behalf of: Vandana Alcaraz DO documented in this encounter [facility] 03-23-2024 Note HNO ID: [id number] Author: JESSICA CEDILLO PA-C Service: ? Author Type: Physician Cabinetmaker Supervisor Type: Progress Notes Filed: 03/23/2024 10:05 Note Text: History of Present Illness Ms. JUSTINO KELLER is a 38 year old year old female presenting for: referred by No referring provider defined for this encounter. And is a patient of No primary care provider on file. To use this Smartlink, specify the provider ID whose address you want to display, e.g., .VoltaireADDR[1 (where 1 is the provider ID). Communication [...] Medical Decision Making Level: 4 - Moderate [facility] 03-23-2024 Instructions Jessica Cedillo PA-C - 03/23/2024 9:55 AM EDT Take the medrol dose pack, stay on the flonase until you feel back to your baseline. If you get to 8 week aleah and you still feel symptoms then reach out, we will schedule a hearing test and then follow-up after documented in this encounter [facility] 03-23-2024 History of Presen t illness Narrative [...] 4 - Moderate documented in this encounter [facility] 03-12-2024 Miscellaneous Notes Patient called back and [...] ear drops until she could see Jessica kevin PA later in the month. Would you be able to assist in filling the ear drops? Person Calling: Patient Reason for Call: Patient calked and stated that she seen Dr. Skinner with her mom yesterday, and a prescription was supposed to be put in for an antibiotic and another medication for infected ears. Pt Phone #: [phone] Pharmacy Name and # : [facility]/ [phone] Pt last seen: Visit date not found April Alvarez documented in this encounter [facility] 12-04-2023 Evaluation note Encounter Date Diagnosis Assessment Notes Dec, Prediabetes (ICD-10 - R73.03) Dec, Overweight (BMI 25.0-29.9) (ICD-10 - E66.3) Dec, Mixed hyperlipidemia (ICD-10 - E78.2) Dec, Tobacco abuse (ICD-10 - Z72.0) Dec, GERD (gastroesophageal reflux disease) (ICD-10 - K21.9) Dec, Migraine (ICD-10 - G43.909) Dec, Medication monitoring encounter (ICD-10 - Z51.81) Dec, Metabolic syndrome X (ICD-10 - E88.81) [facility] 12-05-2023 Evaluation note* Encounter Date Diagnosis Assessment Notes Treatment Notes Treatment Clinical Notes Nov, Encounter for smoking cessation counseling (ICD-10 - Z71.6) [facility] 11-09-2023 Evaluation note* Encounter Date Diagnosis [...] Oct, Flu vaccine need (ICD-10 - Z23) [facility] 10-26-2023 Evaluation note* Encounter Date Diagnosis [...] Sep, Overweight (BMI 25.0-29.9) (ICD-10 - E66.3) [facility] 10-19-2023 Evaluation note* Encounter Date Diagnosis Assessment Notes Treatment Notes Treatment Clinical Notes Sep, Migraine (ICD-10 - G43.909) [facility] 09-28-2023 Evaluation note* Encounter Date Diagnosis Assessment Notes Treatment Notes Treatment Clinical Notes Aug, Bilateral acute otitis media (ICD-10 - H66.93) [facility] 09-20-2023 Evaluation note* Encounter Date Diagnosis Assessment Notes Treatment Notes Treatment Clinical Notes Aug, Hyperlipidemia (ICD-10 - E78.5) Aug, Pre-diabetes (ICD-10 - R73.09) Aug, Other fatigue (ICD-1 0 - R53.83) [facility] 08-03-2023 Evaluation note* Encounter Date Diagnosis Assessment Notes Treatment Notes Treatment Clinical Notes Jul, Cervical pain (neck) (ICD-10 - M54.2) Jul, Migraine (ICD-10 - G43.909) [facility] 03-28-2023 Evaluation note* Encounter Date Diagnosis Assessment Notes Treatment Notes Treatment Clinical Notes Jan, Migraine (ICD-10 - G43.909) Jan, Insomnia (ICD-10 - G47.00) [facility] 03-01-2023 Evaluation note* Encounter Date Diagnosis [...] Jan, Tobacco abuse (ICD-1 0 - Z72.0) [facility] 11-18-2022 Evaluation note* Encounter Date Diagnosis [...] Oct, Tobacco abuse (ICD-1 0 - Z72.0) [facility] 10-17-2022 Evaluation note* Encounter Date Diagnosis Assessment Notes Treatment Notes Treatment Clinical Notes Sep, Migraine (ICD-10 - G43.909) [facility] 10-07-2022 Evaluation note* Encounter Date Diagnosis [...] Sep, Tobacco abuse (ICD-1 0 - Z72.0) [facility] 08-11-2022 Evaluation note* Encounter Date Diagnosis Assessment Notes Treatment Notes Treatment Clinical Notes Jul, Hyperlipidemia (ICD-10 - E78.5) Jul, Cervical pain (neck) (ICD-10 - M54.2) [facility] 06-16-2022 Evaluation note* Encounter Date Diagnosis [...] help her. Patient is agreeable. Referral initiated. [facility] 04-12-2022 Evaluation note* Encounter Date Diagnosis Assessment Notes Treatment Notes Treatment Clinical Notes Mar, Migraine (ICD-10 - G43.909) [facility] 03-10-2022 Evaluation note* Encounter Date Diagnosis [...] white blood cell count (ICD-10 - D72.829) Jan, Fatigue (ICD-10 - R53.83) [facility] 02-28-2022 Evaluation note* Encounter Date Diagnosis Assessment Notes Treatment Notes Treatment Clinical Notes Jan, Hyperlipidemia (ICD-10 - E78.5) [facility] 01-12-2022 Evaluation note* Encounter Date Diagnosis Assessment Notes Treatment Notes Treatment Clinical Notes Dec, Hyperlipidemia (ICD-10 - E78.5) [facility] 08-09-2019 History general Narrative - Reported* Type Description Date Medical History migraine Medical History 07/10/2019 EKG Surgical History Thoracic Outlet Surgery 2006 Surgical History Hernia surgery rt groin 2007 Hospitalization History see surgical hx Hospitalization History child 2018 [facility] [employer] noteNo InformationNort [employer] Other Evaluation note* Diagnosis Dysfunction of both eustachian tubes- Primary Dysfunction of Eustachian tube [facility] Well woman exam with routine gynecological exam Routine gynecological examination Urinary tract infection without hematuria, site unspecified Yeast infection Vaginal discharge Leukorrhea, not specified as infective Irregular periods/menstrual cycles documented in this encounter [facility]* Diagnosis Boils Carbuncle and furuncle of unspecified site Encounter for surveillance of other contraceptive Consultation for sterilization Other general counseling and advice for contraceptive management Urinary tract infection without hematuria, site unspecified Menorrhagia with regular cycle documented in this encounter [facility] HealthcareEvaluation note* Diagnosis Pre-op evaluation Request for sterilization Menorrhagia with regular cycle Abnormal uterine bleeding (AUB) Pelvic pain in female Unspecified symptom associated with female genital organs documented in this encounter [facility] Reason for Referral Reason 07/17/22 @ 2:30pm consult and treat Diagnosis 1 BMI 34.0-34.9,adult (Z68.34) Referral Organization [facility] Referring Provider First Name Tavon Referring Provider Last Name Juan Carlos Referring Provider Specialty Family Prac mady Referred Organization [facility] Referred Provider Souleymane Bolton Referred Address [address],[place], [place],[address] Referred Provider Specialty Internal Med icine Referral Priority Routine Referral Appointment Date 2022-07-17 General Notes Miriam Vo 022 02:28:37 PM >Received today and sent P2P Miriam Vo 05/23/2022 12:35:02 PM >Patient has been scheduled [...] ear fullness, throbbing Has taken 2 Z-Packs Reason Comments Gynecologic Exam Reason Comments Cyst Contraception Reason Comments Pre-op Visit Endometrial Biopsy INFORMATION SOURCE (unrecogn ized section and content) DATE CREATED AUTHOR 12/12/2022 [facility] DATE CREATED AUTHOR AUTHOR'S ORGANIZ ATION 03/23/2024 [facility] DATE CREATED AUTHOR AUTHOR'S ORGANIZ ATION 12/26/2024 [facility] DATE CREATED AUTHOR AUTHOR'S ORGANIZ ATION 01/01/2025 [facility] EPIC Source Comments (unrecognize d section and content) In the event this informatio n is protected by the Federal Confidentiality of Alcohol and Drug Abuse Patient Records regulations: The Federal rules restrict any use of the information to criminally investigate or prosecute any alcohol or drug abuse patient.[facility] the event this information is protected by the Federal Confidentiality of Alcohol and Drug Abuse Patient Records regulations: The Federal rules restrict any use of the information to criminally investigate or prosecute any alcohol or drug abuse patient.[facility] Care Teams (unrecognized sec tion and content) Senior Medical Director Relationship Specialty Start Date End Date Tavon Rangel MD [address] [phone] PCP - General 10/01/23 Senior Medical Director Relationship Specialty Start Date End Date Tavon Rangel MD [address] [phone] PCP - General 10/01/23 Senior Medical Director Relationship Specialty Start Date End Date Tavon Rangel MD [address] [place] [phone] PCP - General 10/01/23 Senior Medical Director Relationship Specialty Start Date End Date Tavon Rangel MD [address] [place] [facility] [address] PCP - General 10/01/23 Senior Medical Director Relationship Specialty Start Date End Date Tavon Rangel MD [address] [place] [phone] PCP - General 10/01/23 Senior Medical Director Relationship Specialty Start Date End Date Tavon Rangel MD [address] [place] [phone] PCP - General 10/01/23 Senior Medical Director Relationship Specialty Start Date End Date Tavon Rangel MD [facility] [place] [address] PCP - General 10/01/23 FOR RECORDS PERTAINING TO PATIENTS WHO ARE [...] BE BASED ON THE PRIMARY CLINICAL RECORDS. [facility]. provides no warranty or guarantee of the accuracy or completeness of information in this document.
== END 2024-12-23 15:40 | disposition home or self-care (01) ==
LOC: LAB 15:39
PROVIDERS: PCP Family Medicine; Visit Provider Obstetrics & Gynecology
DX: N92.0 Excessive and frequent menstruation with regular cycle (principal); N93.9 Abnormal uterine and vaginal bleeding, unspecified; R10.2 Pelvic and perineal pain
CPT/HCPCS: 88305

== ENCOUNTER 2025-01-11 13:20 | Outpatient (OUT) | payer OTHER, SELFPAY ==
--- OUTSIDE RECORDS SUMMARY | 2025-01-11 13:31 | XMS_ITS | CCD ---
Author Organization [facility] Care Team Providers Care Boxing Trainer Name Role Phone Tavon Rangel Unavailable Souleymane Bolton Unavailable DR VANDANA ALCARAZ Admitting Unavailable KIERAN, DR ROSS Attending Unavailable DR VANDANA ALCARAZ Primary Care Unavailable KIERAN, DR ROSS Consulting Unavailable Unavailable Primary Care Provider UnavailJESSICA Wei Attending Unavailable Unavailable Primary Care Provider UnavailTavon Villarreal MD Primary Care Provider [phone] Vandana Alcaraz Attending Unavailable Vandana Alcaraz Admitting [...] Allergy 02-04-20 15 hives and vomiting [facility] Repository (20 sources) Morphine; Translations: [MORPHINE] Drug Allergy 03-28-20 07 Hives, Shortness of breath, Itching, Rash Work Phone: (20 sources) Penicillin Drug Allergy hives [employer] [facility] [place] Other (20 sources) rosuvastatin Drug Allergy 12-13-19 22 Headache/nause a [facility] [place] Other (20 sources) Sulfacetamide Drug Allergy hives [facility] Other (1 source) Morphine Drug Allergy 02-04-20 15 [facility] Repository (2 sources) Penicillins; Translations: [PENICILLINS] Drug allergy (disorder) 05-02-20 06 [facility] Repository (1 source) Sulfonamides (Antibiotic) Drug allergy (disorder) 02-04-20 15 [facility] Repository (1 source) Morphine Drug Allergy hives and can't breathe [employer] Other (2 sources) Penicillins Propensity to adverse reactions 05-02-20 06 Rash (13 sources) Sulfonamides (Antibiotic); Translations: [SULFA (SULFONAMIDE ANTIBIOTICS)] Propensity to adverse reactions 08-31-20 03 Rash, Hives, Itching Work Phone: (10 sources) HYDROcodone Drug Allergy 10-01-20 23 Rash [facility] Work Phone: (10 sources) Penicillin G Drug Allergy 10-01-20 23 Rash [facility] (9 sources) Acetaminophen / HYDROcodone Drug Allergy 10-06-20 [facility] (9 sources) Penicillins Drug Intolerance 05-02-20 06 Hives, Itching, Rash [facility] Healthcare (1 source) Acetaminophen Drug Allergy 10-12-20 [facility] Repository (1 source) HYDROcodone Drug Allergy 10-12-20 [facility] Repository (1 source) Morphine Drug Allergy 10-12-20 [facility] Repository (1 source) Penicillins Drug allergy (disorder) 10-12-20 [facility] Repository (1 source) rosuvastatin Drug Allergy 10-12-20 [facility] Repository (1 source) Sulfacetamide Drug Allergy 10-12-20 [facility] Repository Medications Current Medications Medication Drug Class(es) [...] Start: 02-08-2022 take 2 tablets by mo [facility] once daily, then take 1 tablet [...] time 12/07/2024 Discontinued 21 day ethinyl estradiol 0.288760 mg/hr / etonogestrel 0.005 mg/hr vaginal system [...] Interpretation and review of laboratory results Abnormal [facility] Preg Test, Ur Negative Negative [facility] ALL CBC WITH AUTO DIFFon BASOPHILS ABSOLUTE AUTO 0.1 [facility] Basophils/100 WBC (Bld) 0.8 % 0.2 - 2.0 % [facility] Eosinophils/100 WBC (Bld) 3.5 % 0.9 - 7.0 % [facility] Erythrocyte distribution width (RBC) [Ratio] 12 % 11.0 - 15.0 % [facility] Hematocrit (Bld) [Volume fraction] 43.4 % 36.0 - 48.0 % [facility] Hem[facility] (Bld) [Mass/Vol] 14.3 g/dL 12.0 - 16.0 g/dL [facility] IMMATURE GRANULOCYTES ABS AUTO 0.02 [facility] Immature granulocytes/100 WBC (Bld) 0.3 % 0.0 - 0.5 % [facility] LYMPHOCYTES ABSOLUTE AUTO 1.8 [facility] Lymphocytes/100 WBC (Bld) 26 % 20.5 - 60.0 % [facility] MCH (RBC) [Entitic mass] 30.6 pg 26.7 - 34.0 pg [facility] MCHC (RBC) [Mass/Vol] 32.9 g/dL 29.9 - 35.2 g/dL [facility] MCV (RBC) [Entitic vol] 92.7 fL 81.0 - 99.0 fL [facility] MONOCYTES ABSOLUTE AUTO 0.4 [facility] Monocytes/100 WBC (Bld) 6.2 % 1.7 - 12.0 % [facility] NEUTROPHILS ABSOLUTE AUTO 4.5 [facility] Neutrophils/100 WBC (Bld) 63.2 % 43.0 - 75.0 % [facility] Platelet mean volume (Bld) [Entitic vol] 9.7 fL 9.5 - 13.5 fL [facility] EO # 0.3 [facility] PLT 230 [facility] TB RBC 4.68 [facility] TBH WBC 7.1 [facility] US PELVIC COMPLETE W/ TVon 0 [...] II, MD, PHD at 31-Dec-2024 08:44:02 AM [facility] pic5 Normal Not Available Comment on above: Order Comment: US PE LVIS-TRANSVAG IF INDICATED Patient's last menstrual period was 11/11/2024. IGP,APTIMA HPV,AGE GDLNon AGE GDLN ACOG TESTING Note . [facility] Comment on above: TESTS RESULT FLAG [facility] REF RANGE LAB Clinician Provided Cytology Information Source.............Cervix;Endocervix No. of containers..01 ThinPrep Vial Age Algo ACOG Mariely... FLAG LEGEND: L-Low Normal,H-High Normal,LL-Alert Low,HH-Alert High <-Panic Low,>-Panic High,A-Abnormal,AA-Critical Abnormal Performed at: 01 =G [facility] [id number] Meg Slade MD, HPV APTIMA Negative Negative [facility] Comment on above: This nucleic acid am plification test detects fourteen high- risk HPV types (16,18,31,33,35,39,45,51,52,56,58,59,66,68) without differentiation. Performed at: =[facility] [id number] Chief Technician X Ray: Meg Slade MD, Phone: [phone] Performed at: - PT [facility] [address] [id number] Chief Technician X Ray: Meg Slade MD, Phone: [phone] IGP, APTIMA HPV, RFX 16/18,45 Note . [facility] Comment on above: TESTS RESULT FLAG [facility] REF RANGE LAB DIAGNOSIS: 02 NEGATIVE FOR INTRAEPITHELIAL LESION OR MALIGNANCY. Specimen adequacy: 02 Satisfactory for evaluation. Endocervical and/or squamous metaplastic cells (endocervical component) are present. Performed by: 02 Mila Ferguson, Relay Associate ([facility]) . 02 Note: Note 02 The Pap [...] Low,>-Panic High,A-Abnormal,AA-Critical Abnormal Performed at: [address] [facility] [place] [address] Meg Slade MD, BRUSH-SPATULA CERVIX ENDOCERVIX [facility] Healthcar e RECURRENT VAGINITIS (HTRX)on 10-07-2024 [facility] ATOPOBIUM VAGINAE Not detected [facility] BVAB 2,3 (BACTERIAL VAGINOSIS ASSOCIATED BACTERIA 2, 3); MOBILUNCUS SPP 0 [facility] BVAB 2,3 (BACTERIAL VAGINOSIS ASSOCIATED BACTERIA 2, 3); MOBILUNCUS SPP Not detected [facility] MONTY ALBICANS, PARAPSILOSIS, TROPICALIS 0 [facility] Healthcare MONTY ALBICANS, PARAPSILOSIS, TROPICALIS Not detected [facility] Healthcare MONTY GLABRATA 0 [facility] MONTY GLABRATA Not detected [facility] MONTY KRUSEI 0 [facility] Healt hcare MONTY KRUSEI Not detected [facility] CHLAMYDIA TRACHOMATIS 0 [facility] CHLAMYDIA TRACHOMATIS Not detected [facility] GARDNERELLA VAGINALIS 24.749 Abnormal [facility] GARDNERELLA VAGINALIS Detected Abnormal [facility] Interpretation and review of laboratory results Abnormal [facility] MEGASPHAERA (TYPES 1, 2) 18.836 Abnormal [facility] MEGASPHAERA (TYPES 1, 2) Detected Abnormal [facility] MYCOPLASMA GENITALIUM 0 [facility] MYCOPLASMA GENITALIUM Not detected [facility] NEISSERIA GONORRHOEAE 0 [facility] NEISSERIA GONORRHOEAE Not detected [facility] TRICHOMONAS VAGINALIS 0 [facility] TRICHOMONAS VAGINALIS Not detected [facility] Urinalysis macro (dipstick) panel (U)on 10-06-2024 Bilirubin, UA Negative Negative - 4(70) +++ mg/dL [facility] Blood, UA Negative Negative - 50 Thomas/mcL [facility] Clarity, UA Clear [facility] re Color, UA Yellow [facility] Healthcar e Glucose, UA Negative Negative - 1999(110) ++++ mg/dL [facility] Interpretation and review of laboratory results Abnormal [facility] Ketones, UA Negative Negative - 160(16) ++++ mg/dL [facility] Leukocytes, UA Trace Negative - 500+++ Robert/mcL [facility] Nitrite, UA Negative Negative - Positive [facility] pH, UA 7 5 - 9 [facility] Healthcar e Protein, UA Negative Negative - 1999(20) ++++ mg/dL [facility] Spec Grav, UA 1.015 1 - 1.03 [facility] Urobilinogen, UA 0.2 0.2 - 12 mg/dL [facility] A1C with Estimated Average G shonda 04-07-2024 Glucose [Mass/Vol] 108 mg/dL Normal [facility] Comment on above: Order Comment: Reaso n for Exam Prediabetes Result Comment: PERF ORMED BY: [place] [address] PATHOLOGIST DENTIST TRU DUNCAN M.D. Performed By: #### A 1C [facility] eA #### [address] HbA1c (Bld) [Mass fraction] 5.4 % Normal 4.3-5.6 [facility] Comment on above: Order Comment: Reaso n for Exam Prediabetes Result Comment: Incr eased risk for diabetes: 5.7 - 6.4 diabetes: >6.4 glycemic control for adults with diabetes: <7.0 Performed By: #### A 1C [facility] eA #### [address] Comprehensive Metabolic Pane tomi 04-07-2024 Albumin [Mass/Vol] 4.4 g/dL Normal 3.5-5.7 [facility] Comment on above: Order Comment: Reaso n for Exam Hyperlipidemia Performed By: #### C MP, LIPID #### [address] Albumin/Globulin [Mass ratio] 1.8 {ratio} Normal [facility] Comment on above: Order Comment: Reaso n for Exam Hyperlipidemia Performed By: #### C MP, LIPID #### [address] ALP [Catalytic activity/Vol] 38 U/L Normal 34-104 [facility] Comment on above: Order Comment: Reaso n for Exam Hyperlipidemia Performed By: #### C MP, LIPID #### [address] ALT [Catalytic activity/Vol] 11 U/L Normal 7-52 [facility] Comment on above: Order Comment: Reaso n for Exam Hyperlipidemia Performed By: #### C MP, LIPID #### [address] Anion gap [Moles/Vol] 12.0 mmol/L Normal 6.0-15.0 [facility] Comment on above: Order Comment: Reaso n for Exam Hyperlipidemia Performed By: #### C MP, LIPID #### [facility] [address] [place] [address] AST [Catalytic activity/Vol] 13 U/L Normal 13-39 [facility] Comment on above: Order Comment: Reaso n for Exam Hyperlipidemia Performed By: #### C MP, LIPID #### [facility] [address] Bilirubin [Mass/Vol] 0.4 mg/dL Normal 0.3-1.0 [facility] Comment on above: Order Comment: Reaso n for Exam Hyperlipidemia Performed By: #### C MP, LIPID #### [facility] [address] [place] [address] [place] Calcium [Mass/Vol] 9.3 mg/dL Normal 8.6-10.3 [facility] Comment on above: Order Comment: Reaso n for Exam Hyperlipidemia Performed By: #### C MP, LIPID #### [facility] [address] [place] [address] [place] Chloride [Moles/Vol] 108 mmol/L High 98-107 [facility] Comment on above: Order Comment: Reaso n for Exam Hyperlipidemia Performed By: #### C MP, LIPID #### [place] [address] [place] CO2 [Moles/Vol] 25.3 mmol/L Normal 21.0-31.0 [facility] Comment on above: Order Comment: Reaso n for Exam Hyperlipidemia Performed By: #### C MP, LIPID #### [facility] [address] [place] [address] [place] Creatinine [Mass/Vol] 0.66 mg/dL Normal 0.60-1.20 [facility] Comment on above: Order Comment: Reaso n for Exam Hyperlipidemia Performed By: #### C MP, LIPID #### [facility] [address] [place] [address] [place] GFR/1.73 sq M.predicted MDRD (S/P/Bld) [Vol rate/Area] mL/min/{1.73_m2} Normal [facility] Comment on above: Order Comment: Reaso n for Exam Hyperlipidemia Performed By: #### C MP, LIPID #### [facility] [address] [place] [address] [place] Globulin (S) [Mass/Vol] 2.5 g/dL Normal [facility] Comment on above: Order Comment: Reaso n for Exam Hyperlipidemia Performed By: #### C MP, LIPID #### [facility] [address] [id number] [place] Glucose [Mass/Vol] 97 mg/dL Normal 70-100 [facility] Comment on above: Order Comment: Reaso n for Exam Hyperlipidemia Result Comment: [facility] Glucose Reference Range is dependent on time and content of last meal. Glucose of more than 200 mg/dL in a nonstressed, ambulatory subject supports the diagnosis of Diabetes Mellitus. ADA recommended reference range Performed By: #### C MP, LIPID #### [facility] [address] [place] [address] [place] Potassium [Moles/Vol] 4.3 mmol/L Normal 3.5-5.1 [facility] Comment on above: Order Comment: Reaso n for Exam Hyperlipidemia Performed By: #### C MP, LIPID #### [facility] [address] [id number] [place] Protein [Mass/Vol] 6.9 g/dL Normal 6.4-8.9 [facility] Comment on above: Order Comment: Reaso n for Exam Hyperlipidemia Performed By: #### C MP, LIPID #### [facility] [address] [id number] [place] Sodium [Moles/Vol] 141 mmol/L Normal 136-145 [facility] Comment on above: Order Comment: Reaso n for Exam Hyperlipidemia Performed By: #### C MP, LIPID #### [facility] [address] [id number] [place] Urea nitrogen [Mass/Vol] 16 mg/dL Normal 7-25 [facility] Comment on above: Order Comment: Reaso n for Exam Hyperlipidemia Performed By: #### C MP, LIPID #### [facility] [address] [id number] [facility] Lipid Panelon 04-07-2024 Cholesterol [Mass/Vol] 166 mg/dL Normal 140-200 [facility] Comment on above: Order Comment: Reaso n for Exam Hyperlipidemia Result Comment: Chol less than 200 mg/dl low risk Chol 201-239 mg/dl borderline risk Chol 240 mg/dl and greater high risk Performed By: #### C MP, LIPID #### [facility] [address] Cholesterol in HDL [Mass/Vol] 59 mg/dL Normal 23-92 [facility] Comment on above: Order Comment: Reaso n for Exam Hyperlipidemia Result Comment: HDL CHOL ATP-III CLASSIFICATION Cardiovascular Risk HDL > or equal to 60 mg/dL LOW HDL < 40 mg/dL HIGH Performed By: #### C MP, LIPID #### [facility] [address] Cholesterol.total/Ch olesterol in HDL [Mass ratio] 2.8 {ratio} Normal <5.0 [facility] Comment on above: Order Comment: Reaso n for Exam Hyperlipidemia Result Comment: PERF ORMED BY: [place] [address] PATHOLOGIST DENTIST TRU DUNCAN M.D. Performed By: #### C MP, LIPID #### [facility] [address] LDL Cholesterol,Calculat ed 95 mg/dL Normal 0-100 [facility] Comment on above: Order Comment: Reaso n for Exam Hyperlipidemia Result Comment: LDL ATP III CLASSIFICATION LDL less than 100 mg/dL Optimal LDL 100-129 mg/dL Near or above optimal LDL 130-159 mg/dL Borderline high LDL 160-189 mg/dL High LDL greater than 189 mg/dL Very high Performed By: #### C MP, LIPID #### [facility] [address] [place] [id number] [place] Triglyceride w/Reflex 59 mg/dL Normal 0-149 [facility] Comment on above: Order Comment: Reaso n for Exam Hyperlipidemia Result Comment: TRIG ATP III CLASSIFICATION TRIG less than 150 mg/dL Normal TRIG 150-199 mg/dL Borderline high TRIG 200-500 mg/dL High TRIG greater than 500 mg/dL Very high Standard traceable to the Center for Disease Conrtrol and Prevention (CDC) test method. Performed By: #### C MP, LIPID #### [facility] [address] [id number] [facility] VLDL CHOLESTEROL 11 mg/dL Normal [facility] Comment on above: Order Comment: Kaleb benoit for Exam Hyperlipidemia Performed By: #### C MP, LIPID #### [facility] [address] [place] [address] [facility] CNOVon 03-23-2024 CNOV Office Visit (OTOLCR ) JUSTINO KELLER ([id number]) 1985 F Date Time Provider Department 03/23/24 [...] whose address you want to display, e.g., .AttorneyFeeADDR[1 (where 1 is the provider ID). Communication [...] ear infec (more content not included)... [facility] JUST[facility] MONTGOMERY ([id number]) 1985 F Date Time Provider Department 03/11/24 [...] medication for infected ears. Pt Phone #: [phone] Pharmacy Name and # : [facility] [phone] Pt last seen: Visit date not found [...] Status:Closed by ASHLEY, BRUCE on 03/13/24 Normal [facility] Cytology Cervical or vaginal smear or scraping studyon 10-01-2023 [facility] PAP ACOG PANEL 2: 30 to 65on 02-13-2022 . . Normal [facility] Comment on above: Result Comment: Perf ormed at: WB Performed By: #### [id number] #### [facility] [address] [address] [address] Lakshmi aH Age Gdln ACOG Testing 30-65 [facility] Comment on above: Performed By: #### [id number] #### [facility] [address] [address] [address] Lakshmi Ha DIAGNOSIS: Comment Normal [facility] Comment on above: Result Comment: NEGA TIVE FOR INTRAEPITHELIAL LESION OR MALIGNANCY. Performed at: WB Performed By: #### [id number] #### [facility] [address] [address] [address] Lakshmi Ha HPV Aptima Negative Normal Negative [facility] Comment on above: Result Comment: This nucleic acid amplification test detects fourteen high-risk HPV types (16,18,31,33,35,39,45,51,52,56,58,59,66,68) without differentiation. Performed at: =G Performed By: #### [id number] #### [facility] [address] [address] [address] Lakshmi Ha Methodology: Comment Normal [facility] Comment on above: Result Comment: This liquid based ThinPrep(R) pap test was screened with the use of an image guided system. Performed at: WB Performed By: #### [id number] #### [facility] [address] [address] [address] Lakshmi Ha Note: Comment Normal [facility] Comment on above: Result Comment: The Pap smear is a screening test designed to aid in the detection of premalignant and malignant conditions of the uterine cervix. It is not a diagnostic procedure and should not be used as the sole means of detecting cervical cancer. Both false-positive and false-negative reports do occur. . Performed at: WB Performed By: #### [id number] #### [facility] [address] [address] [address] Lakshmi Ha Performed by: Comment Normal [facility] Comment on above: Result Comment: Courtney Jacques, Relay Associate (ASCP) Performed at: WB Performed By: #### [id number] #### [facility] [address] [address] [address] Lakshmi Ha Specimen adequacy: Comment Normal [facility] Comment on above: Result Comment: Sati sfactory for evaluation. Endocervical and/or squamous metaplastic cells (endocervical component) are present. Performed at: WB Performed By: #### [id number] #### [facility] [address] [address] [address] Lakshmi Ha Vital Signs Date Time Vital Sign Value Performing Clinician Facility 12-23-2024 15:21-0500 Body mass index (BMI) [Ratio] 29.19 kg/m2 [employer] Work Phone: [facility] 12-23-2024 15:21-0500 Body weight 87.09 kg Leroy Brothers DO Work Phone: [facility] 12-23-2024 15:21-0500 Diastolic blood pressure 72 mm[Hg] Vandana Kieran DO Work Phone: [facility] 12-23-2024 15:21-0500 Systolic blood pressure 120 mm[Hg] Eland Kieran DO Work Phone: [facility] 12-07-2024 10:26-0500 Body mass index (BMI) [Ratio] 30.23 kg/m2 Vandana Kieran DO Work Phone: [facility] 12-07-2024 10:26-0500 Body weight 90.17 kg Leroy Brothers DO Work Phone: [facility] 12-07-2024 10:26-0500 Diastolic blood pressure 60 mm[Hg] Vandana Kieran DO Work Phone: [facility] 12-07-2024 10:26-0500 Systolic blood pressure 118 mm[Hg] Vandana Kieran DO Work Phone: [facility] 10-06-2024 10:14-0500 Body mass index (BMI) [Ratio] 28.89 kg/m2 Vandana Kieran DO Work Phone: [facility] 10-06-2024 10:14-0500 Body weight 86.18 kg Vandana Kieran DO Work Phone: [facility] 10-06-2024 10:14-0500 Diastolic blood pressure 72 mm[Hg] Vandana Kieran DO Work Phone: [facility] 10-06-2024 10:14-0500 Systolic blood pressure 112 mm[Hg] Vandana Kieran DO Work Phone: [facility] 12-04-2023 14:30-0500 Body height 172.72 cm Souleymane Bolton Other [employer] Other 12-04-2023 14:30-0500 Body mass index (BMI) [Ratio] 27.61 kg/m2 Souleymane Bolton Other [employer] Other 12-04-2023 14:30-0500 Body weight 82.37 kg Souleymane Bolton Other [employer] Other 12-04-2023 14:30-0500 Diastolic blood pressure 54 mm[Hg] Souleymane Bolton Other [employer] Other 12-04-2023 14:30-0500 Respiratory rate 18 /min Souleymane Bolton Other [employer] Other 12-04-2023 14:30-0500 SaO2% (BldA) [Mass fraction] 96 % Souleymane Bolton Other [employer] Other 12-04-2023 14:30-0500 Systolic blood pressure 91 mm[Hg] Souleymane Bolton Other [employer] Other 10-10-2023 14:15-0500 Body height 172.72 cm Tavon Rangel Other [employer] Other 10-10-2023 14:15-0500 Body mass index (BMI) [Ratio] 26.45 kg/m2 Tavon Rangel Other [employer] Other 10-10-2023 14:15-0500 Body weight 78.93 kg Tavon Rangel Other [employer] Other 10-10-2023 14:15-0500 Diastolic blood pressure 62 mm[Hg] Tavon Rangel Other [employer] Other 10-10-2023 14:15-0500 Respiratory rate 18 /min Tavon Rangel Other [employer] Other 10-10-2023 14:15-0500 SaO2% (BldA) [Mass fraction] 97 % Tavon Rangel Other [employer] Other 10-10-2023 14:15-0500 Systolic blood pressure 92 mm[Hg] Tavon Rangel Other [employer] Other 09-26-2023 14:45-0400 Body height 172.72 cm Souleymane Bolton Other [employer] Other 09-26-2023 14:45-0400 Body mass index (BMI) [Ratio] 26.91 kg/m2 Souleymane Montenegrodiff Other [employer] Other 09-26-2023 14:45-0400 Body weight 80.29 kg Souleymane Montenegrodiff Other [employer] Other 09-26-2023 14:45-0400 Diastolic blood pressure 59 mm[Hg] Souleymane Montenegrodiff Other [employer] Other 09-26-2023 14:45-0400 Respiratory rate 18 /min Souleymane Montenegrodiff Other [employer] Other 09-26-2023 14:45-0400 SaO2% (BldA) [Mass fraction] 100 % Souleymane Montenegrodiff Other [employer] Other 09-26-2023 14:45-0400 Systolic blood pressure 93 mm[Hg] Souleymane Montenegrodiff Other [employer] Other 01-30-2023 16:30-0500 Body height 172.72 cm Souleymane Montenegrodiff Other [facility] Other 01-30-2023 16:30-0500 Body mass index (BMI) [Ratio] 31.18 kg/m2 Souleymane Montenegrodiff Other [facility] Other 01-30-2023 16:30-0500 Body weight 93.03 kg Souleymane Montenegrodiff Other [facility] Other 01-30-2023 16:30-0500 Diastolic blood pressure 66 mm[Hg] Souleymane Bolton Other [employer] Other 01-30-2023 16:30-0500 Respiratory rate 18 /min Souleymane Bolton Other [facility] Other 01-30-2023 16:30-0500 SaO2% (BldA) [Mass fraction] 96 % Souleymane Bolton Other [facility] Other 01-30-2023 16:30-0500 Systolic blood pressure 95 mm[Hg] Souleymane Bolton Other [employer] Other 10-19-2022 10:45-0500 Body height 172.72 cm Souleymane Bolton Other [employer] Other 10-19-2022 10:45-0500 Body mass index (BMI) [Ratio] 31.93 kg/m2 Souleymane Bolton Other [facility] Other 10-19-2022 10:45-0500 Body weight 95.26 kg Souleymane Bolton Other [facility] Other 10-19-2022 10:45-0500 Diastolic blood pressure 67 mm[Hg] Souleymane Bolton Other [employer] Other 10-19-2022 10:45-0500 Respiratory rate 18 /min Souleymane Bolton Other [employer] Other 10-19-2022 10:45-0500 SaO2% (BldA) [Mass fraction] 99 % Souleymane Montenegrodiff Other [employer] Other 10-19-2022 10:45-0500 Systolic blood pressure 110 mm[Hg] Souleymane Bolton Other [facility] Other 09-07-2022 10:45-0400 Body height 172.72 cm Souleymane Bolton Other [facility] Other 09-07-2022 10:45-0400 Body mass index (BMI) [Ratio] 33.26 kg/m2 Souleymane Montenegrodiff Other [facility] Other 09-07-2022 10:45-0400 Body weight 99.25 kg Souleymane Bolton Other [facility] Other 09-07-2022 10:45-0400 Diastolic blood pressure 69 mm[Hg] Souleymane Montenegrodiff Other [facility] Other 09-07-2022 10:45-0400 Respiratory rate 18 /min Souleymane Bolton Other [employer] Other 09-07-2022 10:45-0400 SaO2% (BldA) [Mass fraction] 98 % Souleymane Montenegrodiff Other [employer] Other 09-07-2022 10:45-0400 Systolic blood pressure 109 mm[Hg] Souleymane Montenegrodiff Other [employer] Other 05-17-2022 13:30-0400 Body height 172.72 cm Tavon Rangel Other [employer] Other 05-17-2022 13:30-0400 Body mass index (BMI) [Ratio] 34.82 kg/m2 Tavon Rangel Other [facility] Other 05-17-2022 13:30-0400 Body weight 103.87 kg Tavoncharity Mccauleyjose l Other [employer] Other 05-17-2022 13:30-0400 Diastolic blood pressure 60 mm[Hg] Tavon Rangel Other [employer] Other 05-17-2022 13:30-0400 Respiratory rate 16 /min Tavon Rangel Other [employer] Other 05-17-2022 13:30-0400 SaO2% (BldA) [Mass fraction] 97 % Tavon Rangel Other [facility] Other 05-17-2022 13:30-0400 Systolic blood pressure 102 mm[Hg] Tavon Rangel Other [employer] Other 02-08-2022 12:30-0500 Body height 172.72 cm Tavon Rangel Other [facility] Other 02-08-2022 12:30-0500 Body mass index (BMI) [Ratio] 34.66 kg/m2 Tavon Rangel Other [facility] Other 02-08-2022 12:30-0500 Body weight 103.42 kg Tavon Rangel Other [facility] Other 02-08-2022 12:30-0500 Diastolic blood pressure 66 mm[Hg] Tavon Rangel Other [employer] Other 02-08-2022 12:30-0500 Respiratory rate 16 /min Tavon Rangel Other [employer] Other 02-08-2022 12:30-0500 SaO2% (BldA) [Mass fraction] 98 % Tavon Rangel Other [facility] Other 02-08-2022 12:30-0500 Systolic blood pressure 120 mm[Hg] Tavon Mccauleyjose l Other [employer] Other Encounters Encounter Date Encounter Type Care Provider Facility Start: 12-30-2024 End: 12-30-2024 ambulatory VANDANA KIERAN Not Available Start: 12-23-2024 End: 12-23-2024 Patient encounter procedure Vandana Kieran DO Work Phone: [facility] Comment on above: Pre-op evaluation; Request for sterilization; Menorrhagia with regular cycle; Abnormal uterine bleeding (AUB); Pelvic pain in female Start: 12-23-2024 End: 12-23-2024 Preprocedural examination done Vandana Kieran DO Work Phone: [facility] Start: 12-23-2024 End: 12-23-2024 ambulatory Vandana Kieran Facility:[facility] Start: 12-08-2024 End: 12-08-2024 Clinisync Result Encounter [...] 15 minutes Vandana Kieran DO Work Phone: [facility] Comment on above: Boils; Encounter for surveillance of other contraceptive; Consultation for sterilization; Urinary tract infection without hematuria, site unspecified; Menorrhagia with regular cycle Start: 12-07-2024 End: 12-07-2024 ambulatory VANDANA KIERAN Not Available Start: 10-06-2024 End: 10-06-2024 Bamboo flowsheet Vandana Kieran DO Work Phone: [facility] Start: 10-06-2024 End: 10-15-2024 Bamboo flowsheet Vandana Kieran DO Work Phone: [facility] Start: 10-06-2024 End: 10-15-2024 Clinisync Result Encounter Vandana Kieran DO Work Phone: [facility] External Department Unsolicited Start: 10-06-2024 End: 10-07-2024 External Result Encounter Vandana Kieran DO Work Phone: [facility] External Department Unsolicited Start: 10-06-2024 End: 10-06-2024 Patient encounter procedure Vandana Kieran DO Work Phone: [facility] Start: 10-06-2024 End: 10-06-2024 Periodic preventive med est patient 18-39 yrs Vandana Kieran DO Work Phone: [facility] Comment on above: Well woman exam with routine gynecological exam; Urinary tract infection without hematuria, site unspecified; Yeast infection; Vaginal discharge; Irregular periods/menstrual cycles Start: 10-06-2024 End: 10-06-2024 ambulatory VANDANA KIERAN Not Available Start: 04-07-2024 End: 04-07-2024 ambulatory Tavon Rangel Facility:[facility] Start: 03-23-2024 End: 03-23-2024 ambulatory JESSICA CEDILLO Facility:[facility] Start: 03-23-2024 End: 03-23-2024 Patient encounter procedure Jessica Cedillo PA-C Work Phone: Otolaryngology Comment on above: Dysfunction of both eustachian tubes (Primary Dx) Start: 03-11-2024 Telephone encounter Shun Skinner MD Work Phone: Otolaryngology Comment on above: Medication Problem Start: 12-17-2023 End: 12-17-2023 ambulatory Tavon Rangel Other [employer] Other Start: 12-17-2023 Telephone encounter Tavon Juan Carlos [facility] Start: 12-10-2023 End: 12-10-2023 ambulatory Tavon Garrickjose l Other [facility] Other Start: 12-10-2023 Telephone encounter Tavon Rangel [facility] Start: 12-04-2023 End: 12-04-2023 ambulatory Souleymane Bolton Other [employer] Other Start: 12-04-2023 Follow-up encounter Souleymane srinivasan [facility] Start: 11-27-2023 End: 11-27-2023 ambulatory Tavon Rangel Other [facility] Other Start: 11-27-2023 Telephone encounter Tavon Juan Carlos [facility] Start: 11-05-2023 End: 11-05-2023 ambulatory Souleymane Bolton Other [facility] Other Start: 11-05-2023 Telephone encounter Souleymane srinivasan [facility] Start: 10-31-2023 End: 10-31-2023 ambulatory Tavon Rangel Other [facility] Other Start: 10-31-2023 Telephone encounter Tavon Juan Carlos [facility] Start: 10-10-2023 End: 10-10-2023 ambulatory Tavon Mccauleyjose l Other [facility] Other Start: 10-10-2023 Encounter for genera l adult medical examination without abnormal findings Tavon Rangel [facility] [place] Start: 10-10-2023 Periodic preventive med est patient 18-39 yrs Tavon Rangel [facility] [place] Start: 09-26-2023 End: 09-26-2023 ambulatory Souleymane Bolton Other [facility] Other Start: 09-26-2023 Follow-up encounter Souleymane srinivasan [facility] Start: 09-19-2023 End: 09-19-2023 ambulatory Tavon Rangel Other [facility] Other Start: 09-19-2023 Telephone encounter Tavon Rangel [facility] [place] Start: 08-29-2023 End: 08-29-2023 ambulatory Tavon Garrickjose l Other [facility] Other Start: 08-29-2023 Telephone encounter Tavon Rangel [facility] [place] Start: 08-21-2023 End: 08-21-2023 ambulatory Tavon Garrickjose l Other [facility] Other Start: 08-21-2023 Telephone encounter Tavon Rangel [facility] [place] Start: 07-04-2023 End: 07-04-2023 ambulatory Tavon Garrickjose l Other [facility] Other Start: 07-04-2023 Telephone encounter Tavon Rangel [facility] [place] Start: 02-26-2023 End: 02-26-2023 ambulatory Tavoncharity Rangel Other [facility] Other Start: 02-26-2023 Telephone encounter Tavon Rangel [facility] [place] Start: 01-30-2023 End: 01-30-2023 ambulatory Souleymane Bolton Other [facility] Other Start: 01-30-2023 Follow-up encounter Souleymane srinivasan [facility] Start: 10-19-2022 End: 10-19-2022 ambulatory Souleymane Bolton Other [facility] Other Start: 10-19-2022 Follow-up encounter Souleymane srinivasan [facility] Start: 09-17-2022 End: 09-17-2022 ambulatory Tavon Rangel Other [employer] Other Start: 09-17-2022 Telephone encounter Tavon Rangel [facility] [place] Start: 09-07-2022 End: 09-07-2022 ambulatory Souleymane Bolton Other [facility] Other Start: 09-07-2022 Follow-up encounter Souleymane srinivasan [facility] Start: 07-26-2022 End: 07-26-2022 ambulatory Souleymane Bolton Other [facility] Other Start: 07-26-2022 Telephone encounter Souleymane srinivasan [facility] Start: 07-18-2022 End: 07-18-2022 ambulatory Souleymane Bolton Other [facility] Other Start: 07-18-2022 Telephone encounter Souleymane Ortiz [facility] Start: 07-12-2022 End: 07-12-2022 ambulatory Tavon Rangel Other [facility] Other Start: 07-12-2022 Telephone encounter Tavon Rangel [facility] [place] Start: 05-17-2022 End: 05-17-2022 ambulatory Tavon Rangel Other [employer] Other Start: 05-17-2022 Office outpatient vi sit 25 minutes Tavon Rangel [facility] Start: 03-13-2022 End: 03-13-2022 ambulatory Tavon Rangel Other [facility] Other Start: 03-13-2022 Telephone encounter Tavon [facility] Start: 02-08-2022 End: 02-08-2022 ambulatory Tavon Rangel Other [employer] Other Start: 02-08-2022 Office outpatient vi sit 25 minutes Tavon Rangel [facility] Start: 02-06-2022 End: 02-06-[address] VANDANA ALCARAZ Facility: Start: 01-29-2022 End: 01-29-2022 ambulatory Tavon Rangel Other [facility] Other Start: 01-29-2022 Telephone encounter Tavon Rangel [facility] Start: 12-13-2021 End: 12-13-2021 ambulatory Tavon Rangel Other [employer] Other Start: 12-13-2021 Telephone encounter Tavon Rangel [facility] Procedures Date Procedure Procedure Detail [...] auto t hin layer prep mnl screen Leroy Brothers DO Work Phone: Plan of Treatment Date Care Activity Detail Author Start: 10-06-2029 Screening for malign ant neoplasm of cervix [facility] Start: 10-01-2028 Screening for malign ant neoplasm of cervix [facility] Start: 10-14-2025 End: 10-14-2025 Patient encounter procedure 10/14/2025 10:00 AM EST Office Visit [facility] [address] [place] [id number] Vandana Alcaraz, DO [address] [place] [address] [facility] Start: 12-30-2024 End: 12-30-2024 Professional / ancillary services management 12/30/2024 1:00 PM EST Ancillary Procedure [facility] [address] [place] [phone] [facility] Start: 12-23-2024 End: 12-23-2024 Patient encounter procedure 12/23/2024 2:30 PM EST Procedure Visit [facility] [address] [place] [id number] Vandana Alcaraz, DO [address] [place] [address] [facility] Start: 12-07-2024 End: 12-07-2025 aPTT in Blood by Coagulation assay APTT Lab Routine Menorrhagia with regular cycle Expected: 12/07/2024 (Approximate), Expires: 12/07/2025 [facility] Comment on above: Expected: 12/07/2024 (Approximate), Expires: [...] EST Office Visit [facility] [address] [place] [address] Vandana Alcaraz DO [address] [place] [address] Arrived [facility] Comment on above: Arrived Start: 08-02-2024 Influenza vaccination [facility] Start: 12-02-2023 Behavioral Health Screening [facility] Screening Start: 08-02-2023 Covid-19 Vaccine ( season) Covid-19 Vaccine ( season) Start: 08-02-2023 Covid-19 Vaccine ( season) Covid-19 Vaccine ( season) Start: 2017 Screening for malign ant neoplasm of cervix Start: 2008 Screening for malign ant neoplasm of cervix Start: 2006 Hepatitis B Vaccine (1 of 3 - 19+ 3-dose series) Hepatitis B Vaccine (1 of 3 - 19+ 3-dose series) Start: 2006 Urine microalbumin profile DTaP,Tdap,Td Vaccine (1 - Tdap) Start: 2005 Hepatitis C screening Hepatitis C Sc reening Start: 2005 HIV screening HIV Screening [facility] CBC W Auto Different ial panel - Blood CBC and differential Lab Routine Menorrhagia with regular cycle Ordered: 12/07/2024 [facility] Work Phone: Comment on above: Ordered: 12/07/2024 CHLAMYDIA TRACHOMATI S (GENITO/STI) CHLAMYDIA TRACHOMATIS (GENITO/STI) Lab Routine Vaginal discharge Ordered: 10/06/2024 [facility] Comment on above: Ordered: 10/06/2024 Cytology Cervical or vaginal smear or scraping study Pap Smear Pathology and Cytology Routine Well woman exam with routine gynecological exam Ordered: 10/06/2024 [facility] Work Phone: Comment on above: Ordered: 10/06/2024 Endometrial biopsy Endometrial b iopsy Procedures Routine Menorrhagia with regular cycle Abnormal uterine bleeding (AUB) Pelvic pain in female Ordered: 12/23/2024 [facility] Work Phone: Comment on above: Ordered: 12/23/2024 hCG, quantitative, hCG, quantitative, Lab Routine Menorrhagia with regular cycle Ordered: 12/07/2024 [facility] Comment on above: Ordered: 12/07/2024 Hemoglobin A1c/Hemoglobin.total in Blood Hemoglobin A1c Lab Routine Menorrhagia with regular cycle Ordered: 12/07/2024 [facility] Comment on above: Ordered: 12/07/2024 Human papilloma viru s DNA [Presence] in Unspecified specimen by Probe with amplification HPV DNA probe, amplified Microbiology Routine Well woman exam with routine gynecological exam Ordered: 10/06/2024 [facility] Comment on above: Ordered: 10/06/2024 Neisseria gonorrhoea e DNA [Presence] in Unspecified specimen by PAMELA with probe detection Neisseria gonorrhea DNA probe, direct Lab Routine Vaginal discharge Ordered: 10/06/2024 [facility] Comment on above: Ordered: 10/06/2024 Prothrombin time (PT ) in Blood by Coagulation assay Protime-INR Lab Routine Menorrhagia with regular cycle Ordered: 12/07/2024 [facility] Comment on above: Ordered: 12/07/2024 SURESWAB(R) ADVANCED VAGINITIS PLUS, TMA SURESWAB(R) ADVANCED VAGINITIS PLUS, TMA Pathology and Cytology Routine Yeast infection Ordered: 10/06/2024 [facility] Comment on above: Ordered: 10/06/2024 Thyrotropin [Units/volume] in Serum or Plasma TSH Lab Routine Menorrhagia with regular cycle Ordered: 12/07/2024 [facility] Comment on above: Ordered: 12/07/2024 Thyroxine (T4) free [Mass/volume] in Serum or Plasma T4, free Lab Routine Menorrhagia with regular cycle Ordered: 12/07/2024 [facility] Comment on above: Ordered: 12/07/2024 Antonio Fuentes tarun Immunizations Immunization Date Immunization Notes Care Provider Brenden melendez 11-10-2024 influenza virus vaccine, unspecified formulation Vandana Alcaraz DO Work Phone: [facility] 10-10-2023 influenza, injectable, quadrivalent, contains preservative Tavon Juan Carlos Other [facility] Other 10-10-2023 influenza virus vaccine, unspecified formulation Vandana Alcaraz DO Work Phone: [facility] 10-12-2021 influenza, seasonal, injectable Tavon Rangel Other [facility] Other 09-29-2021 COVID-19 Vaccine Moderna - Documentation Purposes Only Tavon Juan Carlos Other [facility] Other 08-31-2021 COVID-19 Vaccine Moderna - Documentation Purposes Only Tavon Juan Carlos Other [facility] Other 10-20-2015 influenza, injectable, quadrivalent, contains preservative Tavon Rangel Other [facility] Other NEGATED: Highlighted row has not occurred!02-09-2020 influenza, seasonal, injectable Patient Objection Tavon Rangel Other [facility] Other Payers Date Payer Category Payer Self-pay 2023 Unknown MERE ROSENBERG PPO [id number] 2023-Present [phone] [id number] [place] [address] PPO [id number] 2020 Private Health Insurance [id number] 2020 Unknown [id number] 1987 Unknown [id number] 1987 Unknown [id number] [id number] 1987 Unknown [id number] [id number] 1987 Unknown [id number] [id number] 1987 Unknown [id number] [id number] 1959 Unknown [id number] Unknown [id number] Unknown [id number] Social History Date Type Detail Facility Unknown if ever smoked [facility] Other Start: 03-23-2024 End: 10-06-2024 Sex Assigned At [employer] Other Tobacco smoking status SCIS Tobacco smoking consumption unknown Start: 1985 Sex Assigned At Not on file [facility] Start: 03-23-2024 End: 10-06-2024 History of Social function National Score (1-100), lower number is lower risk 41 Start: 09-30-2023 Tobacco smoking status SCIS Smokes tobacco daily [facility] History of tobacco use Cigarette Smoker [facility] Start: 10-01-2023 End: 12-07-2024 Alcoholic beverage intake Lifetime non-drinker (finding) [facility] Start: 09-30-2023 Alcohol Comment Caffeine intak e: 1-2 cups per day soda, coffee [facility] Start: 1985 Sex assigned at Female N [facility] Start: 09-24-2023 Gender identity Identifies as female gender (finding) [facility] Clinical Notes 07-10-2019 to 12-23-2024 Caterina Floyd - 12/23/2024 2:30 PM Suni Glover, SUPERVISOR [employer] - 12/07/2024 10:20 AM Norma Lundberg LPN [...] on 01/22/[address] Alcaraz at [facility]. MEDICATIONS Current Outpatient Medications Medication Instructions atorvastatin [...] nursing note reviewed. Exam conducted with a pt sitter present. Vitals: Estimated body mass index is [...] reviewed, and patient is to proceed to [facility]. Follow Up: Patient is to follow up between 1-2 weeks post op to assess proper healing and recovery from procedure. Documented by Milagro Lundberg LPN on behalf of: Vandana Alcaraz DO documented in this encounter [facility] 12-07-2024 History of Presen t illness Narrative [...] nursing note reviewed. Exam conducted with a pt sitter present. Vitals: Estimated body mass index is [...] completed childbearing. Patient will discuss surgery with bakery associate and placed on the books. Patient to return to clinic for pre-op appointment. Documented by Alisha Glover LPN on behalf of: Vandana Alcaraz DO documented in this encounter [facility] 10-06-2024 History of Presen t illness Narrative [...] nursing note reviewed. Exam conducted with a pt sitter present. Vitals: Estimated body mass index is [...] Vandana Alcaraz DO documented in this encounter [facility] 03-23-2024 Note HNO ID: [id number] Author: JESSICA CEDILLO PA-C Service: ? Author Type: Physician Workplace Relations Adviser Type: Progress Notes Filed: 03/23/2024 10:05 Note Text: History of Present Illness Ms. JUSTINO KELLER is a 38 year old year old female presenting for: referred by No referring provider defined for this encounter. And is a patient of No primary care provider on file. To use this Smartlink, specify the provider ID whose address you want to display, e.g., .[email or web address] (where 1 is the provider ID). Communication [...] Medical Decision Making Level: 4 - Moderate [facility] 03-23-2024 Instructions Jessica Cedillo PA-C - 03/23/2024 9:55 AM EDT Take the medrol dose pack, stay on the flonase until you feel back to your baseline. If you get to 8 week aleah and you still feel symptoms then reach out, we will schedule a hearing test and then follow-up after documented in this encounter 03-23-2024 History of Presen t illness Narrative [...] 4 - Moderate documented in this encounter 03-12-2024 Miscellaneous Notes Patient called back and [...] medication for infected ears. Pt Phone #: [phone] Pharmacy Name and # : [facility]/ [phone] Pt last seen: Visit date not found April Alvarez documented in this encounter 12-04-2023 Evaluation note Encounter Date Diagnosis Assessment Notes Dec, Prediabetes (ICD-10 - R73.03) Dec, Overweight (BMI 25.0-29.9) (ICD-10 - E66.3) Dec, Mixed hyperlipidemia (ICD-10 - E78.2) Dec, Tobacco abuse (ICD-10 - Z72.0) Dec, GERD (gastroesophageal reflux disease) (ICD-10 - K21.9) Dec, Migraine (ICD-10 - G43.909) Dec, Medication monitoring encounter (ICD-10 - Z51.81) Dec, Metabolic syndrome X (ICD-10 - E88.81) [facility] Other 12-05-2023 Evaluation note* Encounter Date Diagnosis Assessment Notes Treatment Notes Treatment Clinical Notes Nov, Encounter for smoking cessation counseling (ICD-10 - Z71.6) [facility] Other 11-09-2023 Evaluation note* Encounter Date Diagnosis [...] Oct, Flu vaccine need (ICD-10 - Z23) [facility] Other 10-26-2023 Evaluation note* Encounter Date Diagnosis [...] Sep, Overweight (BMI 25.0-29.9) (ICD-10 - E66.3) [facility] Other 10-19-2023 Evaluation note* Encounter Date Diagnosis Assessment Notes Treatment Notes Treatment Clinical Notes Sep, Migraine (ICD-10 - G43.909) [facility] Other 09-28-2023 Evaluation note* Encounter Date Diagnosis Assessment Notes Treatment Notes Treatment Clinical Notes Aug, Bilateral acute otitis media (ICD-10 - H66.93) [facility] Other 09-20-2023 Evaluation note* Encounter Date Diagnosis Assessment Notes Treatment Notes Treatment Clinical Notes Aug, Hyperlipidemia (ICD-10 - E78.5) Aug, Pre-diabetes (ICD-10 - R73.09) Aug, Other fatigue (ICD-1 0 - R53.83) [facility] Other 08-03-2023 Evaluation note* Encounter Date Diagnosis Assessment Notes Treatment Notes Treatment Clinical Notes Jul, Cervical pain (neck) (ICD-10 - M54.2) Jul, Migraine (ICD-10 - G43.909) [facility] Other 03-28-2023 Evaluation note* Encounter Date Diagnosis Assessment Notes Treatment Notes Treatment Clinical Notes Jan, Migraine (ICD-10 - G43.909) Jan, Insomnia (ICD-10 - G47.00) [facility] Other 03-01-2023 Evaluation note* Encounter Date Diagnosis [...] Jan, Tobacco abuse (ICD-1 0 - Z72.0) [facility] Other 11-18-2022 Evaluation note* Encounter Date Diagnosis [...] Oct, Tobacco abuse (ICD-1 0 - Z72.0) [facility] Other 10-17-2022 Evaluation note* Encounter Date Diagnosis Assessment Notes Treatment Notes Treatment Clinical Notes Sep, Migraine (ICD-10 - G43.909) [facility] Other 10-07-2022 Evaluation note* Encounter Date Diagnosis [...] Sep, Tobacco abuse (ICD-1 0 - Z72.0) [employer] Other 08-11-2022 Evaluation note* Encounter Date Diagnosis Assessment Notes Treatment Notes Treatment Clinical Notes Jul, Hyperlipidemia (ICD-10 - E78.5) Jul, Cervical pain (neck) (ICD-10 - M54.2) [facility] Other 06-16-2022 Evaluation note* Encounter Date Diagnosis [...] help her. Patient is agreeable. Referral initiated. [facility] Other 04-12-2022 Evaluation note* Encounter Date Diagnosis Assessment Notes Treatment Notes Treatment Clinical Notes Mar, Migraine (ICD-10 - G43.909) [facility] Other 03-10-2022 Evaluation note* Encounter Date Diagnosis [...] - D72.829) Jan, Fatigue (ICD-10 - R53.83) [facility] Other 02-28-2022 Evaluation note* Encounter Date Diagnosis Assessment Notes Treatment Notes Treatment Clinical Notes Jan, Hyperlipidemia (ICD-10 - E78.5) [facility] Other 01-12-2022 Evaluation note* Encounter Date Diagnosis Assessment Notes Treatment Notes Treatment Clinical Notes Dec, Hyperlipidemia (ICD-10 - E78.5) [facility] Other 08-09-2019 History general Narrative - Reported* Type Description Date Medical History migraine Medical History 07/10/2019 EKG Surgical History Thoracic Outlet Surgery 2006 Surgical History Hernia surgery rt groin 2007 Hospitalization History see surgical hx Hospitalization History child 2018 [employer] Other [employer] Other Evaluation note* Diagnosis Dysfunction of both eustachian tubes- Primary Dysfunction of Eustachian tube documented in this encounter Evaluation note* Diagnosis Well woman exam with routine gynecological exam Routine gynecological examination Urinary tract infection without hematuria, site unspecified Yeast infection Vaginal discharge Leukorrhea, not specified as infective Irregular periods/menstrual cycles documented in this encounter [facility] Healthcare[facility]* Diagnosis Boils Carbuncle and furuncle of unspecified site Encounter for surveillance of other contraceptive Consultation for sterilization Other general counseling and advice for contraceptive management Urinary tract infection without hematuria, site unspecified Menorrhagia with regular cycle documented in this encounter [facility] HealthcareEvaluation note* Diagnosis Pre-op evaluation Request for sterilization Menorrhagia with regular cycle Abnormal uterine bleeding (AUB) Pelvic pain in female Unspecified symptom associated with female genital organs documented in this encounter [facility] Reason for Referral Reason 07/17/22 @ 2:30pm consult and treat Diagnosis 1 BMI 34.0-34.9,adult (Z68.34) Referral Organization [facility] Referring Provider First Name Tavon Referring Provider Last Name Juan Carlos Referring Provider Specialty Family Prac mady Referred Organization [facility] Referred Provider Souleymane Bolton Referred Address [address],[place], [place],[address] Referred Provider Specialty Internal Med icine Referral [...] content) DATE CREATED AUTHOR 12/12/2022 [facility] DATE CREATED AUTHOR AUTHOR'S ORGANIZ ATION 03/23/2024 [facility] DATE CREATED AUTHOR AUTHOR'S ORGANIZ ATION 12/26/2024 [facility] DATE CREATED AUTHOR AUTHOR'S ORGANIZ ATION 01/01/2025 [facility] EPIC Source Comments (unrecognize d section and content) In the event this informatio n is protected by the Federal Confidentiality of Alcohol and Drug Abuse Patient Records regulations: The Federal rules restrict any use of the information to criminally investigate or prosecute any alcohol or drug abuse patient.In the event this information is protected by the Federal Confidentiality of Alcohol and Drug Abuse Patient Records regulations: The Federal rules restrict any use of the information to criminally investigate or prosecute any alcohol or drug abuse patient. Care Teams (unrecognized sec tion and content) Boxing Trainer Relationship Specialty Start Date End Date Tavon Rangel MD [address] [phone] PCP - General 10/01/23 Boxing Trainer Relationship Specialty Start Date End Date Tavon Rangel MD [address] [phone] PCP - General 10/01/23 Boxing Trainer Relationship Specialty Start Date End Date Tavon Rangel MD [address] [place] [address] PCP - General 10/01/23 Boxing Trainer Relationship Specialty Start Date End Date Tavon Rangel MD [address] [facility] [place] [phone] PCP - General 10/01/23 Boxing Trainer Relationship Specialty Start Date End Date Tavon Rangel MD [address] [place] [address] PCP - General 10/01/23 Boxing Trainer Relationship Specialty Start Date End Date Tavon Rangel MD [address] [place] [address] PCP - General 10/01/23 Boxing Trainer Relationship Specialty Start Date End Date Tavon Rangel MD [facility] [place] [address] PCP - General 10/01/23 FOR [...] BE BASED ON THE PRIMARY CLINICAL RECORDS. [facility] [employer] [facility]. provides no warranty or guarantee of the accuracy or completeness of information in this document.
--- NOTE | 2025-01-11 13:48 | XR_ITS ---
The [address] [address] Patient Name: JUSTINO MEJIA MRN: [id number] date: 1985 Sex: F Assigned Patient Location: [facility] Current Patient Location: Accession/Order Number: [id number] Exam Date: 01/11/2025 14:14 Report Date: 01/12/2025 09:35 At the request of: VANDANA LEONARD Procedure: XR chest 2V EXAMINATION: XR chest 2V HISTORY: Preop exam COMPARISON: No relevant comparison available. TECHNIQUE: PA and lateral FINDINGS: LUNGS: No significant pulmonary parenchymal abnormalities. VASCULATURE: No increased pulmonary vasculature. PLEURA: No pneumothorax, effusion, or pleural thickening. CARDIAC: No cardiomegaly or cardiac silhouette abnormality. MEDIASTINUM: No visible mass or adenopathy. BONES: No fracture or visible bone lesion. OTHER: Negative. XR/XR chest 2V IMPRESSION: No acute cardiopulmonary process Electronically authenticated by: JESSICA HAM Date: 01/12/2025 09:35
== END 2025-01-11 13:21 | disposition home or self-care (01) ==
LOC: PST 13:21
PROVIDERS: PCP Family Medicine; Visit Provider Obstetrics & Gynecology
DX: Z01.810 Encounter for preprocedural cardiovascular examination (principal); N92.0 Excessive and frequent menstruation with regular cycle; N93.9 Abnormal uterine and vaginal bleeding, unspecified; R10.2 Pelvic and perineal pain
CPT/HCPCS: 71046

== ENCOUNTER 2025-01-22 07:44 | Day surgery (SDC) | payer OTHER, SELFPAY ==
[2025-01-11 13:58] VITALS: BP 103/67; PULSE 79; TEMP 36.5; O2SAT 99; BMI 29.9
[2025-01-22] VITALS (11 sets, daily range): BP systolic 97–129; BP diastolic 46–82; PULSE 70–92; TEMP 36.2; O2SAT 16–99; BMI 29.7
[2025-01-22 07:51] LABS: Basophils Percent Auto 0.4 % (0.2-2.0); Eosinophils Absolute Auto 0.2 10^3/uL (0.0-0.7); Eosinophils Percent Auto 2.1 % (0.9-7.0); Hematocrit 38.5 % (36.0-48.0); Immature Granulocytes Abs Auto 0.02 10^3/uL (0.00-0.03); Immature Granulocytes Pct Auto 0.2 % (0.0-0.5); Lymphocytes Absolute Auto 1.9 10^3/uL (1.2-3.8); Lymphocytes Percent Auto 18.7 % (20.5-60.0); Mean Corpuscular HGB Conc 33.8 g/dL (29.9-35.2); Mean Corpuscular Hemoglobin 31.5 pg (26.7-34.0); Mean Corpuscular Volume 93.2 fL (81.0-99.0); Mean Platelet Volume 9.5 fL (9.5-13.5); Monocytes Absolute Auto 0.5 10^3/uL (0.3-0.8); Monocytes Percent Auto 5.4 % (1.7-12.0); Neutrophils Absolute Auto 7.3 10^3/uL (1.4-6.5); Neutrophils Percent Auto 73.2 % (43.0-75.0); Platelet Count 233 10^3/uL (150-450); Red Blood Count 4.13 10^6/uL (4.20-5.40)
--- OUTSIDE RECORDS SUMMARY | 2025-01-22 07:53 | XMS_ITS | CCD ---
Author Organization [facility] Care Team Providers Care Cda Teacher Name Role Phone Tavon Rangel Unavailable Souleymane Bolton Unavailable DR VANDANA ALCARAZ Admitting Unavailable KIERAN, DR ROSS Attending Unavailable KIERAN, DR ROSS Primary Care Unavailable KIERAN, DR ROSS Consulting [...] Allergy 02-04-20 15 hives and vomiting The [facility] Repository (20 sources) Morphine; Translations: [MORPHINE] Drug Allergy 03-28-20 07 Hives, Shortness of breath, Itching, Rash [facility] Work Phone: (20 sources) Penicillin Drug Allergy hives [facility] [facility] [employer] Other (20 sources) rosuvastatin Drug Allergy 12-13-19 22 Headache/nause a [facility] [employer] Other (20 sources) Sulfacetamide Drug Allergy hives [facility] [employer] Other (1 source) Morphine Drug Allergy 02-04-20 15 The [facility] Repository (2 sources) Penicillins; Translations: [PENICILLINS] Drug allergy (disorder) 05-02-20 06 The [facility] Repository (1 source) Sulfonamides (Antibiotic) Drug allergy (disorder) 02-04-20 15 The [facility] Repository (1 source) Morphine Drug Allergy hives and can't breathe [employer] Other (2 sources) Penicillins Propensity to adverse reactions 05-02-20 06 Rash [facility] (14 sources) Sulfonamides (Antibiotic); Translations: [SULFA (SULFONAMIDE ANTIBIOTICS)] Propensity to adverse reactions 08-31-20 03 Rash, Hives, Itching [facility] Work Phone: (11 sources) HYDROcodone Drug Allergy 10-01-20 23 Rash [facility] Work Phone: (11 sources) Penicillin G Drug Allergy 10-01-20 23 Rash [facility] (10 sources) Acetaminophen / HYDROcodone Drug Allergy 10-06-20 [facility] (10 sources) Penicillins Drug Intolerance 05-02-20 06 Hives, Itching, Rash [facility] (1 source) Acetaminophen Drug Allergy 10-12-20 [facility] Repository (1 source) HYDROcodone Drug Allergy 10-12-20 [facility] Repository (1 source) Morphine Drug Allergy 10-12-20 [facility] Repository (1 source) Penicillins Drug allergy (disorder) 10-12-20 [facility] Repository (1 source) rosuvastatin Drug Allergy 10-12-20 [facility] Repository (1 source) Sulfacetamide Drug Allergy 10-12-20 [facility] Repository Medications Current Medications Medication Drug Class(es) [...] Start: 02-08-2022 take 2 tablets by mo [facility] once daily, then take 1 tablet by [...] April, Active cephalexin 500 mg oral capsule (11 sources) Cephalosporin Antibacterial Start: 10-06-2024 End: 02-05-2025 take 1 capsule by mouth once daily cephalexin (Keflex) 500 MG capsule Indications: Boils Take 1 capsule (500 mg) by mouth Daily 60 capsule 1 12/07/2024 02/05/2025 Active cetirizine hydrochloride 10 mg oral tablet (10 sources) Histamine-1 Receptor Antagonist cetirizine (ZyrTEC) 10 [...] time 12/07/2024 Discontinued 21 day ethinyl estradiol 0.073763 mg/hr / etonogestrel 0.005 mg/hr vaginal system [...] Ethinyl Estradiol / Ferrous fumarate / Norethindrone (10 sources) Estrogen Start: 11-23-2024 End: 11-23-2025 norethindrone-ethinyl [...] Active levocetirizine dihydrochloride 5 mg oral tablet (10 sources) Histamine-1 Receptor Antagonist levocetirizine (Xyzal) 5 MG tablet 1 (one) time each day at the same time Active loratadine 10 mg oral tablet (10 sources) loratadine (Clar itin) 10 MG tablet 1 (one) time each day at the same time Active 24 hr metFORMIN hydrochloride 500 mg extended release oral tablet (14 sources) Biguanide Start: End: take 1 tablet [...] Active Start: 05-17-2022 take 1 tablet by [facility] every twelve hours metFORMIN HCl 500 MG [...] of flying] Chronic Contraceptive and procreative management (15 sources) Contraception ; Translations: [Encounter for surveillance [...] use Episodic Skin and subcutaneous tissue infections (7 sources) Furuncle; Translations: [Furuncle, unspecified] Onset: 5 [...] Test Name Value Interpretation Reference Range Facility XR CHEST 2Von 01-12-2025 [place] [address] XRay Report Signed Patient: JUSTINO KELLER MR#: [id number] : 1985 Acct:[id number] Age/Sex: 39 / F ADM Date: 01/11/25 Loc: [facility] Attending Dr: Vandana Alcaraz D.O. Ordering Physician: Vandana Alcaraz D.O. Date of Service: 01/11/25 Procedure(s): XR chest 2V Accession Number(s): [id number] cc: Vandana Alcaraz D.O.; Tavon Rangel D.O. [place] [id number] Patient Name: JUSTINO KELLER MRN: [id number] date: 1985 Sex: F Assigned Patient Location: [facility] Current Patient Location: Accession/Order Number: [id number] Exam Date: 01/11/2025 14:14 Report Date: 01/12/2025 09:35 At the request of: VANDANA ALCARAZ Procedure: XR chest 2V EXAMINATION: XR chest 2V HISTORY: Preop exam COMPARISON: No relevant comparison available. TECHNIQUE: PA and lateral FINDINGS: LUNGS: No significant pulmonary parenchymal abnormalities. VASCULATURE: No increased pulmonary vasculature. PLEURA: No pneumothorax, effusion, or pleural thickening. CARDIAC: No cardiomegaly or cardiac silhouette abnormality. MEDIASTINUM: No visible mass or adenopathy. BONES: No fracture or visible bone lesion. OTHER: Negative. XR/XR chest 2V IMPRESSION: No acute cardiopulmonary process Electronically authenticated by: JESSICA HAM Date: 01/12/2025 09:35 Dictated By: Jessica Ham M.D. Signed By: 01/12/25937 DD/ 4 TD/TT: Cardiac Care Nurse: [facility] Radiology, Radiologist, MD - 01/12/2025 [place] [address] XRay Report Signed Patient: JUSTINO KELLER MR#: [id number] : 1985 Acct:[id number] Age/Sex: 39 / F ADM Date: 01/11/25 Loc: [facility] Attending Dr: Vandana Alcaraz D.O. Ordering Physician: Vandana Alcaraz D.O. Date of Service: 01/11/25 Procedure(s): XR chest 2V Accession Number(s): [id number] cc: Vandana Alcaraz D.O.; Tavon Rangel D.O. [place] [id number] Patient Name: JUSTINO KELLER MRN: [facility]:[id number] date: 1985 Sex: F Assigned Patient Location: [facility] Current Patient Location: Accession/Order Number: [id number] Exam Date: 01/11/2025 14:14 Report Date: 01/12/2025 09:35 At the request of: VANDANA ALCARAZ Procedure: XR chest 2V EXAMINATION: XR chest 2V HISTORY: Preop exam COMPARISON: No relevant comparison available. TECHNIQUE: PA and lateral FINDINGS: LUNGS: No significant pulmonary parenchymal abnormalities. VASCULATURE: No increased pulmonary vasculature. PLEURA: No pneumothorax, effusion, or pleural thickening. CARDIAC: No cardiomegaly or cardiac silhouette abnormality. MEDIASTINUM: No visible mass or adenopathy. BONES: No fracture or visible bone lesion. OTHER: Negative. XR/XR chest 2V IMPRESSION: No acute cardiopulmonary process Electronically authenticated by: JESSICA HAM Date: 01/12/2025 09:35 Dictated By: Jessica Ham M.D. Signed By: 01/12/25937 DD/ 4 TD/TT: Cardiac Care Nurse: [facility] Radiology Study observation (narrative) [facility] XR CHEST 2VOrdered By: Radio logist Radiology on 01-12-2025 [facility] Work Phone: HCG ( test) Ql (U)o n 12-23-2024 Interpretation and review of laboratory results Abnormal [facility] Preg Test, Ur Negative Negative [facility] ALL CBC WITH AUTO DIFFon BASOPHILS ABSOLUTE AUTO 0.1 [facility] Basophils/100 WBC (Bld) 0.8 % 0.2 - 2.0 % [facility] Eosinophils/100 WBC (Bld) 3.5 % 0.9 - 7.0 % [facility] Erythrocyte distribution width (RBC) [Ratio] 12 % 11.0 - 15.0 % [facility] Hematocrit (Bld) [Volume fraction] 43.4 % 36.0 - 48.0 % [facility] Hemoglobin (Bld) [Mass/Vol] 14.3 g/dL 12.0 - 16.0 g/dL [facility] IMMATURE GRANULOCYTES ABS AUTO 0.02 [facility] Immature granulocytes/100 WBC (Bld) 0.3 % 0.0 - 0.5 % [facility] LYMPHOCYTES ABSOLUTE AUTO 1.8 [facility] Lymphocytes/100 WBC (Bld) 26 % 20.5 - 60.0 % [facility] MCH (RBC) [Entitic mass] 30.6 pg 26.7 - 34.0 pg [facility] MCHC (RBC) [Mass/Vol] 32.9 g/dL 29.9 - 35.2 g/dL [facility] MCV (RBC) [Entitic vol] 92.7 fL 81.0 - 99.0 fL [facility] MONOCYTES ABSOLUTE AUTO 0.4 [facility] Monocytes/100 WBC (Bld) 6.2 % 1.7 - 12.0 % [facility] NEUTROPHILS ABSOLUTE AUTO 4.5 [facility] Neutrophils/100 WBC (Bld) 63.2 % 43.0 - 75.0 % [facility] Platelet mean volume (Bld) [Entitic vol] 9.7 fL 9.5 - 13.5 fL [facility] EO # 0.3 [facility] PLT 230 [facility] TB RBC 4.68 [facility] WBC 7.1 [facility] US PELVIC COMPLETE W/ TVon 0 [...] II, MD, PHD at 31-Dec-2024 08:44:02 AM [employer] Normal Not Available Comment on above: Order Comment: US PE LVIS-TRANSVAG IF INDICATED Patient's last menstrual period was 11/11/2024. IGP,APTIMA HPV,AGE GDLNon AGE GDLN ACOG TESTING Note . [facility] Comment on above: TESTS RESULT FLAG UN ITS REF RANGE LAB Clinician Provided Cytology Information Source.............Cervix;Endocervix No. of containers..01 ThinPrep Vial Age Khris GALDAMEZ Mariely... 32 FLAG LEGEND: L-Low Normal,H-High Normal,LL-Alert Low,HH-Alert High <-Panic Low,>-Panic High,A-Abnormal,AA-Critical Abnormal Performed at: 01 =[address] [address] Meg Slade MD, HPV APTIMA Negative Negative [facility] Comment on above: This nucleic acid am plification test detects fourteen high- risk HPV types (16,18,31,33,35,39,45,51,52,56,58,59,66,68) without differentiation. Performed at: =[address] [id number] Automatic Profile Sander Operator: Meg Slade MD, Phone: [phone] Performed at: - [address] [id number] Automatic Profile Sander Operator: Meg Slade MD, Phone: [phone] IGP, APTIMA HPV, RFX 16/18,45 Note . [facility] Comment on above: TESTS RESULT FLAG UN ITS REF RANGE LAB DIAGNOSIS: 02 NEGATIVE FOR INTRAEPITHELIAL LESION OR MALIGNANCY. Specimen adequacy: 02 Satisfactory for evaluation. Endocervical and/or squamous metaplastic cells (endocervical component) are present. Performed by: 02 Mila Ferguson Pattern Data Operator ([facility]) . 02 Note: Note 02 The [...] <-Panic Low,>-Panic High,A-Abnormal,AA-Critical Abnormal Performed at: [address] [address] Meg Slade MD, BRUSH-SPATULA CERVIX ENDOCERVIX [facility] RECURRENT VAGINITIS (HTRX)on 10-07-2024 ATOPOBIUM VAGINAE 0 [facility] ATOPOBIUM VAGINAE Not detected [facility] BVAB 2,3 (BACTERIAL VAGINOSIS ASSOCIATED BACTERIA 2, 3); MOBILUNCUS SPP 0 [facility] BVAB 2,3 (BACTERIAL VAGINOSIS ASSOCIATED BACTERIA 2, 3); MOBILUNCUS SPP Not detected [facility] OMNTY ALBICANS, PARAPSILOSIS, TROPICALIS 0 [facility] MONTY ALBICANS, PARAPSILOSIS, TROPICALIS Not detected [facility] MONTY GLABRATA 0 [facility] MONTY GLABRATA Not detected [facility] MONTY KRUSEI 0 [facility] Healt hcare MONTY KRUSEI Not detected [facility] CHLAMYDIA TRACHOMATIS 0 [facility] Healthcare CHLAMYDIA TRACHOMATIS Not detected [facility] GARDNERELLA VAGINALIS 24.749 Abnormal [facility] GARDNERELLA VAGINALIS Detected Abnormal [facility] Interpretation and review of laboratory results Abnormal [facility] MEGASPHAERA (TYPES 1, 2) 18.836 Abnormal [facility] MEGASPHAERA (TYPES 1, 2) Detected Abnormal [facility] MYCOPLASMA GENITALIUM 0 [facility] MYCOPLASMA GENITALIUM Not detected [facility] NEISSERIA GONORRHOEAE 0 [facility] NEISSERIA GONORRHOEAE Not detected [facility] TRICHOMONAS VAGINALIS 0 [facility] TRICHOMONAS VAGINALIS Not detected [facility] Urinalysis macro (dipstick) panel (U)on 10-06-2024 Bilirubin, UA Negative Negative - 4(70) +++ mg/dL [facility] Blood, UA Negative Negative - 50 Thomas/mcL [facility] Clarity, UA Clear [facility] re Color, UA Yellow [facility] Glucose, UA Negative Negative - 1999(110) ++++ mg/dL [facility] Interpretation and review of laboratory results Abnormal [facility] Ketones, UA Negative Negative - 160(16) ++++ mg/dL [facility] Leukocytes, UA Trace Negative - 500+++ Robert/mcL [facility] Nitrite, UA Negative Negative - Positive [facility] pH, UA 7 5 - 9 [facility] Protein, UA Negative Negative - 1999(20) ++++ mg/dL [facility] Spec Grav, UA 1.015 1 - 1.03 [facility] Urobilinogen, UA 0.2 0.2 - 12 mg/dL [facility] A1C with Estimated Average G [facility] 04-07-2024 Glucose [Mass/Vol] 108 mg/dL Normal [facility] Comment on above: Order Comment: Reaso n for Exam Prediabetes Result Comment: PERF ORMED BY: [address] [address] PATHOLOGIST TERMINAL GAUGER SUPERVISOR TRU DUNCAN M.D. Performed By: #### A 1C [facility] #### [address] [address] [place] HbA1c (Bld) [Mass fraction] 5.4 % Normal 4.3-5.6 [facility] Comment on above: Order Comment: Reaso n for Exam Prediabetes Result Comment: Incr eased risk for diabetes: 5.7 - 6.4 diabetes: >6.4 glycemic control for adults with diabetes: <7.0 Performed By: #### A 1C [facility] #### [facility] [address] [place] [address] Comprehensive Metabolic Pane tomi 04-07-2024 Albumin [Mass/Vol] 4.4 g/dL Normal 3.5-5.7 [facility] Comment on above: Order Comment: Reaso n for Exam Hyperlipidemia Performed By: #### C MP, LIPID #### [address] Albumin/Globulin [Mass ratio] 1.8 {ratio} Normal [facility] Comment on above: Order Comment: Reaso n for Exam Hyperlipidemia Performed By: #### C MP, LIPID #### [address] ALP [Catalytic activity/Vol] 38 U/L Normal 34-104 [facility] Comment on above: Order Comment: Reaso n for Exam Hyperlipidemia Performed By: #### C MP, LIPID #### [address] ALT [Catalytic activity/Vol] 11 U/L Normal 7-52 [facility] Comment on above: Order Comment: Reaso n for Exam Hyperlipidemia Performed By: #### C MP, LIPID #### [address] Anion gap [Moles/Vol] 12.0 mmol/L Normal 6.0-15.0 [facility] Comment on above: Order Comment: Reaso n for Exam Hyperlipidemia Performed By: #### C MP, LIPID #### [address] AST [Catalytic activity/Vol] 13 U/L Normal 13-39 [facility] Comment on above: Order Comment: Reaso n for Exam Hyperlipidemia Performed By: #### C MP, LIPID #### [facility] [address] [place] [address] Bilirubin [Mass/Vol] 0.4 mg/dL Normal 0.3-1.0 [facility] Comment on above: Order Comment: Reaso n for Exam Hyperlipidemia Performed By: #### C MP, LIPID #### [facility] [address] [place] [address] [place] Calcium [Mass/Vol] 9.3 mg/dL Normal 8.6-10.3 [facility] Comment on above: Order Comment: Reaso n for Exam Hyperlipidemia Performed By: #### C MP, LIPID #### [facility] [address] [place] [address] [place] Chloride [Moles/Vol] 108 mmol/L High 98-107 [facility] Comment on above: Order Comment: Reaso n for Exam Hyperlipidemia Performed By: #### C MP, LIPID #### [facility] [address] [place] [address] [place] CO2 [Moles/Vol] 25.3 mmol/L Normal 21.0-31.0 [facility] Comment on above: Order Comment: Reaso n for Exam Hyperlipidemia Performed By: #### C MP, LIPID #### [address] Creatinine [Mass/Vol] 0.66 mg/dL Normal 0.60-1.20 [facility] Comment on above: Order Comment: Reaso n for Exam Hyperlipidemia Performed By: #### C MP, LIPID #### [facility] [address] [place] [address] [place] GFR/1.73 sq M.predicted MDRD (S/P/Bld) [Vol rate/Area] mL/min/{1.73_m2} Normal [facility] Comment on above: Order Comment: Reaso n for Exam Hyperlipidemia Performed By: #### C MP, LIPID #### [facility] [address] [place] [address] [place] Globulin (S) [Mass/Vol] 2.5 g/dL Normal [facility] Comment on above: Order Comment: Reaso n for Exam Hyperlipidemia Performed By: #### C MP, LIPID #### [facility] [address] [place] [address] [place] Glucose [Mass/Vol] 97 mg/dL Normal 70-100 [facility] Comment on above: Order Comment: Reaso n for Exam Hyperlipidemia Result Comment: [place] Glucose Reference Range is dependent on time and content of last meal. Glucose of more than 200 mg/dL in a nonstressed, ambulatory subject supports the diagnosis of Diabetes Mellitus. ADA recommended reference range Performed By: #### C MP, LIPID #### [facility] [address] Potassium [Moles/Vol] 4.3 mmol/L Normal 3.5-5.1 [facility] Comment on above: Order Comment: Reaso n for Exam Hyperlipidemia Performed By: #### C MP, LIPID #### [address] Protein [Mass/Vol] 6.9 g/dL Normal 6.4-8.9 [facility] Comment on above: Order Comment: Reaso n for Exam Hyperlipidemia Performed By: #### C MP, LIPID #### [place] [address] [place] Sodium [Moles/Vol] 141 mmol/L Normal 136-145 [facility] Comment on above: Order Comment: Reaso n for Exam Hyperlipidemia Performed By: #### C MP, LIPID #### [place] [address] [place] Urea nitrogen [Mass/Vol] 16 mg/dL Normal 7-25 [facility] Comment on above: Order Comment: Reaso n for Exam Hyperlipidemia Performed By: #### C MP, LIPID #### [facility] [address] Lipid Panelon 04-07-2024 Cholesterol [Mass/Vol] 166 mg/dL Normal 140-200 [facility] Comment on above: Order Comment: Reaso n for Exam Hyperlipidemia Result Comment: Chol less than 200 mg/dl low risk Chol 201-239 mg/dl borderline risk Chol 240 mg/dl and greater high risk Performed By: #### C MP, LIPID #### [facility] [address] [place] [address] [place] Cholesterol in HDL [Mass/Vol] 59 mg/dL Normal 23-92 [facility] Comment on above: Order Comment: Reaso n for Exam Hyperlipidemia Result Comment: HDL CHOL ATP-III CLASSIFICATION Cardiovascular Risk HDL > or equal to 60 mg/dL LOW HDL < 40 mg/dL HIGH Performed By: #### C MP, LIPID #### [facility] [address] Cholesterol.total/Ch olesterol in HDL [Mass ratio] 2.8 {ratio} Normal <5.0 [facility] Comment on above: Order Comment: Reaso n for Exam Hyperlipidemia Result Comment: PERF ORMED BY: [place] [address] PATHOLOGIST TERMINAL GAUGER SUPERVISOR TRU DUNCAN M.D. Performed By: #### C MP, LIPID #### [address] LDL Cholesterol,Calculat ed 95 mg/dL Normal 0-100 [facility] Comment on above: Order Comment: Reaso n for Exam Hyperlipidemia Result Comment: LDL ATP III CLASSIFICATION LDL less than 100 mg/dL Optimal LDL 100-129 mg/dL Near or above optimal LDL 130-159 mg/dL Borderline high LDL 160-189 mg/dL High LDL greater than 189 mg/dL Very high Performed By: #### C MP, LIPID #### [address] Triglyceride w/Reflex 59 mg/dL Normal 0-149 [facility] Comment on above: Order Comment: Reaso n for Exam Hyperlipidemia Result Comment: TRIG ATP III CLASSIFICATION TRIG less than 150 mg/dL Normal TRIG 150-199 mg/dL Borderline high TRIG 200-500 mg/dL High TRIG greater than 500 mg/dL Very high Standard traceable to the Center for Disease Conrtrol and Prevention (CDC) test method. Performed By: #### C MP, LIPID #### [facility] [address] VLDL CHOLESTEROL 11 mg/dL Normal [facility] Comment on above: Order Comment: Reaso n for Exam Hyperlipidemia Performed By: #### C MP, LIPID #### [facility] [address] CNOVon 03-23-2024 CNOV Office Visit (OTOLCR ) JUSTINO KELLER ([id number]) 1985 F Date Time Provider Department 03/23/24 [...] whose address you want to display, e.g., .ShiftgigR[1 (where 1 is the provider ID). Communication [...] ear infec (more content not included)... Normal [facility] Dung 03-11-2024 CNPN Telephone (OTOLMN) JUSTINO MONTGOMERY ([id number]) 1985 F Date Time Provider Department 03/11/24 [...] medication for infected ears. Pt Phone #: [phone] Pharmacy Name and # : [facility]/ [phone] Pt last seen: Visit date not found Candida Topete, SELIN 03/11/2024 3:57 PM Signed Called patient and she said that Dr. Skinner saw her yesterday when she came for an appointment with her mom. She states that Dr. Skinner was going to send in antibiotic ear drops until she could see Erik later in the month. Would you be [...] Status:Closed by BRUCE RAMIREZ on 03/13/24 Normal [facility] Cytology Cervical or vaginal smear or scraping studyon 10-01-2023 [facility] PAP ACOG PANEL 2: 30 to 65on 02-13-2022 . . Normal [facility] Comment on above: Result Comment: Perf ormed at: WB Performed By: #### [id number] #### [facility] [address] [place] [address] [address] Lakshmi Ha Age Gdln ACOG Testing 30-65 [facility] Comment on above: Performed By: #### 4 [id number] #### [facility] [address] [place] [address] [address] Lakshmi Ha DIAGNOSIS: Comment Normal [facility] Comment on above: Result Comment: NEGA TIVE FOR INTRAEPITHELIAL LESION OR MALIGNANCY. Performed at: WB Performed By: #### 4 [id number] #### [facility] [address] [place] [address] Dr. Lakshmi Ha HPV Aptima Negative Normal Negative [facility] Comment on above: Result Comment: This nucleic acid amplification test detects fourteen high-risk HPV types (16,18,31,33,35,39,45,51,52,56,58,59,66,68) without differentiation. Performed at: =G Performed By: #### [id number] #### [facility] [address] [place] [address] Dr. Lakshmi Ha Methodology: Comment Normal [facility] Comment on above: Result Comment: This liquid based ThinPrep(R) pap test was screened with the use of an image guided system. Performed at: WB Performed By: #### 4 [id number] #### [facility] [address] [place] [address] [address] Lakshmi Ha Note: Comment Normal [facility] Comment on above: Result Comment: The Pap smear is a screening test designed to aid in the detection of premalignant and malignant conditions of the uterine cervix. It is not a diagnostic procedure and should not be used as the sole means of detecting cervical cancer. Both false-positive and false-negative reports do occur. . Performed at: WB Performed By: #### 4 [id number] #### [facility] [address] [place], [place] [address] Dr. Lakshmi Ha Performed by: Comment Normal [facility] Comment on above: Result Comment: Courtney Jacques, Pattern Data Operator (ASCP) Performed at: [facility] Performed By: [id number] #### [facility] [address], [place] [address] Dr. Lakshmi Ha Specimen adequacy: Comment Normal [facility] Comment on above: Result Comment: Sati sfactory for evaluation. Endocervical and/or squamous metaplastic cells (endocervical component) are present. Performed at: [facility] Performed By: [id number] #### [facility] [address] [address] [address] Lakshmi Ha Vital Signs Date Time Vital Sign Value Performing Clinician Facility 12-23-2024 15:21-0500 Body mass index (BMI) [Ratio] 29.19 kg/m2 Vandana Kieran DO Work Phone: [facility] 12-23-2024 15:21-0500 Body weight 87.09 kg Vandana Kieran DO Work Phone: [facility] 12-23-2024 15:21-0500 Diastolic blood pressure 72 mm[Hg] Vandana Kieran DO Work Phone: [facility] 12-23-2024 15:21-0500 Systolic blood pressure 120 mm[Hg] Vandana Kieran DO Work Phone: [facility] 12-07-2024 10:26-0500 Body mass index (BMI) [Ratio] 30.23 kg/m2 Vandana Kieran DO Work Phone: [facility] 12-07-2024 10:26-0500 Body weight 90.17 kg Vandana Kieran DO Work Phone: [facility] 12-07-2024 10:26-0500 Diastolic blood pressure 60 mm[Hg] Vandana Kieran DO Work Phone: [facility] 12-07-2024 10:26-0500 Systolic blood pressure 118 mm[Hg] Vandana Kieran DO Work Phone: [facility] 10-06-2024 10:14-0500 Body mass index (BMI) [Ratio] 28.89 kg/m2 Vandana Kieran DO Work Phone: [facility] 10-06-2024 10:14-0500 Body weight 86.18 kg Vandana Kieran DO Work Phone: [facility] 10-06-2024 10:14-0500 Diastolic blood pressure 72 mm[Hg] Vandana Kieran DO Work Phone: [facility] 10-06-2024 10:14-0500 Systolic blood pressure 112 mm[Hg] Vandana Kieran DO Work Phone: [facility] 12-04-2023 14:30-0500 Body height 172.72 cm Souleymane Bolton Other [facility] Other 12-04-2023 14:30-0500 Body mass index (BMI) [Ratio] 27.61 kg/m2 Souleymane Bolton Other [facility] Other 12-04-2023 14:30-0500 Body weight 82.37 kg Souleymane Bolton Other [facility] Other 12-04-2023 14:30-0500 Diastolic blood pressure 54 mm[Hg] Souleymane Bolton Other [facility] Other 12-04-2023 14:30-0500 Respiratory rate 18 /min Souleymane Bolton Other [facility] Other 12-04-2023 14:30-0500 SaO2% (BldA) [Mass fraction] 96 % Souleymane Bolton Other [facility] Other 12-04-2023 14:30-0500 Systolic blood pressure 91 mm[Hg] Souleymane Bolton Other [facility] Other 10-10-2023 14:15-0500 Body height 172.72 cm Tavon Rangel Other [facility] Other 10-10-2023 14:15-0500 Body mass index (BMI) [Ratio] 26.45 kg/m2 Tavon Rangel Other [facility] Other 10-10-2023 14:15-0500 Body weight 78.93 kg Tavon Rangel Other [facility] Other 10-10-2023 14:15-0500 Diastolic blood pressure 62 mm[Hg] Tavon Rangel Other [facility] Other 10-10-2023 14:15-0500 Respiratory rate 18 /min Tavon Juan Carlos Other [facility] Other 10-10-2023 14:15-0500 SaO2% (BldA) [Mass fraction] 97 % Tavoncharity Rangel Other [facility] Other 10-10-2023 14:15-0500 Systolic blood pressure 92 mm[Hg] Tavon Rangel Other [facility] Other 09-26-2023 14:45-0400 Body height 172.72 cm Souleymane Bolton Other [facility] Other 09-26-2023 14:45-0400 Body mass index (BMI) [Ratio] 26.91 kg/m2 Souleymane Bolton Other [facility] Other 09-26-2023 14:45-0400 Body weight 80.29 kg Souleymane Bolton Other [facility] Other 09-26-2023 14:45-0400 Diastolic blood pressure 59 mm[Hg] Souleymane Bolton Other [facility] Other 09-26-2023 14:45-0400 Respiratory rate 18 /min Souleymane Bolton Other [facility] Other 09-26-2023 14:45-0400 SaO2% (BldA) [Mass fraction] 100 % Souleymane Bolton Other [facility] Other 09-26-2023 14:45-0400 Systolic blood pressure 93 mm[Hg] Souleymane Bolton Other [facility] Other 01-30-2023 16:30-0500 Body height 172.72 cm Souleymane Bolton Other [facility] Other 01-30-2023 16:30-0500 Body mass index (BMI) [Ratio] 31.18 kg/m2 Souleymane Bolton Other [facility] Other 01-30-2023 16:30-0500 Body weight 93.03 kg Souleymane Bolton Other [facility] Other 01-30-2023 16:30-0500 Diastolic blood pressure 66 mm[Hg] Souleymane Montenegrodiff Other [facility] Other 01-30-2023 16:30-0500 Respiratory rate 18 /min Souleymane Montenegrodiff Other [facility] Other 01-30-2023 16:30-0500 SaO2% (BldA) [Mass fraction] 96 % Souleymane Bolton Other [facility] Other 01-30-2023 16:30-0500 Systolic blood pressure 95 mm[Hg] Souleymane Bolton Other [facility] Other 10-19-2022 10:45-0500 Body height 172.72 cm Souleymane Bolton Other [facility] Other 10-19-2022 10:45-0500 Body mass index (BMI) [Ratio] 31.93 kg/m2 Souleymane Bolton Other [facility] Other 10-19-2022 10:45-0500 Body weight 95.26 kg Souleymane Bolton Other [facility] Other 10-19-2022 10:45-0500 Diastolic blood pressure 67 mm[Hg] Souleymane Bolton Other [facility] Other 10-19-2022 10:45-0500 Respiratory rate 18 /min Souleymane Montenegrodiff Other [facility] Other 10-19-2022 10:45-0500 SaO2% (BldA) [Mass fraction] 99 % Souleymane Montenegrodiff Other [facility] Other 10-19-2022 10:45-0500 Systolic blood pressure 110 mm[Hg] Souleymane Montenegrodiff Other [facility] Other 09-07-2022 10:45-0400 Body height 172.72 cm Souleymane Bolton Other [facility] Other 09-07-2022 10:45-0400 Body mass index (BMI) [Ratio] 33.26 kg/m2 Souleymane Bolton Other [facility] Other 09-07-2022 10:45-0400 Body weight 99.25 kg Souleymane Bolton Other [facility] Other 09-07-2022 10:45-0400 Diastolic blood pressure 69 mm[Hg] Souleymane Bolton Other [facility] Other 09-07-2022 10:45-0400 Respiratory rate 18 /min Souleymane Bolton Other [facility] Other 09-07-2022 10:45-0400 SaO2% (BldA) [Mass fraction] 98 % Souleymane Bolton Other [facility] Other 09-07-2022 10:45-0400 Systolic blood pressure 109 mm[Hg] Souleymane Bolton Other [facility] Other 05-17-2022 13:30-0400 Body height 172.72 cm Tavon Rangel Other [facility] Other 05-17-2022 13:30-0400 Body mass index (BMI) [Ratio] 34.82 kg/m2 Tavon Rangel Other [facility] Other 05-17-2022 13:30-0400 Body weight 103.87 kg Tavon Rangel Other [facility] Other 05-17-2022 13:30-0400 Diastolic blood pressure 60 mm[Hg] Tavon Rangel Other [facility] Other 05-17-2022 13:30-0400 Respiratory rate 16 /min Tavon Rangel Other [facility] Other 05-17-2022 13:30-0400 SaO2% (BldA) [Mass fraction] 97 % Tavon Rangel Other [facility] Other 05-17-2022 13:30-0400 Systolic blood pressure 102 mm[Hg] Tavon Rangel Other [facility] Other 02-08-2022 12:30-0500 Body height 172.72 cm Tavon Rangel Other [facility] Other 02-08-2022 12:30-0500 Body mass index (BMI) [Ratio] 34.66 kg/m2 Tavon Rangel Other [facility] Other 02-08-2022 12:30-0500 Body weight 103.42 kg Tavon Rangel Other [facility] Other 02-08-2022 12:30-0500 Diastolic blood pressure 66 mm[Hg] Tavon Rangel Other [facility] Other 02-08-2022 12:30-0500 Respiratory rate 16 /min Tavon Rangel Other [facility] Other 02-08-2022 12:30-0500 SaO2% (BldA) [Mass fraction] 98 % Tavon Rangel Other [facility] Other 02-08-2022 12:30-0500 Systolic blood pressure 120 mm[Hg] Tavon Rangel Other [facility] Other Encounters Encounter Date Encounter Type Care Provider Facility Start: 01-12-2025 End: 01-12-2025 Clinisync Result Encounter Vandana Kieran DO Work Phone: [facility] External Department Unsolicited Start: 01-12-2025 End: 01-12-2025 Clinisync Result Encounter Vandana Kieran DO Work Phone: [facility] External Department Unsolicited Start: 12-30-2024 End: 12-30-2024 ambulatory VANDANA KIERAN Not Available Start: 12-23-2024 End: 12-23-2024 Patient encounter procedure Vandana Kieran DO Work Phone: [facility] Comment on above: Pre-op evaluation; Request for sterilization; Menorrhagia with regular cycle; Abnormal uterine bleeding (AUB); Pelvic pain in female Start: 12-23-2024 End: 12-23-2024 Preprocedural examination done Vandana Kieran DO Work Phone: [facility] Start: 12-23-2024 End: 12-23-2024 ambulatory Vandana Kieran Facility:[facility] Start: 12-08-2024 End: 12-08-2024 Clinisync Result Encounter Vandana Kieran DO Work Phone: [facility] External Department Unsolicited Start: 12-08-2024 End: 12-08-2024 Clinisync Result Encounter Vandana Kieran DO Work Phone: [facility] External Department Unsolicited Start: 12-07-2024 End: 12-07-2024 Bamboo flowsheet Vandana Kieran DO Work Phone: [facility] Start: 12-07-2024 End: 12-07-2024 Bamboo flowsheet Vandana Kieran DO Work Phone: [facility] Start: 12-07-2024 End: 12-07-2024 Office outpatient visit 15 minutes Vandana Kieran DO Work Phone: [facility] Comment on above: Boils; Encounter for surveillance of other contraceptive; Consultation for sterilization; Urinary tract infection without hematuria, site unspecified; Menorrhagia with regular cycle Start: 12-07-2024 End: 12-07-2024 ambulatory VANDANA KIERAN Not Available Start: 10-06-2024 End: 10-06-2024 Bamboo flowsheet Vandana Kieran DO Work Phone: [facility] Start: 10-06-2024 End: 10-15-2024 Bamboo flowsheet Vandana Kieran DO Work Phone: [facility] Start: 10-06-2024 End: 10-15-2024 Clinisync Result Encounter Vandana Kieran DO Work Phone: [facility] External Department Unsolicited Start: 10-06-2024 End: 10-07-2024 External Result Encounter Vandana Kieran DO Work Phone: [facility] External Department Unsolicited Start: 10-06-2024 End: 10-06-2024 Patient encounter procedure Vandana Kieran DO Work Phone: [facility] Start: 10-06-2024 End: 10-06-2024 Periodic preventive med est patient 18-39 yrs Vandana Kieran DO Work Phone: [facility] Comment on above: Well woman exam with routine gynecological exam; Urinary tract infection without hematuria, site unspecified; Yeast infection; Vaginal discharge; Irregular periods/menstrual cycles Start: 10-06-2024 End: 10-06-2024 ambulatory VANDANA KIERAN Not Available Start: 04-07-2024 End: 04-07-2024 ambulatory Tavon Rangel Facility:[facility] Start: 03-23-2024 End: 03-23-2024 ambulatory JESSICA CEDILLO Facility:[facility] Start: 03-23-2024 End: 03-23-2024 Patient encounter procedure Jessica Cedillo PA-C Work Phone: Otolaryngology Comment on above: Dysfunction of both eustachian tubes (Primary Dx) Start: 03-11-2024 Telephone encounter Shun Skinner MD Work Phone: Otolaryngology Comment on above: Medication Problem Start: 12-17-2023 End: 12-17-2023 ambulatory Tavon Rangel Other [facility] Other Start: 12-17-2023 Telephone encounter Tavon Rangel [facility] Start: 12-10-2023 End: 12-10-2023 ambulatory Tavon Rangel Other [facility] Other Start: 12-10-2023 Telephone encounter Tavon Rangel [facility] Start: 12-04-2023 End: 12-04-2023 ambulatory Souleymane Bolton Other [facility] Other Start: 12-04-2023 Follow-up encounter Souleymane srinivasan [facility] Start: 11-27-2023 End: 11-27-2023 ambulatory Tavon Rangel Other [facility] Other Start: 11-27-2023 Telephone encounter Tavon Rangel [facility] Start: 11-05-2023 End: 11-05-2023 ambulatory Souleymane Bolton Other [facility] Other Start: 11-05-2023 Telephone encounter Souleymane srinivasan [facility] Start: 10-31-2023 End: 10-31-2023 ambulatory Tavon Rangel Other [facility] Other Start: 10-31-2023 Telephone encounter Tavon Rangel [facility] Start: 10-10-2023 End: 10-10-2023 ambulatory Tavon Rangel Other [facility] Other Start: 10-10-2023 Encounter for genera l adult medical examination without abnormal findings Tavon Rangel [facility] [place] Start: 10-10-2023 Periodic preventive med est patient 18-39 yrs Tavon Ranegl [facility] [place] Start: 09-26-2023 End: 09-26-2023 ambulatory Souleymane Bolton Other [facility] Other Start: 09-26-2023 Follow-up encounter Souleymane srinivasan [facility] Start: 09-19-2023 End: 09-19-2023 ambulatory Tavon Rangel Other [facility] Other Start: 09-19-2023 Telephone encounter [facility] Start: 08-29-2023 End: 08-29-2023 ambulatory Tavon Rangel Other [facility] Other Start: 08-29-2023 Telephone encounter Tavon Rangel [facility] [place] Start: 08-21-2023 End: 08-21-2023 ambulatory Tavon Rangel Other [facility] Other Start: 08-21-2023 Telephone encounter Tavon Rangel [facility] [place] Start: 07-04-2023 End: 07-04-2023 ambulatory Tavon Rangel Other [facility] Other Start: 07-04-2023 Telephone encounter Tavon Rangel [facility] [place] Start: 02-26-2023 End: 02-26-2023 ambulatory Tavon Rangel Other [facility] Other Start: 02-26-2023 Telephone encounter [facility] Start: 01-30-2023 End: 01-30-2023 ambulatory Souleymane Bolton Other [facility] Other Start: 01-30-2023 Follow-up encounter Souleymane srinivasan [facility] Start: 10-19-2022 End: 10-19-2022 ambulatory Souleymane Bolton Other [facility] Other Start: 10-19-2022 Follow-up encounter Souleymane srinivasan [facility] Start: 09-17-2022 End: 09-17-2022 ambulatory Tavon Rangel Other [facility] Other Start: 09-17-2022 Telephone encounter Tavon Rangel [facility] Start: 09-07-2022 End: 09-07-2022 ambulatory Souleymane Bolton Other [facility] Other Start: 09-07-2022 Follow-up encounter Souleymane srinivasan [facility] Start: 07-26-2022 End: 07-26-2022 ambulatory Souleymane Bolton Other [facility] Other Start: 07-26-2022 Telephone encounter Souleymane srinivasan [facility] Start: 07-18-2022 End: 07-18-2022 ambulatory Souleymane Bolton Other [facility] Other Start: 07-18-2022 Telephone encounter Souleymane Ortiz [facility] Start: 07-12-2022 End: 07-12-2022 ambulatory Tavon Rangel Other [facility] Other Start: 07-12-2022 Telephone encounter Tavon Rangel [facility] Start: 05-17-2022 End: 05-17-2022 ambulatory Tavon Rangel Other [facility] Other Start: 05-17-2022 Office outpatient vi sit 25 minutes [facility] Start: 03-13-2022 End: 03-13-2022 ambulatory Tavon Rangel Other [facility] Other Start: 03-13-2022 Telephone encounter Tavon Rangel [facility] [place] Start: 02-08-2022 End: 02-08-2022 ambulatory Tavon Rangel Other [facility] Other Start: 02-08-2022 Office outpatient vi sit 25 minutes [facility] Start: 02-06-2022 End: 02-06-[address] VANDANA ALCARAZ Facility: Start: 01-29-2022 End: 01-29-2022 ambulatory Tavon Rangel Other [facility] Other Start: 01-29-2022 Telephone encounter Tavon Rangel [facility] Start: 12-13-2021 End: 12-13-2021 ambulatory Tavon Rangel Other [facility] Other Start: 12-13-2021 Telephone encounter Tavon Rangel [facility] Primary Care Procedures Date Procedure Procedure Detail Performing Clinician Start: 01-12-2025 XR CHEST 2V Vandana Fazi o DO Work Phone: Start: 12-23-2024 Urine test visual color cmprsn meths Vanadna Kieran DO Work Phone: Start: 12-08-2024 ALL CBC WITH AUTO DIFF Vandana Kieran DO Work Phone: Start: 10-06-2024 RECURRENT VAGINITIS (HTRX) Vandana Kieran DO Work Phone: Start: 10-06-2024 Urnls dip stick/tabl et rgnt non-auto w/o micrscp Vandana Kieran DO Work Phone: Start: 10-06-2024 IGP,APTIMA HPV,AGE GDLN Vandana Diamond Mind DO Work Phone: Start: 10-06-2024 Microscopic observat ion [Identifier] in Cervix by Cyto stain Vandana Diamond Mind DO Work Phone: Start: 10-01-2023 Microscopic observat ion [Identifier] in Cervix by Cyto stain Vandana Diamond Mind DO Work Phone: Start: 10-01-2023 Cytp cerv/vag auto t hin layer prep mnl screen Vandana Diamond Mind DO Work Phone: Plan of Treatment Date Care Activity Detail Author Start: 10-06-2029 Screening for malign ant neoplasm of cervix [facility] Start: 10-01-2028 Screening for malign ant neoplasm of cervix [facility] Start: 10-14-2025 End: 10-14-2025 Patient encounter procedure 10/14/2025 10:00 AM EST Office Visit [facility] [address] [place] [address] Vandana Alcaraz DO [address] [place] [address] [facility] Start: 12-30-2024 End: 12-30-2024 Professional / ancillary services management 12/30/2024 1:00 PM EST Ancillary Procedure [facility] [address] [place], [place] [address] [id number] [facility] Start: 12-23-2024 End: 12-23-2024 Patient encounter procedure 12/23/2024 2:30 PM EST Procedure Visit [facility] [place] [address] Vandana Alcaraz DO [address] [place] [address] [facility] Start: 12-07-2024 End: 12-07-2025 aPTT in Blood by Coagulation assay APTT Lab Routine Menorrhagia with regular cycle Expected: 12/07/2024 (Approximate), Expires: 12/07/2025 [facility] Comment on above: Expected: 12/07/2024 (Approximate), Expires: [...] EST Office Visit [facility] [address] [place] [phone] Vandana Alcaraz, [address] [place] [address] Arrived [facility] Comment on above: Arrived Start: 08-02-2024 Influenza vaccination [facility] Start: 12-02-2023 Behavioral Health Screening Behavioral Health Screening [facility] Start: 08-02-2023 Covid-19 Vaccine ( season) Covid-19 Vaccine ( season) [facility] Start: 08-02-2023 Covid-19 Vaccine ( season) Covid-19 Vaccine ( season) [facility] Start: 2017 Screening for malign ant neoplasm of cervix [facility] Start: 2008 Screening for malign ant neoplasm of cervix [facility] Start: 2006 Hepatitis B Vaccine (1 of 3 - 19+ 3-dose series) Hepatitis B Vaccine (1 of 3 - 19+ 3-dose series) [facility] Start: 2006 Urine microalbumin profile DTaP,Tdap,Td Vaccine (1 - Tdap) [facility] Start: 2005 Hepatitis C screening Hepatitis C [facility] Start: 2005 [facility] CBC W Auto Different ial panel - Blood CBC and differential Lab Routine Menorrhagia with regular cycle Ordered: 12/07/2024 [facility] [employer] Work Phone: Comment on above: Ordered: 12/07/2024 CHLAMYDIA TRACHOMATI S (GENITO/STI) CHLAMYDIA TRACHOMATIS (GENITO/STI) Lab Routine Vaginal discharge Ordered: 10/06/2024 [facility] Comment on above: Ordered: 10/06/2024 Cytology Cervical or vaginal smear or scraping study Pap Smear Pathology and Cytology Routine Well woman exam with routine gynecological exam Ordered: 10/06/2024 [facility] [employer] Work Phone: Comment on above: Ordered: 10/06/2024 Endometrial biopsy Endometrial b iopsy Procedures Routine Menorrhagia with regular cycle Abnormal uterine bleeding (AUB) Pelvic pain in female Or[facility]: [facility]23/[facility]24 [facility]: Comment on above: Ordered: 12/23/2024 hCG, quantitative, hCG, quantitative, Lab Routine Menorrhagia with regular cycle Ordered: 12/07/2024 [facility] [employer] Comment on above: Ordered: 12/07/2024 Hemoglobin A1c/Hemoglobin.total in Blood Hemoglobin A1c Lab Routine Menorrhagia with regular cycle Ordered: 12/07/2024 [facility] [employer] Comment on above: Ordered: 12/07/2024 Human papilloma viru s DNA [Presence] in Unspecified specimen by Probe with amplification HPV DNA probe, amplified Microbiology Routine Well woman exam with routine gynecological exam Ordered: 10/06/2024 [facility] [employer] Comment on above: Ordered: 10/06/2024 Neisseria gonorrhoea e DNA [Presence] in Unspecified specimen by PAMELA with probe detection Neisseria gonorrhea DNA probe, direct Lab Routine Vaginal discharge Ordered: 10/06/2024 [employer] [employer] Comment on above: Ordered: 10/06/2024 Prothrombin time (PT ) in Blood by Coagulation assay Protime-INR Lab Routine Menorrhagia with regular cycle Ordered: 12/07/2024 [facility] [employer] Comment on above: Ordered: 12/07/2024 SURESWAB(R) ADVANCED VAGINITIS PLUS, TMA SURESWAB(R) ADVANCED VAGINITIS PLUS, TMA Pathology and Cytology Routine Yeast infection Ordered: 10/06/2024 [facility] Comment on above: Ordered: 10/06/2024 Thyrotropin [Units/volume] in Serum or Plasma TSH Lab Routine Menorrhagia with regular cycle Ordered: 12/07/2024 [facility] Comment on above: Ordered: 12/07/2024 Thyroxine (T4) free [Mass/volume] in Serum or Plasma T4, free Lab Routine Menorrhagia with regular cycle Ordered: 12/07/2024 [facility] Comment on above: Ordered: 12/07/2024 [facility] Immunizations Immunization Date Immunization Notes Care Provider [facility] 11-10-2024 influenza virus vaccine, unspecified formulation Vandana Alcaraz DO Work Phone: [facility] 10-10-2023 influenza, injectable, quadrivalent, contains preservative Tavon Rangel Other [facility] Other 10-10-2023 influenza virus vaccine, unspecified formulation Vandana Alcaraz DO Work Phone: [facility] 10-12-2021 influenza, seasonal, injectable Tavon Rangel Other [facility] Other 09-29-2021 COVID-19 Vaccine Moderna - Documentation Purposes Only Tavon Rangel Other [facility] Other 08-31-2021 COVID-19 Vaccine Moderna - Documentation Purposes Only Tavon Rangel Other [facility] Other 10-20-2015 influenza, injectable, quadrivalent, contains preservative Tavon Rangel Other [facility] Other NEGATED: Highlighted row has not occurred!02-09-2020 influenza, seasonal, injectable Patient Objection Tavon Rangel Other [facility] Other Payers Date Payer Category Payer Self-pay 2023 Unknown MERE ROSENBERG PPO [id number] 2023-Present [phone] [address] [place] [address] PPO [id number] 2020 Private Health Insurance [id number] 2020 Unknown [id number] 1987 Unknown [id number] 1987 Unknown [id number] 1987 Unknown [id number] 1987 Unknown [id number] 1987 Unknown [id number] [id number] 1959 Unknown [id number] Unknown [id number] Unknown [id number] Social History Date Type Detail Facility Unknown if ever smoked [facility] Other Start: 03-23-2024 End: 10-06-2024 Sex Assigned At [employer] Other Tobacco smoking status FLIS Tobacco smoking consumption unknown [facility] Start: 1985 Sex Assigned At Not on file [facility] Start: 03-23-2024 End: 10-06-2024 History of Social function [facility] National Score (1-100), lower number is lower risk 41 [facility] Start: 09-30-2023 Tobacco smoking status FLIS Smokes tobacco daily [facility] History of tobacco use Cigarette Smoker [facility] Start: 10-01-2023 End: 12-07-2024 Alcoholic beverage intake Lifetime non-drinker (finding) [facility] Start: 09-30-2023 Alcohol Comment Caffeine intak e: 1-2 cups per day soda, coffee [facility] Start: 1985 Sex assigned at Female N [facility] Start: 09-24-2023 Gender identity Identifies as female gender (finding) [facility] Clinical Notes 07-10-2019 to 12-23-2024 Caterina Everett - 12/23/2024 2:30 PM Suni Glover LPN - 12/07/2024 10:20 AM Norma Lundberg, MASSAGE THERAPY INSTRUCTOR - 10/06/2024 10:00 AM Jessica Stevens PA-C - 03/23/2024 9:42 AM EDT Note [...] on 01/22/[address] Alcaraz at [facility]. MEDICATIONS Current Outpatient Medications Medication Instructions atorvastatin [...] not crush, chew, or split. norethindrone-ethinyl estradiol (Junel 12/21) 1-20 MG-MCG tablet 1 tablet, Oral, Daily [...] nursing note reviewed. Exam conducted with a congregational care pastor present. Vitals: Estimated body mass index is [...] reviewed, and patient is to proceed to [facility]. Follow Up: Patient is to follow up between 1-2 weeks post op to assess proper healing and recovery from procedure. Documented by Milagro Lundberg LPN on behalf of: Vandana Alcaraz DO documented in this encounter [facility] 12-07-2024 History of Presen t illness Narrative [...] nursing note reviewed. Exam conducted with a congregational care pastor present. Vitals: Estimated body mass index is [...] completed childbearing. Patient will discuss surgery with nurse wound and placed on the books. Patient to return to clinic for pre-op appointment. Documented by Alisha Glover LPN on behalf of: Vandana Alcaraz DO documented in this encounter [facility] 10-06-2024 History of Presen t illness Narrative [...] nursing note reviewed. Exam conducted with a congregational care pastor present. Vitals: Estimated body mass index is [...] Vandana Alcaraz DO documented in this encounter [facility] 03-23-2024 Note HNO ID: [id number] Author: JESSICA CEDILLO PA-C Service: ? Author Type: Physician Brake Coupler Dinkey Type: Progress Notes Filed: 03/23/2024 10:05 Note Text: History of Present Illness Ms. JUSTINO KELLER is a 38 year old year old female presenting for: referred by No referring provider defined for this encounter. And is a patient of No primary care provider on file. To use this Smartlink, specify the provider ID whose address you want to display, e.g., .[email or web address][1 (where 1 is the provider ID). Communication [...] Medical Decision Making Level: 4 - Moderate [facility] 03-23-2024 Instructions Jessica Cedillo PA-C - 03/23/2024 9:55 AM EDT Take the medrol dose pack, stay on the flonase until you feel back to your baseline. If you get to 8 week aleah and you still feel symptoms then reach out, we will schedule a hearing test and then follow-up after documented in this encounter [facility] 03-23-2024 History of Presen t illness Narrative History of Present Illness Ms. JUSTINO KELLER is a 38 year old year old female presenting for: referred by No referring provider defined for this encounter. And is a patient of No primary care provider on file. To use this Smartlink, specify the provider ID whose address you want to display, e.g., .[email or web address][1 (where 1 is the provider ID). Communication [...] 4 - Moderate documented in this encounter [facility] 03-12-2024 Miscellaneous Notes Patient called back [...] antibiotic ear drops until she could see Erik later in the month. Would you be able to assist in filling the ear drops? Person Calling: Patient Reason for Call: Patient calked and stated that she seen Dr. Skinner with her mom yesterday, and a prescription was supposed to be put in for an antibiotic and another medication for infected ears. Pt Phone #: [phone] Pharmacy Name and # : [facility]/ [phone] Pt last seen: Visit date not found April Alvarez documented in this encounter [facility] 12-04-2023 Evaluation note Encounter Date Diagnosis Assessment Notes Dec, Prediabetes (ICD-10 - R73.03) Dec, Overweight (BMI 25.0-29.9) (ICD-10 - E66.3) Dec, Mixed hyperlipidemia (ICD-10 - E78.2) Dec, Tobacco abuse (ICD-10 - Z72.0) Dec, GERD (gastroesophageal reflux disease) (ICD-10 - K21.9) Dec, Migraine (ICD-10 - G43.909) Dec, Medication monitoring encounter (ICD-10 - Z51.81) Dec, Metabolic syndrome X (ICD-10 - E88.81) [facility] Other 12-05-2023 Evaluation note* Encounter Date Diagnosis Assessment Notes Treatment Notes Treatment Clinical Notes Nov, Encounter for smoking cessation counseling (ICD-10 - Z71.6) [facility] Other 11-09-2023 Evaluation note* Encounter Date Diagnosis [...] Oct, Flu vaccine need (ICD-10 - Z23) [facility] Other 10-26-2023 Evaluation note* Encounter Date Diagnosis [...] Sep, Overweight (BMI 25.0-29.9) (ICD-10 - E66.3) [facility] Other 10-19-2023 Evaluation note* Encounter Date Diagnosis Assessment Notes Treatment Notes Treatment Clinical Notes Sep, Migraine (ICD-10 - G43.909) [facility] Other 09-28-2023 Evaluation note* Encounter Date Diagnosis Assessment Notes Treatment Notes Treatment Clinical Notes Aug, Bilateral acute otitis media (ICD-10 - H66.93) [facility] Other 09-20-2023 Evaluation note* Encounter Date Diagnosis Assessment Notes Treatment Notes Treatment Clinical Notes Aug, Hyperlipidemia (ICD-10 - E78.5) Aug, Pre-diabetes (ICD-10 - R73.09) Aug, Other fatigue (ICD-1 0 - R53.83) [facility] Other 08-03-2023 Evaluation note* Encounter Date Diagnosis Assessment Notes Treatment Notes Treatment Clinical Notes Jul, Cervical pain (neck) (ICD-10 - M54.2) Jul, Migraine (ICD-10 - G43.909) [facility] Other 03-28-2023 Evaluation note* Encounter Date Diagnosis Assessment Notes Treatment Notes Treatment Clinical Notes Jan, Migraine (ICD-10 - G43.909) Jan, Insomnia (ICD-10 - G47.00) [facility] Other 03-01-2023 Evaluation note* Encounter Date Diagnosis [...] Jan, Tobacco abuse (ICD-1 0 - Z72.0) [facility] Other 11-18-2022 Evaluation note* Encounter Date Diagnosis Assessment Notes Treatment Notes Treatment Clinical Notes Oct, Prediabetes (ICD-10 - R73.03) Oct, Obesity (BMI 30.0-34.9) (ICD-10 - E66.9) Oct, GERD (gastroesophageal reflux disease) (ICD-10 - K21.9) Oct, Constipation (ICD-10 - K59.00) 18 Oct, 2022 Mixed hyperlipidemia (ICD-10 - E78.2) Oct, Nausea (ICD-10 - R11.0) Oct, Migraine (ICD-10 - G43.909) Oct, Medication monitorin g encounter (ICD-10 - Z51.81) Oct, Insomnia (ICD-10 - G47.00) Oct, Metabolic syndrome X (ICD-10 - E88.81) Oct, Tobacco abuse (ICD-1 0 - Z72.0) [facility] Other 10-17-2022 Evaluation note* Encounter Date Diagnosis Assessment Notes Treatment Notes Treatment Clinical Notes Sep, Migraine (ICD-10 - G43.909) [facility] Other 10-07-2022 Evaluation note* Encounter Date Diagnosis [...] Sep, Tobacco abuse (ICD-1 0 - Z72.0) [facility] Other 08-11-2022 Evaluation note* Encounter Date Diagnosis Assessment Notes Treatment Notes Treatment Clinical Notes Jul, Hyperlipidemia (ICD-10 - E78.5) Jul, Cervical pain (neck) (ICD-10 - M54.2) [facility] Other 06-16-2022 Evaluation note* Encounter Date Diagnosis [...] help her. Patient is agreeable. Referral initiated. [facility] Other 04-12-2022 Evaluation note* Encounter Date Diagnosis Assessment Notes Treatment Notes Treatment Clinical Notes Mar, Migraine (ICD-10 - G43.909) [facility] Other 03-10-2022 Evaluation note* Encounter Date Diagnosis [...] - D72.829) Jan, Fatigue (ICD-10 - R53.83) [facility] Other 02-28-2022 Evaluation note* Encounter Date Diagnosis Assessment Notes Treatment Notes Treatment Clinical Notes Jan, Hyperlipidemia (ICD-10 - E78.5) [facility] Other 01-12-2022 Evaluation note* Encounter Date Diagnosis Assessment Notes Treatment Notes Treatment Clinical Notes Dec, Hyperlipidemia (ICD-10 - E78.5) [facility] Other 08-09-2019 History general Narrative - Reported* Type Description Date Medical History migraine Medical History 07/10/2019 EKG Surgical History Thoracic Outlet Surgery 2006 Surgical History Hernia surgery rt groin 2007 Hospitalization History see surgical hx Hospitalization History child 2018 [facility] Other Evaluation noteNo InformationNort Plaid Other Evaluation note* Diagnosis Dysfunction of both eustachian tubes- Primary Dysfunction of Eustachian tube [facility] Diagnosis Well woman exam with routine gynecological exam Routine gynecological examination Urinary tract infection without hematuria, site unspecified Yeast infection Vaginal discharge Leukorrhea, not specified as infective Irregular periods/menstrual cycles documented in this encounter [facility]* Diagnosis Boils Carbuncle and furuncle of unspecified site Encounter for surveillance of other contraceptive Consultation for sterilization Other general counseling and advice for contraceptive management Urinary tract infection without hematuria, site unspecified Menorrhagia with regular cycle [facility] Pre-op evaluation Request for sterilization Menorrhagia with regular cycle Abnormal uterine bleeding (AUB) Pelvic pain in female Unspecified symptom associated with female genital organs documented in this encounter [facility] Reason for Referral Reason 07/17/22 @ 2:30pm consult and treat Diagnosis 1 BMI 34.0-34.9,adult (Z68.34) Referral Organization [facility] [place] Referring Provider First Name Tavon Referring Provider Last Name Juan Carlos Referring Provider Specialty Family Prac mady Referred Organization [facility] Referred Provider Souleymane Bolton Referred Address [address],[place], [place],[address] Referred Provider Specialty Internal Med icine Referral Priority Routine Referral Appointment Date 2022-07-17 General Notes Maldonado Vokaycee Lilly 022 02:28:37 PM >Received today and [...] content) DATE CREATED AUTHOR 12/12/2022 [facility] DATE CREATED AUTHOR AUTHOR'S ORGANIZ ATION 03/23/2024 [facility] DATE CREATED AUTHOR AUTHOR'S ORGANIZ ATION 12/26/2024 [facility] DATE CREATED AUTHOR AUTHOR'S ORGANIZ ATION 01/01/2025 [facility] EPIC Source Comments (unrecognize d section and content) In the event this informatio n is protected by the Federal Confidentiality of Alcohol and Drug Abuse Patient Records regulations: The Federal rules restrict any use of the information to criminally investigate or prosecute any alcohol or drug abuse patient.[facility] Hospital[facility] the event this information is protected by the Federal Confidentiality of Alcohol and Drug Abuse Patient Records regulations: The Federal rules restrict any use of the information to criminally investigate or prosecute any alcohol or drug abuse patient.[facility] Care Teams (unrecognized sec tion and content) Cda Teacher Relationship Specialty Start Date End Date Tavon Rangel MD [address] [place] [address] PCP - General 10/01/23 Cda Teacher Relationship Specialty Start Date End Date Tavon Rangel MD [address] [place] [address] PCP - General 10/01/23 Cda Teacher Relationship Specialty Start Date End Date Tavon Rangel MD [address] [place] [address] PCP - General 10/01/23 Cda Teacher Relationship Specialty Start Date End Date Tavon Rangel MD [address] [place] [address] PCP - General 10/01/23 Cda Teacher Relationship Specialty Start Date End Date Tavon Rangel MD [address] [facility] [place] [address] PCP - General 10/01/23 Cda Teacher Relationship Specialty Start Date End Date Tavon Rangel MD [address] [facility] [place] [address] PCP - General 10/01/23 Cda Teacher Relationship Specialty Start Date End Date Tavon Rangel MD [address] [facility] [place] [address] PCP - General 10/01/23 Cda Teacher Relationship Specialty Start Date End Date Tavon Rangel MD [address] [place] [address], [place] [address] PCP - General 10/01/23 FOR RECORDS [...] BE BASED ON THE PRIMARY CLINICAL RECORDS. [facility] mig[facility]. provides no warranty or guarantee of the accuracy or completeness of information in this document.
[2025-01-22] MEDS: LACTATED RINGER'S SOLUTION 1,000 ML 50 ML IV (08:13)
[2025-01-22 08:19] LABS: HCG Quantitative <1 mIU/mL
[2025-01-22 08:43] LABS: Glucometer 97 mg/dL (74-106)
--- NOTE | 2025-01-22 11:22 | P.ON_ITS ---
Brief Operative Note Date of procedure: 01/22/25 Pre-op diagnosis general: menorrhagia, desires permanent sterilization Post-op diagnosis: same as pre-op Procedure: NAME OF PROCEDURE: robotic assisted Laparoscopic bilateral salpingectomy, with Deysi endometrial ablation with hysteroscopy PROCEDURE: The patient was taken back to the OR where she was prepped and draped in the normal sterile fashion after being placed in the dorsal lithotomy position, after being placed under general anesthesia without difficulty. a weighted speculum was then placed into the vagina. Pap and endometrial bx were performed without difficultyThe anterior lip was grasped with a single tooth tenaculum. The patient was then sounded to approximatley 9cm. The patient was gently sounded using Hegar dilators and the hysteroscope was passed through the cervix into the uterus where both ostia were seen. No gross evidence of polyps, fibroids or malignancy. The cervical length was noted to be 4cm. The Deysi ablation apparatus was set to approximately 5cm in length. This was placed in through the cervix and into the uterus. After the seal was tested, at that time the total ablation of 120 seconds was performed with the Deysi without difficulty. All instruments were removed from the vagina. A wet sponge stick was placed into the patient's vagina. Attention was then turned to the patient's abdomen, where a scalpel was used to make a small infraumbilical incision. The S retractors were then used to dissect the underlying layers until the fascia could be seen. The fascia was then grasped with Marek clamps and tented up. A knife was then used to make a small incision to the fascia. The muscle was identified, at that time two sutures of #0 Vicryl on a GI needlewas then used and placed through the fascia. The peritoneum was then identified and entered bluntly. The 10-4 Orly was then placed into the patient's abdomen. This was confirmed with direct visualization of the bowel, using the laparoscope. The patient's abdomen was then insufflated using approximately 4 liters of CO2 gas. Survey of the patient's abdomen demonstrated normal appearing ovaries, uterus and tubes. A second and third lateral robotic ports, which was 8mm in size, was then placed laterally after incision was made in the skin under direct visualization. the robotic arms were engaged. The patient's tube on the patient's right side was identified. The tube was then tented up using a grasper. The ligasure was used to transect and coagulate the mesosalpingx from the fimbriated end to the insertion at the uterus, the tube was amputated and removed in its entirety.? Excellent hemostasis was noted. ?This was performed on the contralateral sideas well. The lateral ports were then moved under direct visualization with excellent hemostasis. The abdomen was deinsufflated. All instruments were removed from the patient's abdomen. The fascia was closed using the #0 Vicryl on GI needle. The skin was closed using 4- 0 Vicryl subcuticularly. All instruments were removed from the patient's vagina as well. The patient was taken out of the dorsal lithotomy position and placed in the supine position and taken to recovery in stable condition. Sponge, lap and needle counts were correct x2. ??? Anesthesia: URSZULA Surgeon: Jarrett Alcaraz Controls Design Engineer: Audra Reynoso Estimated blood loss (mL): 5 Pathology: other (tubes) Condition: stable Disposition: PACU Urinary Catheter Management Urinary Catheter Management Urethral: Cath placed during this visit: no
[2025-01-22] MEDS: LACTATED RINGER'S SOLUTION 1,000 ML 1000 ML IV (11:40)
[2025-01-22] MEDS: PROMETHAZINE HCL 25 MG TABLET PO (12:15)
--- NOTE | 2025-01-22 12:16 | PC.NURSE ---
1215: pt reports nausea,pt given 25mg PO Phenergan per 's order at this time.
[2025-01-22] MEDS: OXYCODONE HCL/ACETAMINOPHEN 5MG/325MG 1 TAB PO (12:43)
--- NOTE | 2025-01-22 12:51 | PC.NURSE ---
1240: pt voids without difficulty,urine clear,yellow.
== END 2025-01-22 14:15 | disposition home or self-care (01) ==
PROVIDERS: PCP Family Medicine; Visit Provider Obstetrics & Gynecology
PROC: (CPT 840; principal; 2025-01-22 09:05)
PROC: (CPT 840; 2025-01-22 09:05)
DX: Z30.2 Encounter for sterilization (principal); N92.0 Excessive and frequent menstruation with regular cycle; N93.9 Abnormal uterine and vaginal bleeding, unspecified; R10.2 Pelvic and perineal pain; F17.290 Nicotine dependence, other tobacco product, uncomplicated
CPT/HCPCS: 58563; 58661; 36415; 82948; 84702; 85025; 88302; J0131; J1100; J1885; J2250; J2371; J2405; J2704; J3010; Q0169

== ENCOUNTER 2025-10-21 16:32 | Outpatient (REF) | payer OTHER, SELFPAY ==
--- OUTSIDE RECORDS SUMMARY | 2025-10-21 11:00 | XMS_ITS | Encounter Summary ---
Author Organization [facility] Address [address] [place] [address] Care Team Providers Care Diesel Pile Hammer Operator Name Role Phone Garrickjose lTavon DO Primary Care Provider [phone] Reason for Visit * ReasonCommentsWell Women Visit Encounter Details DateTypeDepartmentCare Team (Latest Contact Info)Zjlorzrxvxv48/20/2025 11:00 AM ESTOffice Visit [facility] [address] [place] [phone] Jarrett Alcaraz DO [address] [place] [address] Well woman exam with routine gynecological exam Social History Tobacco UseTypesPacks/DayYears UsedDateSmoking Tobacco: Every DayCigarettes Alcohol UseStandard Drinks/WeekCommentsNever0 (1 standard drink = 0.6 oz pure alcohol)Caffeine intake: 1-2 cups per day soda, coffeeCommentsNoSex and Gender InformationValueDate RecordedSex Assigned at YwtcwIfkqgx24/24/2023 9:45 AM EDTLegal DucLxezjr03/15/2023 6:58 PM EDTGender OogxrcozBwznvk73/24/2023 9:45 AM EDTSexual OrientationNot on filedocumented as of this encounter Last Filed Vital Signs Vital SignReadingTime TakenCommentsBlood Iizygxbl070/7010/21/2025 11:00 AM EST Pulse--Temperature--Respiratory Rate--Oxygen Saturation--Inhaled Oxygen Concentration--Jsawwc63.1 kg (214 lb 1.9 oz)10/21/2025 11:00 AM ESTHeight--Body Mass Index32.561 9:03 AM EDTdocumented in this encounter Plan of Treatment DateTypeDepartmentCare Team (Latest Contact Info)Rnrvcdcbarn38/01/2026 11:00 AM ESTProcedure Visit [facility] [address] [place] [phone] Jarrett Alcaraz DO [address] [place] [address] NameTypePriorityAssociated DiagnosesOrder SchedulePap SmearPathology and CytologyRoutine Well woman exam with routine gynecological exam Ordered: 10/21/2025HPV DNA probe, amplifiedMicrobiologyRoutine Well woman exam with routine gynecological exam Ordered: 10/21/2025documented as of this encounter Visit Diagnoses Diagnosis Well woman exam with routine gynecological exam Routine gynecological examination documented in this encounter Care Teams Team MemberRelationshipSpecialtyStart DateEnd Date Tavon Rangel DO [address] [place] [address] PCP - Qbdofwu85/31/23documented as of this encounter
--- OUTSIDE RECORDS SUMMARY | 2025-10-21 16:35 | XMS_ITS | Encounter Summary ---
Author Organization [facility] Address [address] [place] [address] Care Team Providers Care Knockup Worker Name Role Phone Tavon Rangel Matilda CARTER Primary Care Provider [phone] Encounter Details DateTypeDepartmentCare Team (Latest Contact Info)Zbwlasremsw03/20/2025amboo flowsheet [facility] [address] [place] [address] Jarrett Alcaraz DO [address], [place] [address] Social History Tobacco UseTypesPacks/DayYears UsedDateSmoking Tobacco: Every DayCigarettes Alcohol UseStandard Drinks/WeekCommentsNever0 (1 standard drink = 0.6 oz pure alcohol)Caffeine intake: 1-2 cups per day soda, coffeeCommentsNoSex and Gender InformationValueDate RecordedSex Assigned at ZyertRkswnw40/24/2023 9:45 AM EDTLegal IclGpnbvy44/15/2023 6:58 PM EDTGender BwbpeoqzRdnofh90/24/2023 9:45 AM EDTSexual OrientationNot on filedocumented as of this encounter Plan of Treatment DateTypeDepartmentCare Team (Latest Contact Info)Pyoybigamuw78/01/2026 11:00 AM ESTProcedure Visit [facility] [address] [place] [address] Jarrett Alcaraz DO [address] [place] [address] documented as of this encounter Visit Diagnoses Not on filedocumented in this encounter Care Teams Team MemberRelationshipSpecialtyStart DateEnd Date Tavon Rangel DO [address] [place] [phone] PCP - Wlksuwj84/31/23documented as of this encounter
--- OUTSIDE RECORDS SUMMARY | 2025-10-21 16:35 | XMS_ITS | Clinical Summary ---
Author Organization [facility] Address [address] [place] [address] Care Team Providers Care Motor Pool Clerk Name Role Phone Garrickjose l Tavon Matilda CARTER Primary Care Provider [phone] Allergies Active AllergyReactionsCriticalityNoted OuqzErlyeamuDobtxdoweleIigaTrp63/31/2023 Hydrocodone-Htwcvrdnkgwok70/05/2024 Other Reaction(s): Unknown MorphineShortness of breath,Hives,Itching,XerfWauo07/27/2007 Other Reaction(s): Unknown Penicillin NQwdeZzk33/31/2023PenicillinsHives,Itching,YecrZqa7905/02/2006 Other Reaction(s): Unknown Sulfa AntibioticsRash,Hives,OclbkasSda16/30/2003 Other Reaction(s): Unknown Medications MedicationSigDispense QuantityRefillsLast FilledStart DateEnd DateStatus Emgality 120 MG/ML auto-injector Inject 120 mg under the skin 1 (one) time.Active zolpidem CR (Ambien CR) 6.25 MG ER tablet Take 6.25 mg by mouth as needed at bedtime for sleep. Do not crush, chew, or split.Active atorvastatin (Lipitor) 40 MG tablet Take 40 mg by mouth in the morning.Active cetirizine (ZyrTEC) 10 MG tablet 1 (one) time each day at the same timeActive cyclobenzaprine (Flexeril) 10 MG tablet 02/19/2024ctive ibuprofen 800 MG tablet 07/28/2024ctive levocetirizine (Xyzal) 5 MG tablet 1 (one) time each day at the same timeActive metFORMIN XR (Glucophage-XR) 500 MG 24 hr tablet Indications:Urinary tract infection without hematuria, site unspecified,Yeast infectionTAKE 1 TABLET BY MOUTH IN THE EVENING WITH MEALS DO NOT CRUSH, CHEW OR SPLIT. 30 tablet tive loratadine (Claritin) 10 MG tablet 1 (one) time each day at the same time10/21/2025Discontinued metFORMIN XR (Glucophage-XR) 500 MG 24 hr tablet Indications:Urinary tract infection without hematuria, site unspecified,Yeast infectionTake 1 tablet (500 mg) by mouth in the evening. Take with meals Do not crush, chew, or split. 30 tablet Discontinued norethindrone-ethinyl estradiol (12/21) 1-20 MG-MCG tablet Indications:Irregular periods/menstrual cyclesTake 1 tablet by mouth Daily 28 tablet Discontinued Active Problems ProblemNoted DateDiagnosed UcomAmqum39/06/2025ontraceptive surveillance 12/07/2024onsultation for pckputjbsnhch06/06/2025 Encounters DateTypeDepartmentCare YytrZurrpexabrg96/20/2025 11:00 AM ESTOffice Visit [facility] [address] [place] [address] Jarrett Alcaraz, DO Well woman exam with routine gynecological exam10/21/2025amboo flowsheet [facility] [address] [place] [address] Jarrett Alcaraz, 10/14/20250423Ecixqa88/28/2025Refill [facility] [address] [facility] [place] [place] [address] Jarrett Alcaraz, Urinary tract infection without hematuria, site unspecified; Yeast infectionfrom Last 3 Months Family History Medical HistoryRelationNameCommentsDiabetesFatherLupusMotherMultiple sclerosis MotherRelationNameStatusCommentsFatherAliveMotherAliveSonAlive1 Social History Tobacco UseTypesPacks/DayYears UsedDateSmoking Tobacco: Every DayCigarettes Tobacco Cessation:Ready to Q uit: Not Asked; Counseling Given: Not Answered Alcohol UseStandard Drinks/WeekCommentsNever0 (1 standard drink = 0.6 oz pure alcohol)Caffeine intake: 1-2 cups per day soda, coffeeCommentsNoSex and Gender InformationValueDate RecordedSex Assigned at PdxmfKikohb45/24/2023 9:45 AM EDTLegal RycKhrtzv16/15/2023 6:58 PM EDTGender YyxjeoliMskrft06/24/2023 9:45 AM EDTSexual OrientationNot on file Last Filed Vital Signs Vital SignReadingTime TakenCommentsBlood Mjgshuhk487/7010/21/2025 11:00 AM EST Pulse--Temperature--Respiratory Rate--Oxygen Saturation--Inhaled Oxygen Concentration--Oojwge77.1 kg (214 lb 1.9 oz)10/21/2025 11:00 AM CZQVjqcaw270.7 cm (5' 8 )10/01/2023 9:03 AM EDTBody Mass Index32.561 9:03 AM EDT Plan of Treatment DateTypeDepartmentCare Team (Latest Contact Info)Cybeevviglj75/01/2026 11:00 AM ESTProcedure Visit [facility] [address] [place] [address] Jarrett Alcaraz DO [address] [place] [address] Health MaintenanceDue DateLast DoneCommentsCOVID-19 Vaccine ( season) /, 08/31/2021Influenza Vaccine (#1)/09/2024, 10/10/2023, 11/15/2022, Additional history existsCervical Cancer Screening 10/06/2029HPV/Oynyep1310/06/2029Pap Smear/04/2024, 10/01/2023 Pneumococcal Vaccine: Pediatrics (0 to 5 Years) and At-Risk Patients (6 to 64 Years)Aged OutNo longer eligible based on patient's age to complete this topic Procedures Procedure NamePriorityDate/TimeAssociated DiagnosisCommentsPAP SMEARRoutine 10/06/2024 12:00 AM ESTfrom Last 3 Months or Most Recently Relevant to Health Maintenance Results * Pap Smear (10/06/2024 12:00 AM EST)Specimen (Source)Anatomical Location / LateralityCollection Method / VolumeCollection TimeReceived TimeSwabCervical swab / Unknown Narrative Authorizing ProviderResult TypeResult StatusCorey Kieran DOLAB CYTOLOGY ORDERABLESFinal ResultPerforming OrganizationAddressCity/State/ZIP CodePhone Number EXTERNAL LAB from Last 3 Months or Most Recently Relevant to Health Maintenance Insurance Care Teams Team MemberRelationshipSpecialtyStart DateEnd Date Tavon Rangel DO [address] [place] [address] PCP - Zhtxqac06/31/23
--- OUTSIDE RECORDS SUMMARY | 2025-10-21 16:35 | XMS_ITS | Encounter Summary ---
Author Organization [facility] Address [address] [place] [address] Care Team Providers Care Pillowcase Folder Name Role Phone Tavon Rangel DO Primary Care Provider [phone] Encounter Details DateTypeDepartmentCare Team (Latest Contact Info)Prlrrqxquad24/13/2025Travel Social History Tobacco UseTypesPacks/DayYears UsedDateSmoking Tobacco: Every DayCigarettes Alcohol UseStandard Drinks/WeekCommentsNever0 (1 standard drink = 0.6 oz pure alcohol)Caffeine intake: 1-2 cups per day soda, coffeeCommentsNoSex and Gender InformationValueDate RecordedSex Assigned at SufgsPyfiae36/24/2023 9:45 AM EDTLegal TmiZtuxkr21/15/2023 6:58 PM EDTGender GbnrfwmrLvmppn76/24/2023 9:45 AM EDTSexual OrientationNot on filedocumented as of this encounter Plan of Treatment DateTypeDepartmentCare Team (Latest Contact Info)Iynazjeurkj32/01/2026 11:00 AM ESTProcedure Visit [facility] [address] [address] Jarrett Alcaraz DO [address] [place] [address] documented as of this encounter Visit Diagnoses Not on filedocumented in this encounter Care Teams Team MemberRelationshipSpecialtyStart DateEnd Date Tavon Rangel DO [address] [place] [address] [facility] - Epcxjem26/31/23documented as of this encounter
--- OUTSIDE RECORDS SUMMARY | 2025-10-21 16:35 | XMS_ITS | Clinical Summary ---
Author Organization [facility] Address [address] [place] [address] Care Team Providers Care Icing Mixer Name Role Phone Unavailable Primary Care Provider Unavailabl e Allergies Active AllergyReactionsCriticalityNoted IlaxZnzvrbakIzdexjzyInsxr31/27/2007 JqzluqscrcbRvcw50/01/2006Sulfa (Sulfonamide Antibiotics)Rash,Hives08/31/2003 Medications MedicationSigDispense QuantityRefillsLast FilledStart DateEnd DateStatus Etonogestrel-Ethinyl Estradiol (NUVARING) 0.12-0.015 mg/24 hr VAGINAL Ring as bfonpfpn609/20/2007ctive oxycodone-acetaminophen (PERCOCET) 5-325 mg ORAL Tab as needed/ not every vba607ctive tizanidine hcl(ZANAFLEX 4 MG TAB) Take one(1) tablet daily at hupyhne953/11/2009ctive acetaminophen(TYLENOL EXTRA STRENGTH 500 MG TAB) Take two(2) tablets every four(4) to six(6) hours as needed.ctive galcanezumab-gnlm (EMGALITY SYRINGE) 120 mg/mL syringe Inject 120 mg subcutaneously once every month. Do not shake.Active zolpidem (AMBIEN) 10 mg Take 10 mg by mouth at bedtime as needed.Active atorvastatin (LIPITOR) 40 mg tablet Take 40 mg by mouth once daily.Active methylPREDNISolone (MEDROL DOSE-PACK) 4 mg Dose-Pack As Instructed per package 21 tablet 10/01/2025tive methylPREDNISolone (MEDROL DOSE-PACK) 4 mg Dose-Pack As Instructed per package 21 tablet Discontinued(Course of therapy completed) Active Problems ProblemNoted DateDiagnosed DateInguinal hernia without mention of obstruction or gangrene, unilateral or unspecified, (not specified as recurrent)04/22/2007 DERMATITIS , SRTOSHC1505/21/2006 Encounters DateTypeDepartmentCare RjtwGfetbsreija33/31/2025 2:40 PM EDTOffice Visit Otolaryngology [address] [place] [address] Yovani Duffy PA-C Dysfunction of both eustachian tubes (Primary Dx)10/01/20257831Wgfopj74/30/2025 Patient Msg Otolaryngology [address] [place] [address] Yovani Duffy PA-C Appointment Requestfrom Last 3 Months Social History Tobacco UseTypesPacks/DayYears UsedDateSmoking Tobacco: Never AssessedArea Deprivation IndexAnswerDate RecordedNational Score (1-100), lower number is lower odyv159010/01/2025State Score (1-10), lower number is lower hawk942 Data from: https://www.neighborhoodatlas.[facility].edu/. Last address used for wyfkl[address]ge[address]/01/[birth year]25CommentsNoSex and Gender InformationValueDate RecordedSex Assigned at BirthNot on fileLegal SexFemale 11/02/2012 9:59 AM ESTGender IdentityNot on fileSexual OrientationNot on file Last Filed Vital Signs Vital SignReadingTime TakenCommentsBlood Gmipaxxu509/7011/11/2009 8:24 AM EST Zodcm603711/11/2009 8:24 AM JMCCtzmlmqdivs01.6 ??C (97.8 ??F)03/28/2007 5:00 PM EDTRespiratory Yrti058901/12/2009 8:24 AM ESTOxygen Saturation--Inhaled Oxygen Concentration--Cyfpfv06 kg (200 lb 9.9 oz)03/28/2007 5:00 PM OCENjxuvt269 cm (5' 7.72 )03/28/2007 5:00 PM EDTBody Mass Index30.76003/28/2007 5:00 PM EDT Plan of Treatment DateTypeDepartmentCare Team (Latest Contact Info)Tppyjlrhyee12/29/2025 12:30 PM ESTOffice Visit Audiology [address] [facility] [address] [place] [address] Toña Ponec AuD, [facility] [address] [place] [address] Dx: Dysfunction of both eustachian tubes [H69.93]11/29/2025 1:00 PM ESTOffice Visit Otolaryngology [address] [facility] [address] [place] [address] Yovani Duffy PA-C [address] [place] [address] 2 month f/uHealth MaintenanceDue DateLast DoneCommentsAnxiety Screening 2005Depression Ukmnwgejr45/22/2005HIV Kcixefntk86/22/2005Hepatitis C Bjhxcwtya27/22/2005DTaP,Tdap,Td Vaccine (1 - Tdap)2006Hepatitis B Vaccine (1 of 3 - 19+ 3-dose series)2006Cervical Cancer Alwfunexz99/22/2008HPV Vaccine (1 - 3-dose SCDM series)2014Covid-19 Vaccine (3 - season) /, 08/31/2021Influenza Vaccine (#1)/09/2024, 10/10/2023, 11/15/2022, Additional history exists Insurance [facility] Address: [id number] [place] [address]
[2025-10-26 10:09] LABS: Age Gdln ACOG Testing Note (.); IGP, Aptima HPV, rfx 16/18,45 Note (.)
== END 2025-10-21 16:33 | disposition home or self-care (01) ==
LOC: LAB 16:32
PROVIDERS: PCP Family Medicine; Visit Provider Obstetrics & Gynecology
DX: Z01.419 Encounter for gynecological examination (general) (routine) without abnormal findings (principal)
CPT/HCPCS: 87624; 88175